=== PATIENT | male | born 1990 | race American Indian/Alaskan Native ===

== ENCOUNTER 2021-02-15 12:20 | Inpatient (IN) | payer SELFPAY ==
[2021-02-15] MEDS ORDERED: NORepinephrine/NS 4 MG-250 ML 4 MG/250 ML BAG IV ONE (12:32)
[2021-02-15] MEDS ORDERED: NORepinephrine/NS 4 MG-250 ML 4 MG/250 ML BAG IV SCH (13:00)
[2021-02-15] MEDS ORDERED: ATROPINE 0.1% (1 MG/10 ML) CARDIAC SYRINGE IV ONE (13:10)
[2021-02-15] MEDS ORDERED: CALCIUM CHLORIDE 1,000 MG in SODIUM CHLORIDE 0.9% 100 ML IV ONE ×2 (13:10→14:00)
[2021-02-15] MEDS ORDERED: MAGNESIUM SULFATE 2 GM/50 ML BAG IV ONE (13:10)
[2021-02-15] MEDS ORDERED: fentaNYL 100 MCG/2 ML INJ IV PRN (13:10)
[2021-02-15] MEDS ORDERED: MINERAL OIL/PETROLATUM, WHITE OPHTH OINT 3.5 GM OU PRN (13:10)
[2021-02-15] MEDS ORDERED: LIP THERAPY VASELINE TP PRN (13:10)
[2021-02-15] MEDS ORDERED: DEXTROSE 50% IN WATER (25GM) 50 ML VIAL IV PRN (13:18)
[2021-02-15] MEDS ORDERED: DEXTROSE 50% IN WATER (25GM) 50 ML VIAL IV ONE (13:18)
[2021-02-15] MEDS ORDERED: CEFEPIME/NS 2 GM/100 ML 2 GM/100 ML BAG IV ONE (13:19)
[2021-02-15] MEDS ORDERED: HYDROCORTISONE SOD SUCC 100 MG/2 ML VIAL IV ONE (13:19)
[2021-02-15] MEDS ORDERED: LACTATED RINGERS 1,000 ML IV ONE (13:21)
--- NOTE | 2021-02-15 13:21 | Emergency Department Report ---
ED General Adult HPI - General Chief complaint: Cardiac Arrest/CPR Stated complaint: CARDIAC ARREST Time Seen by Provider: 02/15/21 13:04 Source: EMS (Verbal report received from emergency medical services. EMS documentation not available at time of chart dictation ), RN notes reviewed Mode of arrival: Stretcher Limitations: Altered Mental Status, Physical Limitation - History of Present Illness Initial comments: The patient is a 30-year-old gentleman. He is not known to myself previously. He is brought to the hospital by emergency medical services as an [id number] nontraumatic cardiac arrest. Patient arrives with a Kushal airway in place, receiving CPR by EMS. He presents with a GCS of 3, at this point time, family and friends not available for additional information or collateral information. All history obtained from EMS. EMS reports that they received a call for an unresponsive patient. They believe the patient's total downtime prior to their arrival is approximately 10 minutes. EMS states the family did not start CPR in the field. EMS reports that upon their arrival, the patient is pulseless, with dilated pupils, they do not believe a check an Accu-Chek, and they intubated the patient with a Kushal airway. They report the patient's initial rhythm was pulseless electrical activity. EMS continue standard ACLS interventions for approximately 20 minutes, until they arrived to this emergency department. When the patient arrived to the emergency room, pupils are midpoint and do not react to light, has copious oral secretions coming from oropharynx, and he is found to be in pulseless electrical activity. Standard ACLS interventions are administered. He is found to have sinan lower extremity edema, as well as impressive JVD. During his resuscitation, a bedside [id number] transthoracic echocardiogram was performed, which demonstrated a pericardial effusion, what appeared to be clot formation in the right atrium and the right ventricle, LV hypokinesis, and right ventricular dyskinesis. While in the emergency room, QRS morphology widened out, became suspicious for monomorphic ventricular tachycardia. Given concern for hyperkalemia, secondary to JVD, and sinan lower extremity edema, patient treated aggressively for presumed hyperkalemic cardiac arrest, including standard ACLS interventions, with the exception of amiodarone, as we are concerned that amiodarone may precipitate cardiovascular collapse and cause complete cardiac arrest. Patient received multiple rounds of epinephrine, calcium, sodium bicarbonate. Bedside Accu-Chek found to be less than 20, therefore insulin is held. The patient was defibrillated multiple times. While in the emergency room, the patient lost pulses multiple times. Secondary to loss of pulses multiple times, vasopressor requirement, medication requirement, the patient had an emergent nonsterile right-sided femoral central line placed using real-time ultrasound guidance. Please reference the procedure note. After a prolonged resuscitation (please reference nursing notes), we were able to obtain return of spontaneous circulation, with QRS complexes narrowing. The patient is on vasopressors, with a GCS of 3. This hospital does not have a postarrest hypothermia protocol, the patient is also found to be hypothermic with a core temperature of 87 degrees. Laboratory studies demonstrated anemia, hyperkalemia, azotemia, uremia and metabolic acidosis. He is also found to have evidence of hypoglycemia. Packed red blood cells ordered. Protonix ordered. Norepinephrine ordered. Hyperkalemia cocktail ordered. D5 half-normal ordered. Contacted nephrology on-call, Dr. Yuen. Discussed the patient's history, physical, laboratory studies and clinical impression. He will evaluate the patient emergently. This patient requires emergent hemodialysis, Dr. Yuen and I will provide emergent and administrative consent for hemodialysis Elevated troponin is likely secondary to type II troponin leak. Contacted critical care physician on-call, Dr. Manriquez Have requested emergent critical care consultation for dialysis catheter placement. Currently awaiting callback from family. Please note that this hospital in critical care unit do not have a postarrest hypothermia protocol. -: This morning - Related Data Allergies Allergy/AdvReac Type Severity Reaction Status Date / Time Unable to Assess Allergy Verified 02/15/21 12:34 ED Review of Systems ROS: Stated complaint: CARDIAC ARREST Other details as noted in HPI Comment: Unobtainable due to pts medical conditions ED Physical Exam - General Limitations: Altered Mental Status, Other General appearance: obtunded - Head Head exam: Present: atraumatic, normocephalic - Eye Eye exam: Present: other (Pupils are midpoint and dilated) - ENT ENT exam: Present: normal orophraynx, normal external ear exam, other (Copious secretions noted in the oropharynx. Patient arrives with a Kushal airway in place. Multiple maxillary teeth are noted to be loose and mobile. These are present upon arrival) - Neck Neck exam: Present: normal inspection, other (JVD is noted) - Respiratory Respiratory exam: Present: respiratory distress, rales, rhonchi - Cardiovascular Cardiovascular Exam: Present: bradycardia, JVD - GI/Abdominal GI/Abdominal exam: Present: soft. Absent: distended, tenderness, guarding, rigid, pulsatile mass - Rectal Rectal exam: Present: normal inspection - exam: Present: normal inspection External exam: Present: normal external exam - Extremities Exam Extremities exam: Present: normal inspection, pedal edema (3-4+ edema in the bilateral lower extremities), other (2+ femoral pulses noted) - Back Exam Back exam: Present: normal inspection. Absent: tenderness, CVA tenderness (R), CVA tenderness (L), paraspinal tenderness, vertebral tenderness - Neurological Exam Neurological exam: Present: altered, other (Patient has a GCS of 3.) - Skin Skin exam: Present: warm, dry, intact, normal color. Absent: rash ED Course Vital Signs 02/15/21 02/15/21 02/15/21 12:28 12:38 12:45 Temperature Pulse Rate 66 Pulse Rate [ Anterior Bilateral Throughout] Respiratory 14 Rate Respiratory Rate [Anterior Bilateral Throughout] Blood Pressure Blood Pressure 85/45 73/48 [Left] O2 Sat by Pulse 100 Oximetry O2 Sat by Pulse Oximetry [ Anterior Bilateral Throughout] 02/15/21 02/15/21 02/15/21 12:58 13:00 13:10 Temperature 87.1 F L 87.1 F L Pulse Rate 71 76 71 Pulse Rate [ Anterior Bilateral Throughout] Respiratory 17 17 Rate Respiratory Rate [Anterior Bilateral Throughout] Blood Pressure 123/79 99/56 Blood Pressure 99/56 [Left] O2 Sat by Pulse 81 L 100 100 Oximetry O2 Sat by Pulse Oximetry [ Anterior Bilateral Throughout] 02/15/21 02/15/21 02/15/21 13:17 13:20 13:22 Temperature Pulse Rate 82 81 75 Pulse Rate [ Anterior Bilateral Throughout] Respiratory 18 12 11 L Rate Respiratory Rate [Anterior Bilateral Throughout] Blood Pressure Blood Pressure 126/93 164/93 152/101 [Left] O2 Sat by Pulse 92 92 91 Oximetry O2 Sat by Pulse Oximetry [ Anterior Bilateral Throughout] 02/15/21 02/15/21 02/15/21 13:45 14:52 15:02 Temperature 89.1 F L Pulse Rate Pulse Rate [ 78 Anterior Bilateral Throughout] Respiratory Rate Respiratory 16 Rate [Anterior Bilateral Throughout] Blood Pressure Blood Pressure [Left] O2 Sat by Pulse 100 Oximetry O2 Sat by Pulse Oximetry [ Anterior Bilateral Throughout] 02/15/21 02/15/21 02/15/21 16:00 16:15 16:30 Temperature Pulse Rate 75 75 83 Pulse Rate [ Anterior Bilateral Throughout] Respiratory 22 Rate Respiratory Rate [Anterior Bilateral Throughout] Blood Pressure 130/86 130/86 112/75 Blood Pressure [Left] O2 Sat by Pulse Oximetry O2 Sat by Pulse 95 Oximetry [ Anterior Bilateral Throughout] 02/15/21 02/15/21 02/15/21 16:39 16:45 17:00 Temperature Pulse Rate 88 85 85 Pulse Rate [ Anterior Bilateral Throughout] Respiratory Rate Respiratory Rate [Anterior Bilateral Throughout] Blood Pressure 112/75 67/32 75/40 Blood Pressure [Left] O2 Sat by Pulse 100 Oximetry O2 Sat by Pulse Oximetry [ Anterior Bilateral Throughout] 02/15/21 02/15/21 02/15/21 17:15 17:30 17:34 Temperature Pulse Rate 89 98 H 98 H Pulse Rate [ Anterior Bilateral Throughout] Respiratory Rate Respiratory Rate [Anterior Bilateral Throughout] Blood Pressure 86/43 107/63 107/63 Blood Pressure [Left] O2 Sat by Pulse Oximetry O2 Sat by Pulse Oximetry [ Anterior Bilateral Throughout] 02/15/21 02/15/21 02/15/21 17:45 18:00 18:15 Temperature Pulse Rate 99 H 100 H 102 H Pulse Rate [ Anterior Bilateral Throughout] Respiratory Rate Respiratory Rate [Anterior Bilateral Throughout] Blood Pressure 101/60 100/60 115/72 Blood Pressure [Left] O2 Sat by Pulse Oximetry O2 Sat by Pulse Oximetry [ Anterior Bilateral Throughout] 02/15/21 18:34 Temperature 92.2 F L Pulse Rate 101 H Pulse Rate [ Anterior Bilateral Throughout] Respiratory 19 Rate Respiratory Rate [Anterior Bilateral Throughout] Blood Pressure 113/73 Blood Pressure [Left] O2 Sat by Pulse Oximetry O2 Sat by Pulse 95 Oximetry [ Anterior Bilateral Throughout] - Reevaluation(s) Reevaluation #1: 02/15/21 14:19 Differential diagnosis, including but not limited to: Azotemia, uremia, hyperkalemia, cardiac arrest, pericardial effusion, myocarditis, pericarditis, pneumonia, pneumonitis, anoxic brain injury, respiratory failure, anemia of renal insufficiency/chronic disease Assessment and plan: 30-year-old gentleman, status post out of hospital cardiac arrest, family did not provide CPR, pulseless for approximately 1/2-hour, has lost pulses multiple times while here in the emergency room, but ultimately we are able to obtain return of spontaneous circulation. Maintain patient on hand sewer shoes. Continue supportive care. Have requested emergent critical care, nephrology, and cardiology consultation. This hospital does not have a postarrest hypothermia protocol. Patient to be medicated aggressively for hyperkalemia. Nephrology to see patient urgently/emergently, and place hemodialysis orders. Critical care contacted, will evaluate the patient, place hemodialysis catheter, and arrange for placement to the intensive care unit. Elevated troponin reviewed and appreciated. Suspect that this is a type II troponin leak. Start antibiotics, steroids, packed red blood cells, and Protonix. Stress dose steroids empirically. Broad-spectrum antibiotics. When feasible, obtain CT scan of the brain, cervical spine and chest. Patient is critically ill, and requires emergent hemodialysis. He may require further inpatient medical stabilization, secondary to acquisition of CT scan chest, cervical spine, and brain. We will also discuss with cardiology on-call, given cardiac arrest, EKG morphology, and concern for pericardial effusion. Unfortunately, neurologic prognosis is poor/guarded. Hospital physician is paged to arrange admission. 02/15/21 14:47 Dr Mckenna Moran to admit to ICU Hospital team agrees to follow-up on CT scans after the patient has been medically stabilized. Have repeated transthoracic bedside echocardiogram. Effusion still present, however, ejection fraction looks much improved. LV function looks much improved. Estimate ejection fraction to be 45 to 50% at this time. Do not appreciate significant clot formation and right cardiac circulation. Contacted cardiology on-call, Dr. Salinas. I discussed the patient's history, physical, laboratory studies and clinical impression. He has also evaluated the patient's bedside [id number] transthoracic echocardiogram. Advises that this is unlikely to represent tamponade. Cardiology will follow on for inpatient consultation. 02/15/21 14:49 02/15/21 19:58 Repeat laboratory studies reviewed and appreciated. Anemia improving. H yperkalemia improving. Azotemia and uremia improving. Troponin likely type II troponin leak. Defer to inpatient team to further manage. Defer to inpatient team to follow-up on CT scan brain, C-spine, chest. Reevaluation #2: 02/15/21 16:41 Hemodynamically appears improved. Still comatose with a GCS of 3. QRS complexes appear much more narrow on monitor. Critical care has evaluated the patient, and placed a dialysis catheter. Appreciate their input and recommendations. X-rays reviewed and appreciated. Free T4 reviewed and appreciated. TSH reviewed and appreciated. Patient currently on hemodialysis at this time. We discussed with nephrology. Advises that since patient is currently on hemodialysis, additional medications ordered for hyperkalemia cocktail may not be necessary. We will order repeat laboratory studies to be completed hemodialysis session. Prognosis is still very guarded. - Central Line Placement Right Femoral Consent Obtained: emergent situation Time Out Performed: No (Emergency situation) Patient Placed on Monitor/Pulse Ox: Yes MD Prep: mask, gown, gloves Central Line Prep: Povidone-Iodine 1% Ultrasound Used for Placement: No Central Line Lumen Inserted: triple Reason for Insertion: Emergency Venous Access (High alert medication, volume resuscitation) Bloods Obtained for Lab: Yes Central Line Position: good blood return, all ports aspirated, flus, sutured in place with 2-0 Patient Tolerated Procedure: well Complications: none Additional Comments: Patient arrested multiple times here in the emergency room. Secondary to hemodynamic instability, need for central venous access, requirement for vasopressors, patient required nonsterile emergent crash central line. The central line was placed in the right femoral vein. There were no obvious complications. Recommend that this line be removed and replaced with a sterile line within 24 hours. - EJ/Peripheral Line Arm R Time Out Performed: No (Emergency situation) Indications: multiple IV sites needed Skin Cleansed in Sterile Fashion: Yes Size: 18 Dressing Placed: Tegaderm Patient Tolerated Procedure: well - Intubation Time Out Performed: No (Emergency situation) Laryngoscope: fiberoptic video scope Assist Device Used: Bougie ET Tube Size: 7.5 Tube Secured Depth (cm): 24 Tube Secured Location: teeth Tube Placement Confirmation: visualized tube passing t, equal breath sounds bilat, no breath sounds over epi Patient Tolerated Procedure: well Intubation Complications: none Additional Comments: After return of spontaneous circulation patient has a GCS of 3. Patient placed on nasal cannula at 15 L/min. After return of spontaneous circulation, Kushal airway commercial helicopter pilot balloon is deflated. It is removed. Video laryngoscopy is performed. Patient noted to have mild bile and loose teeth on the maxilla. This is present prior to performing video laryngoscopy. The airways aggressively suction. Gum elastic bougie catheter is placed in the oropharynx, and is directly visualized to pass into the trachea. Palpable clicks are appreciated. 7.5 endotracheal tube is then placed over the gum elastic bougie. It is placed in the trachea, and the commercial helicopter pilot balloon is inflated. There is appropriate end-tidal capnography color change. There is symmetric chest rise bilaterally. ED Medical Decision Making - Lab Data Result diagrams: 02/15/21 19:02 02/15/21 19:02 Lab Results 02/15/21 02/15/21 02/15/21 Range/Units 13:04 13:04 13:04 WBC 2.3 L (4.5-11.0) K/mm3 RBC 1.54 L (3.65-5.03) M/mm3 Hgb 3.5 L* (11.8-15.2) gm/dl Hct 11.8 L* (35.5-45.6) % MCV 77 L (84-94) fl MCH 23 L (28-32) pg MCHC 30 L (32-34) % RDW 22.3 H (13.2-15.2) % Plt Count 169 (140-440) K/mm3 PT 19.9 H (12.2-14.9) Sec. INR 1.53 H (0.87-1.13) D-Dimer 3584.01 H (0-234) ng/mlDDU Sodium (137-145) mmol/L Potassium (3.6-5.0) mmol/L Chloride (98-107) mmol/L Carbon Dioxide (22-30) mmol/L Anion Gap mmol/L BUN (9-20) mg/dL Creatinine (0.8-1.3) mg/dL Estimated GFR ml/min BUN/Creatinine Ratio % Glucose (75-100) mg/dL POC Glucose (70-105) mg/dL Calcium (8.4-10.2) mg/dL Ferritin (30.0-300.0) ng/mL Total Bilirubin (0.1-1.2) mg/dL AST (5-40) units/L ALT (7-56) units/L Alkaline Phosphatase (35-129) units/L Lactate Dehydrogenase (91-180) units/L Total Creatine Kinase (55-170) units/L CK-MB (CK-2) (0.0-4.0) ng/mL CK-MB (CK-2) Rel Index (0-4) Troponin T (0.00-0.029) ng/mL C-Reactive Protein (0.00-1.30) mg/dL Total Protein (6.3-8.2) g/dL Albumin (3.9-5) g/dL Albumin/Globulin Ratio % TSH (0.270-4.200) mlU/mL Salicylates (2.8-20.0) mg/dL Acetaminophen (10.0-30.0) ug/mL Plasma/Serum Alcohol (0-0.07) % Blood Type O POSITIVE Crossmatch See Detail 02/15/21 02/15/21 02/15/21 Range/Units 13:04 13:04 13:04 WBC (4.5-11.0) K/mm3 RBC (3.65-5.03) M/mm3 Hgb (11.8-15.2) gm/dl Hct (35.5-45.6) % MCV (84-94) fl MCH (28-32) pg MCHC (32-34) % RDW (13.2-15.2) % Plt Count (140-440) K/mm3 PT (12.2-14.9) Sec. INR (0.87-1.13) D-Dimer (0-234) ng/mlDDU Sodium 142 (137-145) mmol/L Potassium 9.7 H* (3.6-5.0) mmol/L Chloride 111.2 H (98-107) mmol/L Carbon Dioxide 13 L (22-30) mmol/L Anion Gap 28 mmol/L BUN 73 H (9-20) mg/dL Creatinine 6.5 H (0.8-1.3) mg/dL Estimated GFR 12 ml/min BUN/Creatinine Ratio 11 % Glucose 20 L* (75-100) mg/dL POC Glucose (70-105) mg/dL Calcium 12.0 H (8.4-10.2) mg/dL Ferritin 211.3 (30.0-300.0) ng/mL Total Bilirubin 0.20 (0.1-1.2) mg/dL AST 605 H (5-40) units/L ALT 406 H (7-56) units/L Alkaline Phosphatase 85 (35-129) units/L Lactate Dehydrogenase 1369 H (91-180) units/L Total Creatine Kinase (55-170) units/L CK-MB (CK-2) (0.0-4.0) ng/mL CK-MB (CK-2) Rel Index (0-4) Troponin T (0.00-0.029) ng/mL C-Reactive Protein 5.30 H (0.00-1.30) mg/dL Total Protein 5.9 L (6.3-8.2) g/dL Albumin 1.5 L (3.9-5) g/dL Albumin/Globulin Ratio 0.3 % TSH (0.270-4.200) mlU/mL Salicylates (2.8-20.0) mg/dL Acetaminophen (10.0-30.0) ug/mL Plasma/Serum Alcohol (0-0.07) % Blood Type Crossmatch 02/15/21 02/15/21 02/15/21 Range/Units 13:04 13:04 13:04 WBC (4.5-11.0) K/mm3 RBC (3.65-5.03) M/mm3 Hgb (11.8-15.2) gm/dl Hct (35.5-45.6) % MCV (84-94) fl MCH (28-32) pg MCHC (32-34) % RDW (13.2-15.2) % Plt Count (140-440) K/mm3 PT (12.2-14.9) Sec. INR (0.87-1.13) D-Dimer (0-234) ng/mlDDU Sodium (137-145) mmol/L Potassium (3.6-5.0) mmol/L Chloride (98-107) mmol/L Carbon Dioxide (22-30) mmol/L Anion Gap mmol/L BUN (9-20) mg/dL Creatinine (0.8-1.3) mg/dL Estimated GFR ml/min BUN/Creatinine Ratio % Glucose (75-100) mg/dL POC Glucose (70-105) mg/dL Calcium (8.4-10.2) mg/dL Ferritin (30.0-300.0) ng/mL Total Bilirubin (0.1-1.2) mg/dL AST (5-40) units/L ALT (7-56) units/L Alkaline Phosphatase (35-129) units/L Lactate Dehydrogenase (91-180) units/L Total Creatine Kinase (55-170) units/L CK-MB (CK-2) (0.0-4.0) ng/mL CK-MB (CK-2) Rel Index (0-4) Troponin T (0.00-0.029) ng/mL C-Reactive Protein (0.00-1.30) mg/dL Total Protein (6.3-8.2) g/dL Albumin (3.9-5) g/dL Albumin/Globulin Ratio % TSH 7.000 H (0.270-4.200) mlU/mL Salicylates < 0.3 L (2.8-20.0) mg/dL Acetaminophen 5.0 L (10.0-30.0) ug/mL Plasma/Serum Alcohol (0-0.07) % Blood Type Crossmatch 02/15/21 02/15/21 02/15/21 Range/Units 13:04 13:07 13:08 WBC (4.5-11.0) K/mm3 RBC (3.65-5.03) M/mm3 Hgb (11.8-15.2) gm/dl Hct (35.5-45.6) % MCV (84-94) fl MCH (28-32) pg MCHC (32-34) % RDW (13.2-15.2) % Plt Count (140-440) K/mm3 PT (12.2-14.9) Sec. INR (0.87-1.13) D-Dimer (0-234) ng/mlDDU Sodium (137-145) mmol/L Potassium (3.6-5.0) mmol/L Chloride (98-107) mmol/L Carbon Dioxide (22-30) mmol/L Anion Gap mmol/L BUN (9-20) mg/dL Creatinine (0.8-1.3) mg/dL Estimated GFR ml/min BUN/Creatinine Ratio % Glucose (75-100) mg/dL POC Glucose 11 L 13 L (70-105) mg/dL Calcium (8.4-10.2) mg/dL Ferritin (30.0-300.0) ng/mL Total Bilirubin (0.1-1.2) mg/dL AST (5-40) units/L ALT (7-56) units/L Alkaline Phosphatase (35-129) units/L Lactate Dehydrogenase (91-180) units/L Total Creatine Kinase (55-170) units/L CK-MB (CK-2) (0.0-4.0) ng/mL CK-MB (CK-2) Rel Index (0-4) Troponin T (0.00-0.029) ng/mL C-Reactive Protein (0.00-1.30) mg/dL Total Protein (6.3-8.2) g/dL Albumin (3.9-5) g/dL Albumin/Globulin Ratio % TSH (0.270-4.200) mlU/mL Salicylates (2.8-20.0) mg/dL Acetaminophen (10.0-30.0) ug/mL Plasma/Serum Alcohol < 0.01 (0-0.07) % Blood Type Crossmatch 02/15/21 Range/Units 13:10 WBC (4.5-11.0) K/mm3 RBC (3.65-5.03) M/mm3 Hgb (11.8-15.2) gm/dl Hct (35.5-45.6) % MCV (84-94) fl MCH (28-32) pg MCHC (32-34) % RDW (13.2-15.2) % Plt Count (140-440) K/mm3 PT (12.2-14.9) Sec. INR (0.87-1.13) D-Dimer (0-234) ng/mlDDU Sodium Cancelled (137-145) mmol/L Potassium Cancelled (3.6-5.0) mmol/L Chloride Cancelled (98-107) mmol/L Carbon Dioxide Cancelled (22-30) mmol/L Anion Gap Cancelled mmol/L BUN Cancelled (9-20) mg/dL Creatinine Cancelled (0.8-1.3) mg/dL Estimated GFR Cancelled ml/min BUN/Creatinine Ratio Cancelled % Glucose Cancelled (75-100) mg/dL POC Glucose (70-105) mg/dL Calcium Cancelled (8.4-10.2) mg/dL Ferritin (30.0-300.0) ng/mL Total Bilirubin (0.1-1.2) mg/dL AST (5-40) units/L ALT (7-56) units/L Alkaline Phosphatase (35-129) units/L Lactate Dehydrogenase Cancelled (91-180) units/L Total Creatine Kinase 462 H (55-170) units/L CK-MB (CK-2) 20.8 H (0.0-4.0) ng/mL CK-MB (CK-2) Rel Index 4.5 H (0-4) Troponin T 0.554 H* (0.00-0.029) ng/mL C-Reactive Protein Cancelled (0.00-1.30) mg/dL Total Protein (6.3-8.2) g/dL Albumin (3.9-5) g/dL Albumin/Globulin Ratio % TSH (0.270-4.200) mlU/mL Salicylates (2.8-20.0) mg/dL Acetaminophen (10.0-30.0) ug/mL Plasma/Serum Alcohol (0-0.07) % Blood Type Crossmatch - EKG Data -: EKG Interpreted by Me - EKG Data 02/15/21 14:08 EKG #1 is interpreted at 13: 17 Accelerated junctional rhythm, rate 85 bpm. There is a rightward axis. The QTC is prolonged. There is motion artifact. This is an abnormal EKG. This is not a STEMI. - Radiology Data Radiology results: pending, report reviewed, image reviewed interpreted by me: 1 view x-ray of the chest shows cardiomegaly pulmonary vascular congestion. [facility] [address] [place] [address] XRay Report Signed Patient: ADRIANE WHITE JR MR#: [id number] : 1990 Acct:[id number] Age/Sex: 30 / M ADM Date: 02/15/21 Loc: ED Attending Dr: Ordering Physician: ANKITA CALVO MD Date of Service: 02/15/21 Procedure(s): XR chest 1V ap Accession Number(s): [id number] cc: ANKITA CALVO MD Fluoro Time In Minutes: CHEST 1 VIEW 02/15/2021 3:53 PM INDICATION / CLINICAL INFORMATION: CVL placement confirmation. COMPARISON: Earlier today at 1:14 PM. FINDINGS: SUPPORT DEVICES: There is a new right jugular CVL with the tip overlying the mid SVC. The tip of the endotracheal tube is now 5.8 cm above the lidia. HEART / MEDIASTINUM: Enlargement of the cardiopericardial silhouette appears mildly improved. LUNGS / PLEURA: Extensive bilateral parenchymal opacities have not changed significantly. No pneumothorax. ADDITIONAL FINDINGS: Mild gaseous distention of the stomach has increased. IMPRESSION: 1. Right jugular CVL placement without complication. 2. Mild gaseous distention of the stomach has increased. Signer Name: Herbie Zapata MD Signed: 02/15/2021 4:20 PM Workstation Name: [id number] Transcribed By: RT Dictated By: Herbie Zapata MD Electronically Authenticated By: Herbie Zapata MD Signed Date/Time: 02/15/21 1620 DD/ [address] [address] XRay Report Signed Patient: ADRIANE WHITE JR MR#: [id number] : 1990 Acct:[id number] Age/Sex: 30 / M ADM Date: 02/15/21 Loc: ED Attending Dr: Ordering Physician: ANNI BREAUX MD Date of Service: 02/15/21 Procedure(s): XR chest 1V ap Accession Number(s): [id number] cc: ANNI BREAUX MD Fluoro Time In Minutes: CHEST 1 VIEW 02/15/2021 1:13 PM INDICATION / CLINICAL INFORMATION: ETT placement. COMPARISON: None available. FINDINGS: SUPPORT DEVICES: There is an endotracheal tube with the tip 2 cm above the lidia. HEART / MEDIASTINUM: There is marked generalized enlargement of the cardiopericardial silhouette. LUNGS / PLEURA: There is severe patchy parenchymal disease bilaterally which is predominantly groundglass in appearance. There are more focal areas of consolidation in both upper lobes, greater on the right and in the left retrocardiac region. No large pleural effusion. No pneumothorax. ADDITIONAL FINDINGS: There is mild gaseous distention of the stomach. IMPRESSION: 1. En dotracheal tube tip is 2 cm above the lidia. 2. Marked enlargement of the cardiopericardial silhouette may be related to cardiomyopathy and/or pericardial effusion. 3. Severe bilateral parenchymal disease may be related to pneumonia, aspiration, asymmetric edema or diffuse alveolar damage. Signer Name: Herbie Zapata MD Signed: 02/15/2021 2:29 PM Workstation Name: [id number] Transcribed By: RT Dictated By: Herbie Zapata MD Electronically Authenticated By: Herbie Zapata MD Signed Date/Time: 02/15/211428 DD/ 24 Critical Care Time: Yes Critical care time in (mins) excluding proc time.: 180 Critical care attestation.: If time is entered above; I have spent that time in minutes in the direct care o f this critically ill patient, excluding procedure time. ED Disposition Clinical Impression: Cardiac arrest, Hyperkalemia, Anemia, Hypoglycemia, Azotemia, Uremia, Hypothermia Disposition: 09 ADMITTED INPATIENT Is pt being admited?: Yes Does the pt Need Aspirin: No Condition: Critical
[2021-02-15 13:40] LABS: Mean Corpuscular HGB Conc 30 % (32-34); Mean Corpuscular Volume 77 fl (84-94); Platelet Count 169 K/mm3 (140-440); Red Blood Count 1.54 M/mm3 (3.65-5.03)
[2021-02-15 13:41] LABS: INR 1.53 (0.87-1.13)
[2021-02-15 13:43] LABS: Hematocrit 11.8 % (35.5-45.6); Hemoglobin 3.5 gm/dl (11.8-15.2)
[2021-02-15 13:44] LABS: Albumin 1.5 g/dL (3.9-5); Red Cell Distribution Width 22.3 % (13.2-15.2)
[2021-02-15] MEDS ORDERED: PANTOPRAZOLE 40 MG INJ IV ONE (13:45)
[2021-02-15] MEDS ORDERED: SODIUM CHLORIDE 0.9% 500 ML 500 ML IV ONE (13:45)
[2021-02-15 13:48] LABS: C-Reactive Protein 5.3 mg/dL (0.00-1.30)
[2021-02-15 13:51] LABS: Creatine Kinase MB 20.8 ng/mL (0.0-4.0)
[2021-02-15] MEDS ORDERED: ALBUTEROL 2.5 MG/3 ML NEBU IH ONE (13:55)
[2021-02-15] MEDS ORDERED: SODIUM BICARB 8.4% 50 MEQ/50 ML SYRINGE IV ONE ×2 (13:55→16:00)
[2021-02-15] MEDS ORDERED: DEXTROSE 50% IN WATER (25GM) 50 ML SYRINGE IV PRN (14:00)
[2021-02-15] MEDS ORDERED: fentaNYL DRIP Premix 2,000 MCG/100 ML BAG IV SCH (14:00)
[2021-02-15] MEDS ORDERED: D5W/0.45% NACL 1,000 ML IV SCH (14:00)
[2021-02-15] MEDS ORDERED: PANTOPRAZOLE 80 MG in SODIUM CHLORIDE 0.9% 100 ML IV SCH (14:00)
[2021-02-15] MEDS ORDERED: SODIUM CHLORIDE 0.9% IV ONE (14:00)
[2021-02-15] MEDS ORDERED: DESMOPRESSIN ACETATE IV ONE (14:00)
[2021-02-15 14:09] LABS: Partial Thromboplastin Time 89.3 Sec. (24.2-36.6)
[2021-02-15 14:24] LABS: Chol/HDL Ratio 3.03 %
--- NOTE | 2021-02-15 14:33 | XRay Report ---
CHEST 1 VIEW 02/15/2021 1:13 PM INDICATION / CLINICAL INFORMATION: ETT placement. COMPARISON: None available. FINDINGS: SUPPORT DEVICES: There is an endotracheal tube with the tip 2 cm above the lidia. HEART / MEDIASTINUM: There is marked generalized enlargement of the cardiopericardial silhouette. LUNGS / PLEURA: There is severe patchy parenchymal disease bilaterally which is predominantly groundg lass in appearance. There are more focal areas of consolidation in both upper lobes, greater on the r ight and in the left retrocardiac region. No large pleural effusion. No pneumothorax. ADDITIONAL FINDINGS: There is mild gaseous distention of the stomach. IMPRESSION: 1. Endotracheal tube tip is 2 cm above the lidia. 2. Marked enlargement of the cardiopericardial silhouette may be related to cardiomyopathy and/or per icardial effusion. 3. Severe bilateral parenchymal disease may be related to pneumonia, aspiration, asymmetric edema or diffuse alveolar damage. Signer Name: Herbie Zapata MD Signed: 02/15/2021 2:29 PM Workstation Name: [id number]
[2021-02-15] MEDS ORDERED: SODIUM CHLORIDE 0.9% 100 ML IV PRN (14:38)
--- NOTE | 2021-02-15 14:43 | Emergency Department Report ---
Blank Doc - Documentation Documentation: Patient presents with cardiac arrest, K >9. Needs STAT HD, orders placed and discussed with on-call dialysis nurse. Emergent dual physician consent obtained with ED physician as unable to reach family urgently. Note anemia- will need blood transfusion as well. Official consult to follow
[2021-02-15 14:45] LABS: ABG Base Excess -18.6 mmol/L (-2.0-3.0); ABG HCO3 12.4 mmol/L (20.0-26.0); ABG Methemoglobin 0.5 % (0.0-1.5); ABG Oxygen Saturation 99.3 % (95.0-99.0); ABG PCO2 73.7 mm Hg
[2021-02-15 14:50] LABS: ABG PO2 296.7 mm Hg (80.0-90.0)
[2021-02-15 14:52] LABS: ABG PH 6.845 pH Units (7.350-7.450)
[2021-02-15] MEDS ORDERED: propofoL 200 MG/20 ML VIAL IV ONE (15:16)
[2021-02-15 15:53] LABS: Band Neutrophils # (Manual) 0.1 K/mm3; Total Cells Counted 100
[2021-02-15 15:56] LABS: Hypochromasia 2+; Platelet Estimate Consistent w Auto; Tear Drop Cells Few
[2021-02-15] MEDS ORDERED: LIDOCAINE PF 100 MG/5 ML (CARDIAC SYRINGE) IV ONE (16:00)
[2021-02-15] MEDS ORDERED: ATROPINE 0.1% (1 MG/10 ML) CARDIAC SYRINGE ONE (16:00)
[2021-02-15] MEDS ORDERED: CALCIUM CHLORIDE 1,000 MG/10 ML SYRINGE IV ONE (16:00)
[2021-02-15] MEDS ORDERED: DEXTROSE 50% IN WATER (25GM) 50 ML SYRINGE IV ONE (16:00)
[2021-02-15] MEDS ORDERED: EPINEPHrine 1 MG/10 ML SYRINGE ONE (16:00)
--- NOTE | 2021-02-15 16:04 | Consultation ---
History of Present Illness Consult date: 02/15/21 Requesting physician: ANNI BREAUX Reason for consult: other (Cardiac Arrest with [facility]) History of present illness: PCCM CONSULT NOTE (Full dictation # [id number]) Please see dictated notes for full details Medications and Allergies Allergies Allergy/AdvReac Type Severity Reaction Status Date / Time Unable to Assess Allergy Verified 02/15/21 12:34 Active Meds: Active Medications Dextrose (Dextrose 50% In Water (25gm) 50 Ml Syringe) 50 ml IV Q30MIN PRN; Protocol PRN Reason: Hypoglycemia Famotidine (Famotidine 20 Mg/2 Ml Inj) 20 mg IV BID BOY Fentanyl (Fentanyl 100 Mcg/2 Ml Inj) 50 mcg IV Q10MIN PRN PRN Reason: ANALGESIA Hydrophilic Ointment (Lip Therapy Vaseline) 1 applic TP Q2HR PRN PRN Reason: Dry Lips Norepinephrine (Levophed Drip 4 Mg/Ns 250 Ml) 4 mg in 250 mls @ 7.5 mls/hr IV TITR BOY; Protocol Last Titration: 02/15/21 15:44 Dose: 3.6 mcg/min, 13.5 mls/hr Documented by: Fentanyl Citrate (Fentanyl Drip Premix) 2,000 mcg in 100 mls @ 3.856 mls/hr IV TITR BOY; Protocol Dextrose/Sodium Chloride (D5/0.45ns) 1,000 mls @ 150 mls/hr IV DIRECT BOY Pantoprazole Sodium 80 mg/ (Sodium Chloride) 100 mls @ 10 mls/hr IV DIRECT BOY Sodium Chloride (Nacl 0.9%) 100 mls @ 999 mls/hr IV RAFIQ PRN PRN Reason: Hypotension Propofol (Diprivan 10 Mg/Ml) 1,000 mg in 100 mls @ 2.313 mls/hr IV TITR BOY; Protocol Multi-Ingred Cream/Lotion/Oil/Oint (Mineral Oil/Petrolatum, White Ophth Oint 3.5 Gm) 1 applic OU Q4HR PRN PRN Reason: Dry Eye(s) Senna/Docusate Sodium (Sennosides/Docusate Sodium 8.6/50 Mg Tab) 1 tab FEEDTUBE BID BOY Physical Examination Vital signs: Vital Signs Pulse Resp BP 66 14 85/45 02/15/21 12:38 02/15/21 12:38 02/15/21 12:38 Results - Laboratory Findings CBC and BMP: 02/15/21 19:02 02/15/21 19:02 ABG ABG pH 6.845 pH Units (7.350-7.450) L* 02/15/21 14:23 ABG pCO2 73.7 mm Hg 02/15/21 14:23 ABG pO2 296.7 mm Hg (80.0-90.0) H 02/15/21 14:23 ABG O2 Saturation 99.3 % (95.0-99.0) H 02/15/21 14:23 PT/INR, D-dimer PT 19.9 Sec. (12.2-14.9) H 02/15/21 13:04 INR 1.53 (0.87-1.13) H 02/15/21 13:04 D-Dimer 3584.01 ng/mlDDU (0-234) H 02/15/21 13:04 Abnormal lab findings: Abnormal Labs 02/15/21 02/15/21 02/15/21 13:02 13:04 13:04 WBC 2.3 L RBC 1.54 L Hgb 3.5 L* Hct 11.8 L* MCV 77 L MCH 23 L MCHC 30 L RDW 22.3 H Seg Neuts % (Manual) 77.0 H Lymphocytes % (Manual) 12.0 L Nucleated RBC % 2.0 H Lymphocytes # (Manual) 0.3 L PT 19.9 H INR 1.53 H APTT 89.3 H* D-Dimer 3584.01 H ABG pH ABG pO2 ABG HCO3 ABG O2 Saturation ABG Base Excess Potassium Chloride Carbon Dioxide BUN Creatinine Glucose POC Glucose Lactic Acid 12.40 H* Calcium AST ALT Lactate Dehydrogenase Total Creatine Kinase CK-MB (CK-2) CK-MB (CK-2) Rel Index Troponin T C-Reactive Protein NT-Pro-B Natriuret Pep Total Protein Albumin HDL Cholesterol TSH Salicylates Acetaminophen Crossmatch 02/15/21 02/15/21 02/15/21 13:04 13:04 13:04 WBC RBC Hgb Hct MCV MCH MCHC RDW Seg Neuts % (Manual) Lymphocytes % (Manual) Nucleated RBC % Lymphocytes # (Manual) PT INR APTT D-Dimer ABG pH ABG pO2 ABG HCO3 ABG O2 Saturation ABG Base Excess Potassium 9.7 H* Chloride 111.2 H Carbon Dioxide 13 L BUN 73 H Creatinine 6.5 H Glucose 20 L* POC Glucose Lactic Acid Calcium 12.0 H AST 605 H ALT 406 H Lactate Dehydrogenase 1369 H Total Creatine Kinase CK-MB (CK-2) CK-MB (CK-2) Rel Index Troponin T C-Reactive Protein 5.30 H NT-Pro-B Natriuret Pep 003021 H Total Protein 5.9 L Albumin 1.5 L HDL Cholesterol TSH Salicylates Acetaminophen Crossmatch See Detail 02/15/21 02/15/21 02/15/21 13:04 13:04 13:04 WBC RBC Hgb Hct MCV MCH MCHC RDW Seg Neuts % (Manual) Lymphocytes % (Manual) Nucleated RBC % Lymphocytes # (Manual) PT INR APTT D-Dimer ABG pH ABG pO2 ABG HCO3 ABG O2 Saturation ABG Base Excess Potassium Chloride Carbon Dioxide BUN Creatinine Glucose POC Glucose Lactic Acid Calcium AST ALT Lactate Dehydrogenase Total Creatine Kinase CK-MB (CK-2) CK-MB (CK-2) Rel Index Troponin T C-Reactive Protein NT-Pro-B Natriuret Pep Total Protein Albumin HDL Cholesterol TSH 7.000 H Salicylates < 0.3 L Acetaminophen 5.0 L Crossmatch 02/15/21 02/15/21 02/15/21 13:07 13:08 13:10 WBC RBC Hgb Hct MCV MCH MCHC RDW Seg Neuts % (Manual) Lymphocytes % (Manual) Nucleated RBC % Lymphocytes # (Manual) PT INR APTT D-Dimer ABG pH ABG pO2 ABG HCO3 ABG O2 Saturation ABG Base Excess Potassium Chloride Carbon Dioxide BUN Creatinine Glucose POC Glucose 11 L 13 L Lactic Acid Calcium AST ALT Lactate Dehydrogenase Total Creatine Kinase 462 H CK-MB (CK-2) 20.8 H CK-MB (CK-2) Rel Index 4.5 H Troponin T 0.554 H* C-Reactive Protein NT-Pro-B Natriuret Pep Total Protein Albumin HDL Cholesterol 27 L TSH Salicylates Acetaminophen Crossmatch 02/15/21 14:23 WBC RBC Hgb Hct MCV MCH MCHC RDW Seg Neuts % (Manual) Lymphocytes % (Manual) Nucleated RBC % Lymphocytes # (Manual) PT INR APTT D-Dimer ABG pH 6.845 L* ABG pO2 296.7 H ABG HCO3 12.4 L ABG O2 Saturation 99.3 H ABG Base Excess -18.6 L Potassium Chloride Carbon Dioxide BUN Creatinine Glucose POC Glucose Lactic Acid Calcium AST ALT Lactate Dehydrogenase Total Creatine Kinase CK-MB (CK-2) CK-MB (CK-2) Rel Index Troponin T C-Reactive Protein NT-Pro-B Natriuret Pep Total Protein Albumin HDL Cholesterol TSH Salicylates Acetaminophen Crossmatch
--- NOTE | 2021-02-15 16:24 | XRay Report ---
CHEST 1 VIEW 02/15/2021 3:53 PM INDICATION / CLINICAL INFORMATION: CVL placement confirmation. COMPARISON: Earlier today at 1:14 PM. FINDINGS: SUPPORT DEVICES: There is a new right jugular CVL with the tip overlying the mid SVC. The tip of the endotracheal tube is now 5.8 cm above the lidia. HEART / MEDIASTINUM: Enlargement of the cardiopericardial silhouette appears mildly improved. LUNGS / PLEURA: Extensive bilateral parenchymal opacities have not changed significantly. No pneumoth orax. ADDITIONAL FINDINGS: Mild gaseous distention of the stomach has increased. IMPRESSION: 1. Right jugular CVL placement without complication. 2. Mild gaseous distention of the stomach has increased. Signer Name: Herbie Zapata MD Signed: 02/15/2021 4:20 PM Workstation Name: [id number]
[2021-02-15 17:02] LABS: Hepatitis C Virus Antibody Non-Reactive (NonReactive)
[2021-02-15 17:13] LABS: Hepatitis B Surface Antigen Nonreactive (Negative)
[2021-02-15] MEDS ORDERED: HYDROmorphone 1 MG/1 ML INJ IV PRN (18:48)
[2021-02-15] MEDS ORDERED: ACETAMINOPHEN 325 MG TAB PO PRN (18:48)
[2021-02-15] MEDS ORDERED: ONDANSETRON 4 MG/2 ML INJ IV PRN (18:48)
[2021-02-15] MEDS ORDERED: MORPHINE 2 MG/1 ML INJ IV PRN (18:48)
[2021-02-15] MEDS ORDERED: SODIUM CHLORIDE 0.9% 1000 ML 1,000 ML IV SCH (19:00)
[2021-02-15 19:18] LABS: Mean Corpuscular HGB Conc 32 % (32-34); Mean Corpuscular Volume 79 fl (84-94); Platelet Count 156 K/mm3 (140-440); Red Blood Count 2.29 M/mm3 (3.65-5.03)
[2021-02-15 19:21] LABS: Hematocrit 18.1 % (35.5-45.6); Hemoglobin 5.7 gm/dl (11.8-15.2)
[2021-02-15 19:42] LABS: Calcium 8.3 mg/dL (8.4-10.2)
[2021-02-15 19:44] LABS: Creatine Kinase MB 54.3 ng/mL (0.0-4.0)
[2021-02-15] MEDS ORDERED: CEFEPIME/NS 1 GM/100 ML 1 GM/100 ML BAG IV SCH ×2 (20:00)
[2021-02-15 20:13] LABS: Band Neutrophils # (Manual) 0.8 K/mm3; Myelocytes # (Manual) 0.1 K/mm3; Total Cells Counted 100
[2021-02-15 20:14] LABS: Anisocytosis 1+; Hypochromasia 2+; Large Platelets Few
[2021-02-15 20:15] LABS: Poikilocytosis 1+; Spherocytes Few
[2021-02-15 20:16] LABS: Ovalocytes 1+; Platelet Estimate Consistent w Auto
--- NOTE | 2021-02-15 20:19 | Procedure Note ---
<QUAN ACOSTA - Last Filed: 02/15/21 20:13> Date of procedure: 02/15/21 Pre-op diagnosis: S/p Cardiac Arrest, Severe Hyperkalemia Post-op diagnosis: same Procedure: RIJ VasCath placement Patient was evaluated and required temporary VasCath placement for Hemodialysis due to severe Hyperkalemia This was an emergency procedure. Two physicians signature obtained A time-out was completed verifying correct patient, procedure, site, and positioning. Hand hygiene were performed immediately prior to the procedure and sterile technique was used throughout the procedure. The patients right neck was prepped with iodine and chlorhexidine scrub then draped in a sterile fa shion. 1% Lidocaine was used to anesthetize the surrounding skin area. Ultrasound was utilized to localize the right internal jugular vein without difficulty. Utilizing the Seldinger technique a seeker needle was then advanced ultrasound guidance into the right internal jugular vein. A guidewire was then advanced via the seeker needle into the right internal jugular vein and the seeker needle removed over the guidewire. A scalpel was used to incise the skin at the insertion site. A dilator was then passed over the guidewire into the right internal jugular vein without difficulty and subsequently removed over the guidewire. A preflushed triple-lumen catheter was then advanced to the right internal jugular vein. The catheter threaded smoothly over the guidewire and advanced easily into the vein and brisk blood return was observed from each lumen. Each lumen were flushed and clamped, then the catheter was sutured in place, a Biopatch was placed at the insertion site and covered with a sterile dressing. The patient tolerated the procedure well and no complications noted. Total Time Spent with Patient (Minutes): 40 minutes Anesthesia: local Surgeon: QUAN ACOSTA (Supervised by Dr. Calvo) Estimated blood loss: minimal Condition: stable Disposition: other (ED) <ANKITA CALVO - Last Filed: 02/16/21 14:42> Procedure: Patient placed in trendelenburg position during procedure
[2021-02-15] MEDS ORDERED: cefTRIAXone/NS 1 GM/50 ML 1 GM/50 ML BAG IV SCH (21:00)
[2021-02-15] MEDS ORDERED: DEXTROSE 5% IN WATER 1,000 ML with SODIUM BICARBONATE 150 MEQ IV SCH (21:00)
[2021-02-15] MEDS: NORepinephrine/NS 8 MG-250 ML 8 MG/250 ML INFUS..BTL IV SCH (21:10)
--- NOTE | 2021-02-15 21:51 | Consultation ---
History of Present Illness - Reason for Consult Consult date: 02/15/21 acute renal failure, hyperkalemia - History of Present Illness This is a 30-year-old man with no known medical history who presents with cardiac arrest (out of hospital), found to have PEA, EKG with tachycardia, QRS changes, and K 9.7. Did undergo aggressive ACLS measures in ED, lost pulses several times however Unable to obtain history due to illness, family not able to be reached Past History Past Medical History: other (unknwon) Past Surgical History: Other (unknown) Medications and Allergies Allergies Allergy/AdvReac Type Severity Reaction Status Date / Time Unable to Assess Allergy Verified 02/15/21 12:34 Active Meds: Active Medications Acetaminophen (Acetaminophen 325 Mg Tab) 650 mg PO Q4H PRN PRN Reason: Pain MILD(1-3)/Fever >100.5/AC Ascorbic Acid (Ascorbic Acid 500 Mg Tab) 500 mg PO BID BOY Dextrose (Dextrose 50% In Water (25gm) 50 Ml Syringe) 50 ml IV Q30MIN PRN; Protocol PRN Reason: Hypoglycemia Famotidine (Famotidine 20 Mg/2 Ml Inj) 20 mg IV BID BOY Fentanyl (Fentanyl 100 Mcg/2 Ml Inj) 50 mcg IV Q10MIN PRN PRN Reason: ANALGESIA Heparin Sodium (Porcine) (Heparin 5,000 Unit/1 Ml Vial) 5,000 unit SUB-Q Q12HR BOY Hydromorphone HCl (Hydromorphone 1 Mg/1 Ml Inj) 0.5 mg IV Q3H PRN PRN Reason: Pain , Severe (7-10) Hydrophilic Ointment (Lip Therapy Vaseline) 1 applic TP Q2HR PRN PRN Reason: Dry Lips Fentanyl Citrate (Fentanyl Drip Premix) 2,000 mcg in 100 mls @ 3.856 mls/hr IV TITR BOY; Protocol Pantoprazole Sodium 80 mg/ (Sodium Chloride) 100 mls @ 10 mls/hr IV DIRECT BOY Sodium Chloride (Nacl 0.9%) 100 mls @ 999 mls/hr IV RAFIQ PRN PRN Reason: Hypotension Propofol (Diprivan 10 Mg/Ml) 1,000 mg in 100 mls @ 2.313 mls/hr IV TITR OBY; Protocol Propofol (Diprivan 10 Mg/Ml) 1,000 mg in 100 mls @ 2.313 mls/hr IV TITR BOY; Protocol Sodium Chloride (Nacl 0.9% 1000 Ml) 1,000 mls @ 75 mls/hr IV DIRECT BOY NORepinephrine/NS 8 MG-250 ML (Norepinephrine/Ns 8 Mg-250 Ml (Double Conc)) 8 mg in 250 mls @ 3.75 mls/hr IV TITRATE BOY; Protocol Last Admin: 02/15/21 21:10 Dose: 30 mcg/min, 56.25 mls/hr Documented by: Azithromycin (Zithromax/Ns) 500 mg in 250 mls @ 250 mls/hr IV Q24H OBY Stop: 02/20/21 20:59 Ceftriaxone Sodium (Rocephin/Ns 1 Gm/50 Ml) 1 gm in 50 mls @ 100 mls/hr IV Q24H BOY; Protocol Stop: 02/19/21 21:29 Last Admin: 02/15/21 21:11 Dose: 100 mls/hr Documented by: Sodium Bicarbonate 150 meq/ (Dextrose) 1,150 mls @ 100 mls/hr IV DIRECT BOY Stop: 02/18/21 08:29 Methylprednisolone Sodium Succinate (Methylprednisolone Sod Succinate 40 Mg/1 Ml Inj) 40 mg IV Q8H BOY Morphine Sulfate (Morphine 2 Mg/1 Ml Inj) 2 mg IV Q4H PRN PRN Reason: Pain, Moderate (4-6) Multi-Ingred Cream/Lotion/Oil/Oint (Mineral Oil/Petrolatum, White Ophth Oint 3.5 Gm) 1 applic OU Q4HR PRN PRN Reason: Dry Eye(s) Ondansetron HCl (Ondansetron 4 Mg/2 Ml Inj) 4 mg IV Q8H PRN PRN Reason: Nausea And Vomiting Senna/Docusate Sodium (Sennosides/Docusate Sodium 8.6/50 Mg Tab) 1 tab FEEDTUBE BID BOY Sodium Chloride (Sodium Chloride 0.9% 10 Ml Flush Syringe) 10 ml IV BID BOY Sodium Chloride (Sodium Chloride 0.9% 10 Ml Flush Syringe) 10 ml IV PRN PRN PRN Reason: LINE FLUSH Zinc Sulfate (Zinc Sulfate 220 Mg Cap) 220 mg PO BID BOY Review of Systems ROS unobtainable: due to endotracheal tube, due to mental status Exam - Vital Signs Vital signs: Vital Signs Pulse Ox 100 02/15/21 12:28 - General Appearance General appearance: severe distress, sedated on ventilator, intubated EENT: ATNC Neck: Present: neck supple Respiratory: Decreased Breath Sounds Heart: tachycardia Gastrointestinal: Present: normoactive bowel sounds Integumentary: no rash Neurologic: other (sedated) Results - Lab Results 02/15/21 19:02 02/15/21 19:02 Most recent lab results ABG pH 7.044 (7.320-7.450) L 02/15/21 20:26 ABG pCO2 73.7 mm Hg 02/15/21 14:23 ABG pO2 296.7 mm Hg (80.0-90.0) H 02/15/21 14:23 ABG HCO3 12.4 mmol/L (20.0-26.0) L 02/15/21 14:23 ABG O2 Saturation 91.7 (0-100) 02/15/21 20:26 Calcium 8.3 mg/dL (8.4-10.2) L D 02/15/21 19:02 Assessment and Plan Impression: # Acute Kidney Injury: no prior baseline # Hyperkalemia: severe to 9.7 on admission # Metabolic Acidosis, Lactic Acidosis # Transaminitis/Shock Liver? # Severe Anemia # Hypoalbuminemia # Cardiac Arrest # Hypotension Plan: - STAT HD today for severe hyperkalemia with cardiac arrest, discussed with on- call HD nurse. Appreciate stat vascath placement per ICU team - next HD prn pending labs, clinical course, likely will need again tomorrow - once more stable, check urinalysis, renal ultrasound, serologies to help determine cause of ZAC. Tox screen negative so far - maintain MAP>70 - avoid nephrotoxins - renally dose meds - transfuse PRBCs prn for goal >7
[2021-02-15] MEDS ORDERED: FAMOTIDINE 20 MG/2 ML INJ IV SCH (22:00)
[2021-02-15 22:01] LABS: Amphetamine Screen,Urine Negative; Bacteria,Urine 4+ /HPF (Negative); Benzodiazepines Screen,Urine Negative; Bilirubin,Urine NEG (Negative); Blood,Urine LG (Negative); Cocaine Screen,Urine Negative; Color,Urine Red (Yellow); Hyaline Casts,Urine 133 /LPF; Methadone Screen,Urine Negative; Mucus,Urine 1+ /HPF; Opiate Screen,Urine Negative; Sperm,Urine 2+ /HPF (NP); Urobilinogen,Urine < 2.0 mg/dL (<2.0)
[2021-02-15 22:02] LABS: Protein,Urine >500 mg/dL (Negative); RBC,Urine > 182.0 /HPF (0.0-6.0)
[2021-02-15 22:13] LABS: Cannabinoid Screen,Urine Positive
[2021-02-15] MEDS: methylPREDNISolone Sod Succinate 40 MG/1 ML INJ IV SCH (22:18)
[2021-02-15] MEDS: HEPARIN 5,000 UNIT/1 ML VIAL SUB-Q SCH (22:18)
[2021-02-15] MEDS: AZITHROMYCIN/NS 500 MG/250 ML 500 MG/250 ML BAG IV SCH (22:19)
[2021-02-15] MEDS: SENNOSIDES/DOCUSATE SODIUM 8.6/50 MG TAB FEEDTUBE SCH (22:20)
[2021-02-15] MEDS: ZINC SULFATE 220 MG CAP PO SCH (22:39)
[2021-02-15] MEDS: ASCORBIC ACID 500 MG TAB PO SCH (22:39)
[2021-02-15 23:52] LABS: Calcium 7.6 mg/dL (8.4-10.2)
[2021-02-15 23:55] LABS: Mean Corpuscular HGB Conc 31 % (32-34); Mean Corpuscular Volume 80 fl (84-94); Platelet Count 147 K/mm3 (140-440); Red Blood Count 2.31 M/mm3 (3.65-5.03)
[2021-02-16 00:10] LABS: Hematocrit 18.5 % (35.5-45.6); Hemoglobin 5.8 gm/dl (11.8-15.2); Red Cell Distribution Width 21.1 % (13.2-15.2)
[2021-02-16] MEDS ORDERED: SODIUM CHLORIDE 0.9% 500 ML 500 ML IV ONE (00:56)
[2021-02-16 00:57] LABS: Band Neutrophils # (Manual) 0.4 K/mm3; Myelocytes # (Manual) 0.4 K/mm3; Total Cells Counted 100
[2021-02-16 00:58] LABS: Anisocytosis 1+; Giant Platelets Rare; Hypochromasia 2+; Large Platelets Few; Ovalocytes 1+; Platelet Estimate Consistent w Auto; Poikilocytosis 1+; Spherocytes Few
--- NOTE | 2021-02-16 01:16 | XRay Report ---
ABDOMEN 1 VIEW(S) INDICATION / CLINICAL INFORMATION: OGT placement verification. COMPARISON: None available. FINDINGS: TUBES / LINES: Esophagogastric tube tip and side-port are in the proximal stomach. BOWEL GAS PATTERN: There is diffuse small bowel dilatation. FREE AIR / EXTRALUMINAL GAS: None seen. ADDITIONAL FINDINGS: No significant additional findings. IMPRESSION: 1. Esophagogastric tube in satisfactory position. 2. Diffuse small bowel dilatation with paucity of colonic gas concerning for small bowel obstruction. Signer Name: Jewel Pereira MD Signed: 02/16/2021 1:12 AM Workstation Name: [email or web address]
[2021-02-16] MEDS: NORepinephrine/NS 8 MG-250 ML 8 MG/250 ML INFUS..BTL IV SCH (01:39)
--- NOTE | 2021-02-16 01:54 | Consultation ---
DATE OF CONSULTATION: 02/15/2021 PULMONARY CRITICAL CARE CONSULTATION NOTE CONSULTING PHYSICIAN: Dr. Berlin Schneider. REASON FOR CONSULTATION: Acute hypoxemic respiratory failure, on mechanical ventilatory support, assistance with Vascath placement. CHIEF COMPLAINT AND HISTORY OF PRESENTING ILLNESS: As follows: The patient is a now 30-year-old male, past medical history unknown, brought in [facility] after suffering nontraumatic [id number] cardiac arrest. He was brought in with a Kushal Airway in place. He had received CPR en route. His GCS was 3 at the time of presentation. Nobody was there to give any other history. Reportedly, EMS received a call for an unresponsive patient revealed the patient at that time was down about 10 minutes prior to the arrival. The family did not start CPR in the field. He was found pulseless, dilated pupils. It is unclear if he was hypoglycemic. In the Emergency Room, his pupils were midpoint, did not react to light. He had copious oral secretions, was found to be in PEA. Multiple rounds of CPR and resuscitative efforts were done. A quick look at the cardia with a faster echocardiogram showed possible clot formation in the right atrium and right ventricle. He had left ventricular hypokinesis and right ventricular dyskinesis. Ultimately, after multiple rounds of CPR, they were able to get him down. He was found to have a serum potassium severely elevated and he required emergent dialysis. Hence, my call. When I stopped by to see him, he was resting in bed, on the mechanical ventilator. At the time I saw him, he was on the assist control, tidal volume was set at 450, rate was 12, PEEP was 8 on 100% FiO2. I do not have a history of emesis or overt aspiration, although I cannot rule that out. No reported seizure activity. The patient's tobacco use/abuse history is unknown. The above is as much of the history of presentation as I have. PAST MEDICAL HISTORY: Unknown. PAST SURGICAL HISTORY: Unknown. MEDICATIONS: He was on at the time I stopped by to see him according to the medication administration record included the following: He was on Pepcid 20 mg IV b.i.d., fentanyl. I just ordered a propofol and a fentanyl drip and it was not yet running. Levophed drip was going I believe at 4 mcg per minute. Protonix drip, I believe was going at 8 mg per hour. Senna/docusate 1 tablet p.o. b.i.d. ALLERGIES: Unknown. DIET: Well-built gentleman, acute weight loss or gain history is unknown. FAMILY AND SOCIAL HISTORY: He was brought in from the community; however, alcohol, tobacco, or illicit drug use or abuse history unknown. Family history is unknown. REVIEW OF SYSTEMS: Unobtainable secondary to the patient's medical and mental condition. Since he has been here, no gross hematochezia or melena, no gross hematuria, no hematemesis, no hemoptysis, no bloody tracheal secretions. Review of systems otherwise unobtainable or as in the body of history above. PHYSICAL EXAMINATION: VITAL SIGNS: On presentation, he was hypothermic, temperature 97.1 degrees Fahrenheit rectally, pulse was 66, respiratory rate 14, blood pressure 85/45 at arrival, O2 sats were 100% I believe on the mechanical ventilator on the above-mentioned settings. When I stopped by to see him, he was resting in bed. GENERAL: Young male. Normocephalic, atraumatic, on the mechanical ventilator without significant patient ventilator dyssynchrony. HEAD, EYES, EARS, NOSE, AND THROAT: Anicteric. No conjunctival erythema. Oropharynx was moist. Endotracheal tube was taped at the lips around 24 cm. NECK: No gross jugular venous distention. No thyromegaly. Grossly, there were no palpable lymph nodes in the supraclavicular or submandibular lymph node chains. LUNGS: Auscultation of both lung dickens significant for bilateral rhonchi. No active wheezing. HEART: Sounds 1 and 2 are heard at the time of my evaluation. Regular rate and rhythm without overt rubs or murmurs. ABDOMEN: Soft, flat. Bowel sounds are positive. Nontender. No palpable hepatosplenomegaly. EXTREMITIES: Without overt digital clubbing or cyanosis. He had 2+ bipedal pitting edema. Pedal pulses were 2+ bilaterally. NEUROLOGIC: Pupils were equal, round, about 5 mm, reactive to light sluggishly. Extraocular muscle movements could not be assessed. He did not have any spontaneous movements to his extremities. SKIN: Normal turgor without overt cellulitis or rash in the areas I evaluated. Please see the wound care nurses' notes for full description of his skin. PSYCHIATRIC: Mood and affect could not be assessed. He was obtunded essentially. LABORATORY DATA: From my review are as follows: Admission white cell count was 2300 with a hemoglobin of 3.5, hematocrit of 11.8, and a platelet count of 169. No band forms on the manual differential. D-dimer was 3584. INR 1.53. Arterial blood gas showed a pH of 6.85, pCO2 of 74, pO2 of 297, that was on 100% FiO2. Serum sodium was 140, potassium 5.5, chloride 106, bicarbonate 16, BUN 46, creatinine 4.5, glucose was 117. Lactic acid level was 12.4. Ferritin within normal limits. AST was up at 605, ALT 406. Troponin 0.554. BNP 138,338. Albumin was low at 1.5. LDL cholesterol within normal limits. TSH was significantly elevated at 7.0. Aspirin, Tylenol, alcohol levels were not detected. Hepatitis screen is negative. His troponin has gone up to 1.15. His lactic acid is down to 5.90. Two sets of blood cultures are no growth to date. Chest x-ray at presentation shows the ET tube in good position, massive globular heart, bilateral pulmonary infiltrates, trace to no pleural effusions. Repeat chest x-ray post right Vascath placement essentially shows some progression of those with developing consolidation in the right upper lobe, definitely suspicious for possible aspiration in the supine position. ASSESSMENT: 1. Acute hypoxemic respiratory failure, on mechanical ventilatory support. 2. Cardiac arrest with return of spontaneous circulation. 3. Bilateral pneumonia. 4. Person under investigation for COVID-19 infection. 5. Acute kidney injury. 6. Severe hyperkalemia reported to me as 9.0. 7. Severe anemia that is microcytic. 8. Possible hypothyroidism. 9. Severe metabolic acidosis. 10. Oropharyngeal dysphagia. 11. Elevated serum transaminases, possible shock liver. 12. Elevated serum troponin post-cardiac resuscitation. PLAN: He will remain on the mechanical ventilator. His rate has been bumped up to hyperventilate in the short time. We will be repeating arterial blood gas tonight and make changes from that point. Oxygen will be weaned to keep sats greater than or equal to about 90%. Aspiration precautions will be maintained. Coronavirus test will be ordered. He will be placed empirically on airborne and contact precautions. I will empirically treat him with systemic steroids, vitamin C, zinc. In terms of anticoagulation, we will get bilateral lower extremity Dopplers. With the non-STEMI, he might have benefited from IV heparin; however, with his thrombocytopenia and anemia, we will hold on that but again, he will ultimately need an endocrine workup wondering if this is thyrotoxicosis-related cardiomyopathy. Otherwise, he will be empirically placed on community-acquired pneumonia therapy with Rocephin and Zithromax. I think he is on Pepcid for GI prophylaxis. Enteral nutrition will be the feeding modality of choice. Nephrology has been consulted and is going to begin dialysis. Adjustments have been made to increase the PEEP as well. He will be placed on a warming blanket. Flu and pneumonia vaccination will be addressed per protocol. Inputs and outputs will be monitored closely. Thank you very much for the consult. We will follow along and make further recommendations as picture progresses/becomes clearer. He is critically ill at very high risk of from cardiopulmonary system decompensation as well as renal system. At this time, I spent about 35-40 minutes of critical care time without overlap and excluding any procedural time that may be necessary. Neurology evaluation will also be of benefit. I will order a CT scan of his brain acutely. TID: [id number] RECEIPT: [id number] OSMAR/NAVEED
--- NOTE | 2021-02-16 06:18 | XRay Report ---
CHEST 1 VIEW INDICATION: follow up respiratory failure. COMPARISON: One day prior. FINDINGS: Support devices: Satisfactory position. Heart: Stable. Lungs/Pleura: Bilateral pulmonary opacities are stable. No pneumothorax. IMPRESSION: 1. No significant change. Signer Name: Jewel Pereira MD Signed: 02/16/2021 6:13 AM Workstation Name: [id number]
[2021-02-16] MEDS: methylPREDNISolone Sod Succinate 40 MG/1 ML INJ IV SCH ×3 (06:31→22:55)
--- NOTE | 2021-02-16 07:11 | History and Physical Report ---
History of Present Illness Date of examination: 02/15/21 Date of admission: 02/15/21 14:24 Chief complaint: Unresponsive at home for 10 minutes History of present illness: 30-year-old -[place] male with unknown medical history was found unresponsive at home. EMS was called and the downtime was approximately 10 minutes. On EMS arrival the patient was pulseless with dilated pupils. ACLS protocol was initiated and patient was intubated with Kushal's airway. Patient's initial rhythm was pulseless electrical activity. ACLS was continued during the arrival in the emergency room. In the emergency room patient was intubated emergently by the ER physician-Dr. Mathew. Not much history is available. In the emergency room emergent transthoracic echocardiogram was performed which demonstrated pericardial effusion and a possible clot in the right atrium and right ventricle. Also LV hypokinesis and right ventricular dyskinesis. As per the ER physician patient had a high potassium level. Neurology consistent with severe renal failure and severe anemia with hemoglobin of 3.5 etiology is very unclear. No bleeding episodes. No fever or chills. The present fingers patient has a longstanding chronic kidney disease resulting in anemia and not seeking medical attention. Emergency room course patient received multiple rounds of epinephrine calcium and sodium bicarbonate. Low blood glucose of 20. Vasopressors were started a central line was initiated after prolonged resuscitation spontaneous circulation was obtained. Patient has a GCS of 3. Patient is also hypothermic Past History Past Medical History: other (unknwon) Past Surgical History: Other (unknown) Social history: lives with family, full code Family history: hypertension Medications and Allergies Allergies Allergy/AdvReac Type Severity Reaction Status Date / Time Unable to Assess Allergy Verified 02/15/21 12:34 Active Meds: Active Medications Acetaminophen (Acetaminophen 325 Mg Tab) 650 mg PO Q4H PRN PRN Reason: Pain MILD(1-3)/Fever >100.5/AC Ascorbic Acid (Ascorbic Acid 500 Mg Tab) 500 mg PO BID [facility] Last Admin: 02/15/21 22:39 Dose: 500 mg Documented by: Dextrose (Dextrose 50% In Water (25gm) 50 Ml Syringe) 50 ml IV Q30MIN PRN; Protocol PRN Reason: Hypoglycemia Famotidine (Famotidine 20 Mg/2 Ml Inj) 20 mg IV BID [facility] Last Admin: 02/15/21 22:18 Dose: 20 mg Documented by: Fentanyl (Fentanyl 100 Mcg/2 Ml Inj) 50 mcg IV Q10MIN PRN PRN Reason: ANALGESIA Heparin Sodium (Porcine) (Heparin 5,000 Unit/1 Ml Vial) 5,000 unit SUB-Q Q12HR BOY Last Admin: 02/15/21 22:18 Dose: 5,000 unit Documented by: Hydromorphone HCl (Hydromorphone 1 Mg/1 Ml Inj) 0.5 mg IV Q3H PRN PRN Reason: Pain , Severe (7-10) Hydrophilic Ointment (Lip Therapy Vaseline) 1 applic TP Q2HR PRN PRN Reason: Dry Lips Fentanyl Citrate (Fentanyl Drip Premix) 2,000 mcg in 100 mls @ 3.856 mls/hr IV TITR BOY; Protocol Pantoprazole Sodium 80 mg/ (Sodium Chloride) 100 mls @ 10 mls/hr IV DIRECT BOY Sodium Chloride (Nacl 0.9%) 100 mls @ 999 mls/hr IV RAFIQ PRN PRN Reason: Hypotension Propofol (Diprivan 10 Mg/Ml) 1,000 mg in 100 mls @ 2.313 mls/hr IV TITR BOY; Protocol Propofol (Diprivan 10 Mg/Ml) 1,000 mg in 100 mls @ 2.313 mls/hr IV TITR BOY; Protocol Sodium Chloride (Nacl 0.9% 1000 Ml) 1,000 mls @ 75 mls/hr IV DIRECT BOY NORepinephrine/NS 8 MG-250 ML (Norepinephrine/Ns 8 Mg-250 Ml (Double Conc)) 8 mg in 250 mls @ 3.75 mls/hr IV TITRATE BOY; Protocol Last Titration: 02/16/21 06:53 Dose: 6 mcg/min, 11.25 mls/hr Documented by: Azithromycin (Zithromax/Ns) 500 mg in 250 mls @ 250 mls/hr IV Q24H BOY Stop: 02/20/21 20:59 Last Admin: 02/15/21 22:19 Dose: 250 mls/hr Documented by: Ceftriaxone Sodium (Rocephin/Ns 1 Gm/50 Ml) 1 gm in 50 mls @ 100 mls/hr IV Q24H BOY; Protocol Stop: 02/19/21 21:29 Last Admin: 02/15/21 21:11 Dose: 100 mls/hr Documented by: Sodium Bicarbonate 150 meq/ (Dextrose) 1,150 mls @ 100 mls/hr IV DIRECT [facility] Stop: 02/18/21 08:29 Last Admin: 02/15/21 23:03 Dose: 100 mls/hr Documented by: Methylprednisolone Sodium Succinate (Methylprednisolone Sod Succinate 40 Mg/1 Ml Inj) 40 mg IV Q8H [facility] Last Admin: 02/16/21 06:31 Dose: 40 mg Documented by: Morphine Sulfate (Morphine 2 Mg/1 Ml Inj) 2 mg IV Q4H PRN PRN Reason: Pain, Moderate (4-6) Multi-Ingred Cream/Lotion/Oil/Oint (Mineral Oil/Petrolatum, White Ophth Oint 3.5 Gm) 1 applic OU Q4HR PRN PRN Reason: Dry Eye(s) Ondansetron HCl (Ondansetron 4 Mg/2 Ml Inj) 4 mg IV Q8H PRN PRN Reason: Nausea And Vomiting Senna/Docusate Sodium (Sennosides/Docusate Sodium 8.6/50 Mg Tab) 1 tab FEEDTUBE BID [facility] Last Admin: 02/15/21 22:20 Dose: Not Given Documented by: Sodium Chloride (Sodium Chloride 0.9% 10 Ml Flush Syringe) 10 ml IV BID [facility] Last Admin: 02/15/21 22:20 Dose: 10 ml Documented by: Sodium Chloride (Sodium Chloride 0.9% 10 Ml Flush Syringe) 10 ml IV PRN PRN PRN Reason: LINE FLUSH Zinc Sulfate (Zinc Sulfate 220 Mg Cap) 220 mg PO BID [facility] Last Admin: 02/15/21 22:39 Dose: 220 mg Documented by: Review of Systems ROS unobtainable: due to endotracheal tube, due to mental status All systems: negative Exam - Physical Exam Narrative exam: Patient is unresponsive and intubated. - Constitutional Vitals: Temp Pulse Resp BP Pulse Ox 97.7 F 94 H 19 137/92 100 02/16/21 03:08 02/16/21 04:00 02/15/21 18:34 02/16/21 04:00 02/16/21 04:00 General appearance: Present: severe distress, cachectic, disheveled - EENT Eyes: Present: miosis ENT: hearing intact - Neck Neck: Present: supple, normal ROM - Respiratory Respiratory effort: normal Respiratory: bilateral: CTA - Cardiovascular Heart rate: 99 Rhythm: regular Heart Sounds: Present: S1 & S2. Absent: rub, click - Extremities Extremities: no ischemia, pulses intact, pulses symmetrical, No edema Peripheral Pulses: within normal limits - Abdominal General gastrointestinal: Present: soft, non-tender, non-distended, normal bowel sounds Male genitourinary: Present: normal - Rectal Rectal Exam: deferred - Integumentary Integumentary: Present: clear, warm, dry - Musculoskeletal Musculoskeletal: generalized weakness - Psychiatric Psychiatric: other (Unresponsive) - Neurologic Neurologic: other (Unresponsive) - Allied Health Allied health notes reviewed: nursing, case management HEART Score - HEART Score History: Moderately suspicious Age: < 45 Risk factors: No known risk factors Troponin: Troponin T 1.150 ng/mL (0.00-0.029) H* 02/15/21 19:02 - Critical Actions Critical Actions: >7 pts:50-65% risk of adverse cardiac event. Early invasive measures Results - Labs CBC & Chem 7: 02/15/21 23:23 02/15/21 23:23 Labs: Laboratory Last Values WBC 5.4 K/mm3 (4.5-11.0) 02/15/21 23:23 RBC 2.31 M/mm3 (3.65-5.03) L 02/15/21 23:23 Hgb 5.8 gm/dl (11.8-15.2) L* 02/15/21 23:23 Hct 18.5 % (35.5-45.6) L* 02/15/21 23:23 MCV 80 fl (84-94) L 02/15/21 23:23 MCH 25 pg (28-32) L 02/15/21 23:23 MCHC 31 % (32-34) L 02/15/21 23:23 RDW 21.1 % (13.2-15.2) H 02/15/21 23:23 Plt Count 147 K/mm3 (140-440) 02/15/21 23:23 Add Manual Diff Complete 02/15/21 23:23 Total Counted 100 02/15/21 23:23 Seg Neutrophils % Painter Interior Finish 02/15/21 23:23 Seg Neuts % (Manual) 82.0 % (40.0-70.0) H 02/15/21 23:23 Band Neutrophils % 7.0 % 02/15/21 23:23 Lymphocytes % (Manual) 1.0 % (13.4-35.0) L 02/15/21 23:23 Reactive Lymphs % (Man) 1.0 % 02/15/21 13:04 Monocytes % (Manual) 1.0 % (0.0-7.3) 02/15/21 23:23 Metamyelocytes % 1.0 % 02/15/21 23:23 Myelocytes % 8.0 % 02/15/21 23:23 Nucleated RBC % 8.0 % (0.0-0.9) H 02/15/21 23:23 Seg Neutrophils # Man 4.4 K/mm3 (1.8-7.7) 02/15/21 23:23 Band Neutrophils # 0.4 K/mm3 02/15/21 23:23 Lymphocytes # (Manual) 0.1 K/mm3 (1.2-5.4) L 02/15/21 23:23 Abs React Lymphs (Man) 0.0 K/mm3 02/15/21 23:23 Monocytes # (Manual) 0.1 K/mm3 (0.0-0.8) 02/15/21 23:23 Eosinophils # (Manual) 0.0 K/mm3 (0.0-0.4) 02/15/21 23:23 Basophils # (Manual) 0.0 K/mm3 (0.0-0.1) 02/15/21 23:23 Metamyelocytes # 0.1 K/mm3 02/15/21 23:23 Myelocytes # 0.4 K/mm3 02/15/21 23:23 Promyelocytes # 0.0 K/mm3 02/15/21 23:23 Blast Cells # 0.0 K/mm3 02/15/21 23:23 WBC Morphology Not Reportable 02/15/21 23:23 Hypersegmented Neuts Not Reportable 02/15/21 23:23 Hyposegmented Neuts Not Reportable 02/15/21 23:23 Hypogranular Neuts Not Reportable 02/15/21 23:23 Smudge Cells Not Reportable 02/15/21 23:23 Toxic Granulation Not Reportable 02/15/21 23:23 Toxic Vacuolation Not Reportable 02/15/21 23:23 Dohle Bodies Not Reportable 02/15/21 23:23 Pelger-Huet Anomaly Not Reportable 02/15/21 23:23 Jennifer Rods Not Reportable 02/15/21 23:23 Platelet Estimate Consistent w auto 02/15/21 23:23 Clumped Platelets Not Reportable 02/15/21 23:23 Plt Clumps, EDTA Not Reportable 02/15/21 23:23 Large Platelets Few 02/15/21 23:23 Giant Platelets Rare 02/15/21 23:23 Platelet Satelliting Not Reportable 02/15/21 23:23 Plt Morphology Comment Not Reportable 02/15/21 23:23 RBC Morphology Not Reportable 02/15/21 23:23 Dimorphic RBCs Not Reportable 02/15/21 23:23 Polychromasia Not Reportable 02/15/21 23:23 Hypochromasia 2+ 02/15/21 23:23 Poikilocytosis 1+ 02/15/21 23:23 Anisocytosis 1+ 02/15/21 23:23 Microcytosis 1+ 02/15/21 23:23 Macrocytosis Not Reportable 02/15/21 23:23 Spherocytes Few 02/15/21 23:23 Pappenheimer Bodies Not Reportable 02/15/21 23:23 Sickle Cells Not Reportable 02/15/21 23:23 Target Cells Not Reportable 02/15/21 23:23 Tear Drop Cells Not Reportable 02/15/21 23:23 Ovalocytes 1+ 02/15/21 23:23 Helmet Cells Not Reportable 02/15/21 23:23 [place] Bodies Not Reportable 02/15/21 23:23 [place] Rings Not Reportable 02/15/21 23:23 Sree Cells Not Reportable 02/15/21 23:23 Bite Cells Not Reportable 02/15/21 23:23 Crenated Cell Not Reportable 02/15/21 23:23 Elliptocytes 1+ 02/15/21 23:23 Acanthocytes (Spur) Not Reportable 02/15/21 23:23 Rouleaux Not Reportable 02/15/21 23:23 Hemoglobin C Crystals Not Reportable 02/15/21 23:23 Schistocytes Not Reportable 02/15/21 23:23 Malaria parasites Not Reportable 02/15/21 23:23 Den Bodies Not Reportable 02/15/21 23:23 Hem Pathologist Commnt No 02/15/21 23:23 PT 19.9 Sec. (12.2-14.9) H 02/15/21 13:04 INR 1.53 (0.87-1.13) H 02/15/21 13:04 APTT 89.3 Sec. (24.2-36.6) H* 02/15/21 13:04 D-Dimer 3584.01 ng/mlDDU (0-234) H 02/15/21 13:04 ABG pH 7.044 (7.320-7.450) L 02/15/21 20:26 POC ABG pCO2 65.8 mmHg (32.0-48.0) H 02/15/21 20: ABG pCO2 73.7 mm Hg 02/15/21 14:23 POC ABG pO2 88.5 mmHg (83-108) 02/15/21 20: ABG pO2 296.7 mm Hg (80.0-90.0) H 02/15/21 14:23 POC ABG HCO3 17.6 02/15/21 20: ABG HCO3 12.4 mmol/L (20.0-26.0) L 02/15/21 14:23 ABG O2 Saturation 91.7 (0-100) 02/15/21 20: ABG O2 Content 5.9 (0.0-44) 02/15/21 14:23 POC ABG Base Excess -11.9 02/15/21 20: ABG Base Excess -18.6 mmol/L (-2.0-3.0) L 02/15/21 14:23 ABG Hemoglobin 6.0 (12.0-17.5) L 02/15/21 20:26 ABG Oxyhemoglobin 91.1 (94-98) L 02/15/21 20: ABG Carboxyhemoglobin 1.8 % (0.0-5.0) 02/15/21 14:23 ABG Methemoglobin 0.3 (0.0-1.5) 02/15/21 20:26 ABG Sodium 135.9 mmol/L (136.0-145.0) L 02/15/21 20: ABG Potassium 5.0 mmol/L (3.40-4.50) H 02/15/21 20:26 ABG Chloride 108.0 mmol/L (98-107) H 02/15/21 20:26 ABG Glucose 106 mg/dL (65-95) H 02/15/21 20:26 Oxyhemoglobin 97.0 % (95.0-99.0) 02/15/21 14:23 Carboxyhemoglobin 0.4 (0.5-1.5) L 02/15/21 20:26 FiO2 100 % 02/15/21 14:23 FiO2 % 70.0 02/15/21 20:26 Sodium 140 mmol/L (137-145) 02/15/21 23:23 Potassium 5.4 mmol/L (3.6-5.0) H 02/15/21 23:23 Chloride 107.7 mmol/L (98-107) H 02/15/21 23:23 Carbon Dioxide 15 mmol/L (22-30) L 02/15/21 23:23 Anion Gap 23 mmol/L 02/15/21 23:23 BUN 52 mg/dL (9-20) H 02/15/21 23:23 Creatinine 4.8 mg/dL (0.8-1.3) H 02/15/21 23:23 Estimated GFR 18 ml/min 02/15/21 23:23 BUN/Creatinine Ratio 11 % 02/15/21 23:23 Glucose 87 mg/dL (75-100) 02/15/21 23:23 POC Glucose 71 mg/dL (70-105) 02/15/21 15:08 Lactic Acid 5.60 mmol/L (0.7-2.0) H* 02/15/21 23:23 Calcium 7.6 mg/dL (8.4-10.2) L 02/15/21 23:23 Phosphorus 9.60 mg/dL (2.5-4.5) H 02/15/21 23:23 Magnesium 1.80 mg/dL (1.7-2.3) 02/15/21 23:23 Ferritin 388.1 ng/mL (30.0-300.0) H 02/15/21 23:23 Total Bilirubin 0.20 mg/dL (0.1-1.2) 02/15/21 13:04 AST 605 units/L (5-40) H 02/15/21 13:04 ALT 406 units/L (7-56) H 02/15/21 13:04 Alkaline Phosphatase 85 units/L (35-129) 02/15/21 13:04 Lactate Dehydrogenase Cancelled 02/15/21 13:10 Total Creatine Kinase 2992 units/L (55-170) H 02/15/21 19:02 CK-MB (CK-2) 54.3 ng/mL (0.0-4.0) H 02/15/21 19:02 CK-MB (CK-2) Rel Index 1.8 (0-4) 02/15/21 19:02 Troponin T 1.150 ng/mL (0.00-0.029) H* 02/15/21 19:02 C-Reactive Protein 6.80 mg/dL (0.00-1.30) H 02/15/21 23:23 NT-Pro-B Natriuret Pep 739477 pg/mL (0-450) H 02/15/21 13:04 Total Protein 5.9 g/dL (6.3-8.2) L 02/15/21 13:04 Albumin 1.5 g/dL (3.9-5) L 02/15/21 13:04 Albumin/Globulin Ratio 0.3 % 02/15/21 13:04 Triglycerides 62 mg/dL (2-149) 02/15/21 13:10 Cholesterol 82 mg/dL (50-199) 02/15/21 13:10 LDL Cholesterol Direct 50 mg/dL (50-130) 02/15/21 13:10 HDL Cholesterol 27 mg/dL (40-59) L 02/15/21 13:10 Cholesterol/HDL Ratio 3.03 % 02/15/21 13:10 Procalcitonin 3.21 ng/mL (<0.15) 02/15/21 13:04 TSH 7.000 mlU/mL (0.270-4.200) H 02/15/21 13:04 Free T4 0.80 ng/dL (0.76-1.46) 02/15/21 13:04 Arterial Blood Glucose 106 mg/dL (65-95) H 02/15/21 20:26 Urine Color Red (Yellow) 02/15/21 17:30 Urine Turbidity Turbid (Clear) 02/15/21 17:30 Urine pH 5.0 (5.0-7.0) 02/15/21 17:30 Ur Specific [place] 1.013 (1.003-1.030) 02/15/21 17:30 Urine Protein >500 mg/dL (Negative) 02/15/21 17:30 Urine Glucose (UA) Neg mg/dL (Negative) 02/15/21 17:30 Urine Ketones Neg mg/dL (Negative) 02/15/21 17:30 Urine Blood Lg (Negative) 02/15/21 17:30 Urine Nitrite Neg (Negative) 02/15/21 17:30 Urine Bilirubin Neg (Negative) 02/15/21 17:30 Urine Urobilinogen < 2.0 mg/dL (<2.0) 02/15/21 17:30 Ur Leukocyte Esterase Neg (Negative) 02/15/21 17:30 Urine WBC (Auto) 55.0 /HPF (0.0-6.0) H 02/15/21 17:30 Urine RBC (Auto) > 182.0 /HPF (0.0-6.0) 02/15/21 17:30 U Epithel Cells (Auto) 4.0 /HPF (0-13.0) 02/15/21 17:30 Urine Bacteria (Auto) 4+ /HPF (Negative) 02/15/21 17:30 Hyaline Casts 133 /LPF 02/15/21 17:30 Urine Mucus 1+ /HPF 02/15/21 17:30 Urine Yeast (Budding) 2+ /HPF 02/15/21 17:30 Urine Sperm 2+ /HPF (SAMPLE PULLER) 02/15/21 17:30 Salicylates < 0.3 mg/dL (2.8-20.0) L 02/15/21 13:04 Urine Opiates Screen Negative 02/15/21 17:30 Urine Methadone Screen Negative 02/15/21 17:30 Acetaminophen 5.0 ug/mL (10.0-30.0) L 02/15/21 13:04 Ur Barbiturates Screen Negative 02/15/21 17:30 Ur Phencyclidine Scrn Negative 02/15/21 17:30 Ur Amphetamines Screen Negative 02/15/21 17:30 U Benzodiazepines Scrn Negative 02/15/21 17:30 Urine Cocaine Screen Negative 02/15/21 17:30 U Marijuana (THC) Screen Positive 02/15/21 17:30 Drugs of Abuse Note Disclamer 02/15/21 17:30 Plasma/Serum Alcohol < 0.01 % (0-0.07) 02/15/21 13:04 Hepatitis A IgM Ab Non-reactive (NonReactive) 02/15/21 16:10 Hep Bs Antigen Nonreactive (Negative) 02/15/21 16:10 Hep B Core IgM Ab Non-reactive (NonReactive) 02/15/21 16:10 Hepatitis C Antibody Non-reactive (NonReactive) 02/15/21 16:10 Blood Type O POSITIVE 02/15/21 13:04 Antibody Screen Negative 02/15/21 13:04 Crossmatch See Detail 02/15/21 13:04 Short CBC 02/15/21 02/15/21 02/15/21 Range/Units 13:04 19:02 23:23 WBC 2.3 L 5.1 5.4 (4.5-11.0) K/mm3 Hgb 3.5 L* 5.7 L* 5.8 L* (11.8-15.2) gm/dl Hct 11.8 L* 18.1 L* D 18.5 L* (35.5-45.6) % Plt Count 169 156 147 (140-440) K/mm3 BMP 02/15/21 02/15/21 02/15/21 13:04 13:10 19:02 Sodium 142 Cancelled 140 Potassium 9.7 H* Cancelled 5.5 H D Chloride 111.2 H Cancelled 106.3 Carbon Dioxide 13 L Cancelled 16 L BUN 73 H Cancelled 46 H Creatinine 6.5 H Cancelled 4.5 H Glucose 20 L* Cancelled 117 H Calcium 12.0 H Cancelled 8.3 L D 02/15/21 23:23 Sodium 140 Potassium 5.4 H Chloride 107.7 H Carbon Dioxide 15 L BUN 52 H Creatinine 4.8 H Glucose 87 Calcium 7.6 L Cardiac Enzymes 02/15/21 02/15/21 02/15/21 Range/Units 13:10 16:10 19:02 Total Creatine Kinase 462 H 2102 H 2992 H (55-170) units/L CK-MB (CK-2) 20.8 H 50.0 H 54.3 H (0.0-4.0) ng/mL Troponin T 0.554 H* 1.290 H* D 1.150 H* (0.00-0.029) ng/mL Liver Function 02/15/21 Range/Units 13:04 Total Bilirubin 0.20 (0.1-1.2) mg/dL AST 605 H (5-40) units/L ALT 406 H (7-56) units/L Alkaline Phosphatase 85 (35-129) units/L Albumin 1.5 L (3.9-5) g/dL Urine 02/15/21 Range/Units 17:30 Urine Color Red (Yellow) Urine pH 5.0 (5.0-7.0) Ur Specific [place] 1.013 (1.003-1.030) Urine Protein >500 (Negative) mg/dL Urine Glucose (UA) Neg (Negative) mg/dL Microbiology: Microbiology 02/15/21 13:09 Peripheral/Venous Blood Culture - Preliminary Culture in Progress 02/15/21 13:09 Peripheral/Venous Blood Culture - Preliminary Culture in Progress - Imaging and Cardiology EKG: report reviewed Chest x-ray: report reviewed Imaging and Cardiology: Chest x-ray Endotracheal tube 2 cm above the lidia Bob enlargement of the cardia pericardial silhouette may be related to cardiomyopathy and pericardial effusion Severe bilateral parenchymal disease may be related to pneumonia aspiration asymmetric edema or diffuse alveolar damage. There are more focal areas of consolidation in both upper lobes greater on the right than the left no large pleural effusion no pneumothorax. Assessment and Plan Assessment and plan: Critical care statement The high probability OF a clinically significant sudden or life-threatening deterioration of the cardiorespiratory system and endocrine system required my full and direct attention, intervention and postoperative management. The aggregate critical care time was 40 minutes. The time is in addition to time spent performing reported procedures but includes the followin: Data review and interpretation 2: Patient assessment and monitoring of vital signs 3: Documentation 4:: Medication orders and management Advance Directives: Yes (Full code) VTE prophylaxis?: Chemical Plan of care discussed with patient/family: Yes - Patient Problems (1) Cardiac arrest Current Visit: Yes Status: Acute Plan to address problem: S/p cardiac arrest etiology unclear Possible hyperkalemia and severe renal failure may have been the precipitating factors Patient is also severely anemic with a hemoglobin of 3.5 (2) Septic shock Current Visit: Yes Status: Acute Plan to address problem: Patient on pressors-Levophed (3) Hyperkalemia Current Visit: Yes Status: Acute Plan to address problem: Treated aggressively and patient being taken for emergent hemodialysis (4) Severe anemia Current Visit: Yes Status: Acute Plan to address problem: Etiology unclear Probably secondary to chronic kidney disease Transfused 3 to 4 units of packed red blood cells (5) Chronic kidney disease Current Visit: Yes Status: Acute Qualifiers: Chronic kidney disease stage: stage 5, not on chronic dialysis Qualified Code(s): N18.5 - Chronic kidney disease, stage 5 Plan to address problem: Needs emergent hemodialysis nephrology consulted (6) Bilateral pneumonia Current Visit: Yes Status: Acute Qualifiers: Pneumonia type: due to unspecified organism Plan to address problem: Patient started on IV IV antibiotics (7) NSTEMI (non-ST elevated myocardial infarction) Current Visit: Yes Status: Acute Plan to address problem: Defer to cardiology (8) Elevated brain natriuretic peptide (BNP) level Current Visit: Yes Status: Acute Plan to address problem: Echocardiogram for ejection fraction function (9) DVT prophylaxis Current Visit: Yes Status: Acute Plan to address problem: On anticoagulation GI prophylaxis
[2021-02-16] MEDS ORDERED: SODIUM CHLORIDE 0.9% 500 ML 500 ML IV SCH (07:25)
--- NOTE | 2021-02-16 08:29 | Consultation ---
History of Present Illness Consult date: 02/16/21 Reason for Consult: Post cardiac arrest History of present illness: Unresponsive at home for 10 minutes History of present illness: 30-year-old -[place] male with unknown medical history was found unresponsive at home. EMS was called and the downtime was approximately 10 minutes. On EMS arrival the patient was pulseless with dilated pupils. ACLS protocol was initiated and patient was intubated with Kushal's airway. Patient's initial rhythm was pulseless electrical activity. ACLS was continued during the arrival in the emergency room. In the emergency room patient was intubated emergently by the ER physician-Dr. Mathew. Not much history is available. In the emergency room emergent transthoracic echocardiogram was performed which demonstrated pericardial effusion and a possible clot in the right atrium and right ventricle. Also LV hypokinesis and right ventricular dyskinesis. As per the ER physician patient had a high potassium level#7.9. with severe renal failure and severe anemia with hemoglobin of 3.5 etiology is unclear. No bleeding episodes. No fever or chills. patient has a longstanding chronic kidney disease resulting in anemia and not seeking medical attention. Emergency room course patient received multiple rounds of epinephrine calcium and sodium bicarbonate. Low blood glucose of 20. Vasopressors were started a central line was initiated after prolonged resuscitation spontaneous circulation was obtained. Patient has a GCS of 3. Patient is also hypothermic initially# 87.1 ,currently #97.7 he is off all sedation and pressor agent with vital stables Past History Past Medical History: other (unknwon) Past Surgical History: Other (unknown) Social history: lives with family, full code Family history: hypertension Medications and Allergies Allergies Allergy/AdvReac Type Severity Reaction Status Date / Time Unable to Assess Allergy Verified 02/15/21 12:34 Active Meds: Active Medications Acetaminophen (Acetaminophen 325 Mg Tab) 650 mg PO Q4H PRN PRN Reason: Pain MILD(1-3)/Fever >100.5/AC Ascorbic Acid (Ascorbic Acid 500 Mg Tab) 500 mg PO BID [facility] Last Admin: 02/15/21 22:39 Dose: 500 mg Documented by: Dextrose (Dextrose 50% In Water (25gm) 50 Ml Syringe) 50 ml IV Q30MIN PRN; Protocol PRN Reason: Hypoglycemia Famotidine (Famotidine 20 Mg/2 Ml Inj) 20 mg IV BID [facility] Last Admin: 02/15/21 22:18 Dose: 20 mg Documented by: Fentanyl (Fentanyl 100 Mcg/2 Ml Inj) 50 mcg IV Q10MIN PRN PRN Reason: ANALGESIA Heparin Sodium (Porcine) (Heparin 5,000 Unit/1 Ml Vial) 5,000 unit SUB-Q Q12HR BOY Last Admin: 02/15/21 22:18 Dose: 5,000 unit Documented by: Hydromorphone HCl (Hydromorphone 1 Mg/1 Ml Inj) 0.5 mg IV Q3H PRN PRN Reason: Pain , Severe (7-10) Hydrophilic Ointment (Lip Therapy Vaseline) 1 applic TP Q2HR PRN PRN Reason: Dry Lips Fentanyl Citrate (Fentanyl Drip Premix) 2,000 mcg in 100 mls @ 3.856 mls/hr IV TITR BOY; Protocol Pantoprazole Sodium 80 mg/ (Sodium Chloride) 100 mls @ 10 mls/hr IV DIRECT BOY Sodium Chloride (Nacl 0.9%) 100 mls @ 999 mls/hr IV RAFIQ PRN PRN Reason: Hypotension Propofol (Diprivan 10 Mg/Ml) 1,000 mg in 100 mls @ 2.313 mls/hr IV TITR BOY; Protocol Propofol (Diprivan 10 Mg/Ml) 1,000 mg in 100 mls @ 2.313 mls/hr IV TITR BOY; Protocol Sodium Chloride (Nacl 0.9% 1000 Ml) 1,000 mls @ 75 mls/hr IV DIRECT BOY NORepinephrine/NS 8 MG-250 ML (Norepinephrine/Ns 8 Mg-250 Ml (Double Conc)) 8 mg in 250 mls @ 3.75 mls/hr IV TITRATE BOY; Protocol Last Titration: 02/16/21 06:53 Dose: 6 mcg/min, 11.25 mls/hr Documented by: Azithromycin (Zithromax/Ns) 500 mg in 250 mls @ 250 mls/hr IV Q24H BOY Stop: 02/20/21 20:59 Last Admin: 02/15/21 22:19 Dose: 250 mls/hr Documented by: Ceftriaxone Sodium (Rocephin/Ns 1 Gm/50 Ml) 1 gm in 50 mls @ 100 mls/hr IV Q24H BOY; Protocol Stop: 02/19/21 21:29 Last Admin: 02/15/21 21:11 Dose: 100 mls/hr Documented by: Sodium Bicarbonate 150 meq/ (Dextrose) 1,150 mls @ 100 mls/hr IV DIRECT [facility] Stop: 02/18/21 08:29 Last Admin: 02/15/21 23:03 Dose: 100 mls/hr Documented by: Methylprednisolone Sodium Succinate (Methylprednisolone Sod Succinate 40 Mg/1 Ml Inj) 40 mg IV Q8H [facility] Last Admin: 02/16/21 06:31 Dose: 40 mg Documented by: Morphine Sulfate (Morphine 2 Mg/1 Ml Inj) 2 mg IV Q4H PRN PRN Reason: Pain, Moderate (4-6) Multi-Ingred Cream/Lotion/Oil/Oint (Mineral Oil/Petrolatum, White Ophth Oint 3.5 Gm) 1 applic OU Q4HR PRN PRN Reason: Dry Eye(s) Ondansetron HCl (Ondansetron 4 Mg/2 Ml Inj) 4 mg IV Q8H PRN PRN Reason: Nausea And Vomiting Senna/Docusate Sodium (Sennosides/Docusate Sodium 8.6/50 Mg Tab) 1 tab FEEDTUBE BID [facility] Last Admin: 02/15/21 22:20 Dose: Not Given Documented by: Sodium Chloride (Sodium Chloride 0.9% 10 Ml Flush Syringe) 10 ml IV BID [facility] Last Admin: 02/15/21 22:20 Dose: 10 ml Documented by: Sodium Chloride (Sodium Chloride 0.9% 10 Ml Flush Syringe) 10 ml IV PRN PRN PRN Reason: LINE FLUSH Zinc Sulfate (Zinc Sulfate 220 Mg Cap) 220 mg PO BID [facility] Last Admin: 02/15/21 22:39 Dose: 220 mg Documented by: Review of Systems ROS unobtainable: due to endotracheal tube, due to mental status All systems: negative Past History Past Medical History: other (unknwon) Past Surgical History: Other (unknown) Social history: lives with family, full code Family history: hypertension Medications and Allergies Allergies Allergy/AdvReac Type Severity Reaction Status Date / Time Unable to Assess Allergy Verified 02/15/21 12:34 Active Meds: Active Medications Acetaminophen (Acetaminophen 325 Mg Tab) 650 mg PO Q4H PRN PRN Reason: Pain MILD(1-3)/Fever >100.5/AC Ascorbic Acid (Ascorbic Acid 500 Mg Tab) 500 mg PO BID [facility] Last Admin: 02/15/21 22:39 Dose: 500 mg Documented by: Dextrose (Dextrose 50% In Water (25gm) 50 Ml Syringe) 50 ml IV Q30MIN PRN; Protocol PRN Reason: Hypoglycemia Fentanyl (Fentanyl 100 Mcg/2 Ml Inj) 50 mcg IV Q10MIN PRN PRN Reason: ANALGESIA Heparin Sodium (Porcine) (Heparin 5,000 Unit/1 Ml Vial) 5,000 unit SUB-Q Q12HR BOY Last Admin: 02/15/21 22:18 Dose: 5,000 unit Documented by: Hydromorphone HCl (Hydromorphone 1 Mg/1 Ml Inj) 0.5 mg IV Q3H PRN PRN Reason: Pain , Severe (7-10) Hydrophilic Ointment (Lip Therapy Vaseline) 1 applic TP Q2HR PRN PRN Reason: Dry Lips Fentanyl Citrate (Fentanyl Drip Premix) 2,000 mcg in 100 mls @ 3.856 mls/hr IV TITR BOY; Protocol Pantoprazole Sodium 80 mg/ (Sodium Chloride) 100 mls @ 10 mls/hr IV DIRECT BOY Sodium Chloride (Nacl 0.9%) 100 mls @ 999 mls/hr IV RAFIQ PRN PRN Reason: Hypotension Propofol (Diprivan 10 Mg/Ml) 1,000 mg in 100 mls @ 2.313 mls/hr IV TITR BOY; Protocol Sodium Chloride (Nacl 0.9% 1000 Ml) 1,000 mls @ 75 mls/hr IV DIRECT BOY NORepinephrine/NS 8 MG-250 ML (Norepinephrine/Ns 8 Mg-250 Ml (Double Conc)) 8 mg in 250 mls @ 3.75 mls/hr IV TITRATE BOY; Protocol Last Titration: 02/16/21 06:53 Dose: 6 mcg/min, 11.25 mls/hr Documented by: Azithromycin (Zithromax/Ns) 500 mg in 250 mls @ 250 mls/hr IV Q24H BOY Stop: 02/20/21 20:59 Last Admin: 02/15/21 22:19 Dose: 250 mls/hr Documented by: Sodium Bicarbonate 150 meq/ (Dextrose) 1,150 mls @ 100 mls/hr IV DIRECT BOY Stop: 02/18/21 08:29 Last Admin: 02/15/21 23:03 Dose: 100 mls/hr Documented by: Sodium Chloride (Nacl 0.9% 500 Ml) 500 mls @ 0 mls/hr IV ONCE [facility] Stop: 02/16/21 23:59 Ceftriaxone Sodium (Rocephin/Ns 2 Gm/100 Ml) 2 gm in 100 mls @ 200 mls/hr IV Q24H [facility]; Protocol Stop: 02/19/21 22:29 Methylprednisolone Sodium Succinate (Methylprednisolone Sod Succinate 40 Mg/1 Ml Inj) 40 mg IV Q8H [facility] Last Admin: 02/16/21 06:31 Dose: 40 mg Documented by: Morphine Sulfate (Morphine 2 Mg/1 Ml Inj) 2 mg IV Q4H PRN PRN Reason: Pain, Moderate (4-6) Multi-Ingred Cream/Lotion/Oil/Oint (Mineral Oil/Petrolatum, White Ophth Oint 3.5 Gm) 1 applic OU Q4HR PRN PRN Reason: Dry Eye(s) Ondansetron HCl (Ondansetron 4 Mg/2 Ml Inj) 4 mg IV Q8H PRN PRN Reason: Nausea And Vomiting Senna/Docusate Sodium (Sennosides/Docusate Sodium 8.6/50 Mg Tab) 1 tab FEEDTUBE BID [facility] Last Admin: 02/15/21 22:20 Dose: Not Given Documented by: Sodium Chloride (Sodium Chloride 0.9% 10 Ml Flush Syringe) 10 ml IV BID [facility] Last Admin: 02/15/21 22:20 Dose: 10 ml Documented by: Sodium Chloride (Sodium Chloride 0.9% 10 Ml Flush Syringe) 10 ml IV PRN PRN PRN Reason: LINE FLUSH Zinc Sulfate (Zinc Sulfate 220 Mg Cap) 220 mg PO BID [facility] Last Admin: 02/15/21 22:39 Dose: 220 mg Documented by: Physical Examination - Vital Signs Vital Signs: Vital Signs Pulse Ox 100 02/15/21 12:28 - Constitutional General appearance: comfortable - EENT EENT: Present: mucous membranes moist - Respiratory Respiratory: Present: chest non-tender, lungs clear, rhonchi - Cardiovascular Cardiovascular: Present: regular rate, normal S1, normal S2 Extremities: Present: no peripheral edema bilatateraly, no clubbing, cyanosis - Gastrointestinal Gastrointestinal: Present: normoactive bowel sounds - Integumentary Integumentary: Present: normal - Neurologic Cranial nerve examination: other (pupils 4 mm none reactive, no corneal , no gag ,no spontaneous respiration is noted, NO EOM is noted) Detailed motor examination: other (no movment to stimuli is noted) Results - Laboratory Findings CBC and BMP: 02/15/21 23:23 02/15/21 23:23 Abnormal Lab Findings: Abnormal Labs 02/15/21 02/15/21 02/15/21 13:02 13:04 13:04 WBC 2.3 L RBC 1.54 L Hgb 3.5 L* Hct 11.8 L* MCV 77 L MCH 23 L MCHC 30 L RDW 22.3 H Seg Neuts % (Manual) 77.0 H Lymphocytes % (Manual) 12.0 L Nucleated RBC % 2.0 H Lymphocytes # (Manual) 0.3 L PT 19.9 H INR 1.53 H APTT 89.3 H* D-Dimer 3584.01 H ABG pH POC ABG pCO2 ABG pO2 ABG HCO3 ABG O2 Saturation ABG Base Excess ABG Hemoglobin ABG Oxyhemoglobin ABG Sodium ABG Potassium ABG Chloride ABG Glucose Carboxyhemoglobin Potassium Chloride Carbon Dioxide BUN Creatinine Glucose POC Glucose Lactic Acid 12.40 H* Calcium Phosphorus Ferritin AST ALT Lactate Dehydrogenase Total Creatine Kinase CK-MB (CK-2) CK-MB (CK-2) Rel Index Troponin T C-Reactive Protein NT-Pro-B Natriuret Pep Total Protein Albumin HDL Cholesterol TSH Arterial Blood Glucose Urine WBC (Auto) Salicylates Acetaminophen Crossmatch 02/15/21 02/15/21 02/15/21 13:04 13:04 13:04 WBC RBC Hgb Hct MCV MCH MCHC RDW Seg Neuts % (Manual) Lymphocytes % (Manual) Nucleated RBC % Lymphocytes # (Manual) PT INR APTT D-Dimer ABG pH POC ABG pCO2 ABG pO2 ABG HCO3 ABG O2 Saturation ABG Base Excess ABG Hemoglobin ABG Oxyhemoglobin ABG Sodium ABG Potassium ABG Chloride ABG Glucose Carboxyhemoglobin Potassium 9.7 H* Chloride 111.2 H Carbon Dioxide 13 L BUN 73 H Creatinine 6.5 H Glucose 20 L* POC Glucose Lactic Acid Calcium 12.0 H Phosphorus Ferritin AST 605 H ALT 406 H Lactate Dehydrogenase 1369 H Total Creatine Kinase CK-MB (CK-2) CK-MB (CK-2) Rel Index Troponin T C-Reactive Protein 5.30 H NT-Pro-B Natriuret Pep 985926 H Total Protein 5.9 L Albumin 1.5 L HDL Cholesterol TSH Arterial Blood Glucose Urine WBC (Auto) Salicylates Acetaminophen Crossmatch See Detail 02/15/21 02/15/21 02/15/21 13:04 13:04 13:04 WBC RBC Hgb Hct MCV MCH MCHC RDW Seg Neuts % (Manual) Lymphocytes % (Manual) Nucleated RBC % Lymphocytes # (Manual) PT INR APTT D-Dimer ABG pH POC ABG pCO2 ABG pO2 ABG HCO3 ABG O2 Saturation ABG Base Excess ABG Hemoglobin ABG Oxyhemoglobin ABG Sodium ABG Potassium ABG Chloride ABG Glucose Carboxyhemoglobin Potassium Chloride Carbon Dioxide BUN Creatinine Glucose POC Glucose Lactic Acid Calcium Phosphorus Ferritin AST ALT Lactate Dehydrogenase Total Creatine Kinase CK-MB (CK-2) CK-MB (CK-2) Rel Index Troponin T C-Reactive Protein NT-Pro-B Natriuret Pep Total Protein Albumin HDL Cholesterol TSH 7.000 H Arterial Blood Glucose Urine WBC (Auto) Salicylates < 0.3 L Acetaminophen 5.0 L Crossmatch 02/15/21 02/15/21 02/15/21 13:07 13:08 13:10 WBC RBC Hgb Hct MCV MCH MCHC RDW Seg Neuts % (Manual) Lymphocytes % (Manual) Nucleated RBC % Lymphocytes # (Manual) PT INR APTT D-Dimer ABG pH POC ABG pCO2 ABG pO2 ABG HCO3 ABG O2 Saturation ABG Base Excess ABG Hemoglobin ABG Oxyhemoglobin ABG Sodium ABG Potassium ABG Chloride ABG Glucose Carboxyhemoglobin Potassium Chloride Carbon Dioxide BUN Creatinine Glucose POC Glucose 11 L 13 L Lactic Acid Calcium Phosphorus Ferritin AST ALT Lactate Dehydrogenase Total Creatine Kinase 462 H CK-MB (CK-2) 20.8 H CK-MB (CK-2) Rel Index 4.5 H Troponin T 0.554 H* C-Reactive Protein NT-Pro-B Natriuret Pep Total Protein Albumin HDL Cholesterol 27 L TSH Arterial Blood Glucose Urine WBC (Auto) Salicylates Acetaminophen Crossmatch 02/15/21 02/15/21 02/15/21 14:23 16:10 17:30 WBC RBC Hgb Hct MCV MCH MCHC RDW Seg Neuts % (Manual) Lymphocytes % (Manual) Nucleated RBC % Lymphocytes # (Manual) PT INR APTT D-Dimer ABG pH 6.845 L* POC ABG pCO2 ABG pO2 296.7 H ABG HCO3 12.4 L ABG O2 Saturation 99.3 H ABG Base Excess -18.6 L ABG Hemoglobin ABG Oxyhemoglobin ABG Sodium ABG Potassium ABG Chloride ABG Glucose Carboxyhemoglobin Potassium Chloride Carbon Dioxide BUN Creatinine Glucose POC Glucose Lactic Acid Calcium Phosphorus Ferritin AST ALT Lactate Dehydrogenase Total Creatine Kinase 2102 H CK-MB (CK-2) 50.0 H CK-MB (CK-2) Rel Index Troponin T 1.290 H* D C-Reactive Protein NT-Pro-B Natriuret Pep Total Protein Albumin HDL Cholesterol TSH Arterial Blood Glucose Urine WBC (Auto) 55.0 H Salicylates Acetaminophen Crossmatch 02/15/21 02/15/21 02/15/21 19:02 19:02 19:02 WBC RBC 2.29 L Hgb 5.7 L* Hct 18.1 L* D MCV 79 L MCH 25 L MCHC RDW 22.0 H Seg Neuts % (Manual) 79.0 H Lymphocytes % (Manual) 1.0 L Nucleated RBC % Lymphocytes # (Manual) 0.1 L PT INR APTT D-Dimer ABG pH POC ABG pCO2 ABG pO2 ABG HCO3 ABG O2 Saturation ABG Base Excess ABG Hemoglobin ABG Oxyhemoglobin ABG Sodium ABG Potassium ABG Chloride ABG Glucose Carboxyhemoglobin Potassium Chloride Carbon Dioxide BUN Creatinine Glucose POC Glucose Lactic Acid 5.90 H* Calcium Phosphorus Ferritin AST ALT Lactate Dehydrogenase Total Creatine Kinase 2992 H CK-MB (CK-2) 54.3 H CK-MB (CK-2) Rel Index Troponin T 1.150 H* C-Reactive Protein NT-Pro-B Natriuret Pep Total Protein Albumin HDL Cholesterol TSH Arterial Blood Glucose Urine WBC (Auto) Salicylates Acetaminophen Crossmatch 02/15/21 02/15/21 02/15/21 19:02 20:26 23:23 WBC RBC 2.31 L Hgb 5.8 L* Hct 18.5 L* MCV 80 L MCH 25 L MCHC 31 L RDW 21.1 H Seg Neuts % (Manual) 82.0 H Lymphocytes % (Manual) 1.0 L Nucleated RBC % 8.0 H Lymphocytes # (Manual) 0.1 L PT INR APTT D-Dimer ABG pH 7.044 L POC ABG pCO2 65.8 H ABG pO2 ABG HCO3 ABG O2 Saturation ABG Base Excess ABG Hemoglobin 6.0 L ABG Oxyhemoglobin 91.1 L ABG Sodium 135.9 L ABG Potassium 5.0 H ABG Chloride 108.0 H ABG Glucose 106 H Carboxyhemoglobin 0.4 L Potassium 5.5 H D Chloride Carbon Dioxide 16 L BUN 46 H Creatinine 4.5 H Glucose 117 H POC Glucose Lactic Acid Calcium 8.3 L D Phosphorus Ferritin AST ALT Lactate Dehydrogenase Total Creatine Kinase CK-MB (CK-2) CK-MB (CK-2) Rel Index Troponin T C-Reactive Protein NT-Pro-B Natriuret Pep Total Protein Albumin HDL Cholesterol TSH Arterial Blood Glucose 106 H Urine WBC (Auto) Salicylates Acetaminophen Crossmatch 02/15/21 02/15/21 02/15/21 23:23 23:23 23:23 WBC RBC Hgb Hct MCV MCH MCHC RDW Seg Neuts % (Manual) Lymphocytes % (Manual) Nucleated RBC % Lymphocytes # (Manual) PT INR APTT D-Dimer ABG pH POC ABG pCO2 ABG pO2 ABG HCO3 ABG O2 Saturation ABG Base Excess ABG Hemoglobin ABG Oxyhemoglobin ABG Sodium ABG Potassium ABG Chloride ABG Glucose Carboxyhemoglobin Potassium 5.4 H Chloride 107.7 H Carbon Dioxide 15 L BUN 52 H Creatinine 4.8 H Glucose POC Glucose Lactic Acid 5.60 H* Calcium 7.6 L Phosphorus Ferritin 388.1 H AST ALT Lactate Dehydrogenase Total Creatine Kinase CK-MB (CK-2) CK-MB (CK-2) Rel Index Troponin T C-Reactive Protein NT-Pro-B Natriuret Pep Total Protein Albumin HDL Cholesterol TSH Arterial Blood Glucose Urine WBC (Auto) Salicylates Acetaminophen Crossmatch 02/15/21 02/15/21 23:23 23:23 WBC RBC Hgb Hct MCV MCH MCHC RDW Seg Neuts % (Manual) Lymphocytes % (Manual) Nucleated RBC % Lymphocytes # (Manual) PT INR APTT D-Dimer ABG pH POC ABG pCO2 ABG pO2 ABG HCO3 ABG O2 Saturation ABG Base Excess ABG Hemoglobin ABG Oxyhemoglobin ABG Sodium ABG Potassium ABG Chloride ABG Glucose Carboxyhemoglobin Potassium Chloride Carbon Dioxide BUN Creatinine Glucose POC Glucose Lactic Acid Calcium Phosphorus 9.60 H Ferritin AST ALT Lactate Dehydrogenase Total Creatine Kinase CK-MB (CK-2) CK-MB (CK-2) Rel Index Troponin T C-Reactive Protein 6.80 H NT-Pro-B Natriuret Pep Total Protein Albumin HDL Cholesterol TSH Arterial Blood Glucose Urine WBC (Auto) Salicylates Acetaminophen Crossmatch Assessment and Plan Assessment and Plan Assessment and plan: Advance Directives: Yes (Full code) VTE prophylaxis?: Chemical Plan of care discussed with patient/family: Yes - Patient Problems # Post Cardiac arrest S/p cardiac arrest etiology unclear Possible hyperkalemia and severe renal failure may have been the precipitating factors Patient is also severely anemic with a hemoglobin of 3.5 # Initial Hypothermia -87.1 currently # 97.7 # Septic shock Patient on pressors-Levophed # Hyperkalemia -Treated aggressively # Severe anemia -Etiology unclear -Probably secondary to chronic kidney disease -Transfused 3 to 4 units of packed red blood cells # Chronic kidney disease -Needs emergent hemodialysis nephrology consulted # Bilateral pneumonia -Patient started on IV IV antibiotics # NSTEMI (non-ST elevated myocardial infarction) -Defer to cardiology # Elevated brain natriuretic peptide (BNP) level -Echocardiogram for ejection fraction function # DVT prophylaxis -On anticoagulation GI prophylaxis over all prognosis is poor Suggest MRI brain and EEG OFF all sedation correct electrolytes abnormalities and hypothermia
--- NOTE | 2021-02-16 09:32 | Progress Note ---
Subjective Interval history: Patient was seen today for follow-up of multiple renal related issues Admitted with cardiac arrest Found to have PEA, widening of QRS potassium was 9.7 upon admission Interdisciplinary notes that also reviewed Status post dialysis yesterday Events of 24 hours vitals labs intake output medications were reviewed Past medical history: Reviewed Family history: Reviewed Social history: Reviewed Allergies: Reviewed Physical examination: Vitals: Reviewed HEENT: intubated unresponsive Neck: Supple no JVD no thyromegaly Chest: Bilateral crackles, diminished at lung bases Heart: Regular rate and rhythm S1-S2 heard no S3-S4 Abdomen: Soft nontender no voluntary guarding rigidity rebound Extremity: Dry skin less than 1+ peripheral edema Psychiatric: No evidence of agitation and aggression noted Dermatology: No petechial rashes Labs and x-rays: Reviewed from today Assessment and plan #Acute kidney injury resulting from cardiac arrest most likely rule out any possibility of underlying chronic kidney disease admission potassium was 9.7, patient did receive renal placement therapy Will monitor for any meaningful recovery of renal function and ongoing need for renal placement therapy on a daily basis, continue with supportive care Given the history of cardiac arrest,possibility of anoxic brain injury is high Will require further studies to assess the extent of neurological injury #Hyperkalemia metabolic acidosis continue to dialyze as tolerated #Pericardial effusion, noted on echocardiogram with a clot in the right atrium and right ventricle with LV hypokinesis and right ventricular dyskinesis Etiology of pericardial effusion appears to be unclear at this time, cardiology to evaluate #Lactic acidosis appears to be improving with oxygenation hydration etc. #Severe anemia, may require packed red blood cell transfusion that can be given with hemodialysis, #Shock liver likely, rule out underlying liver disease rule out other causes #Mild to moderate rhabdomyolysis, rising creatinine kinase, abnormal troponin cardiology to follow time spent in critical care 35 minutes high mortality risk We'll continue to follow and make recommendation for renal standpoint Objective - Vital Signs Vital signs: Vital Signs - 12hr 02/15/21 02/16/21 02/16/21 23:53 00:00 02:23 Temperature 97.7 F Pulse Rate 75 103 H Respiratory Rate Blood Pressure 133/90 139/92 O2 Sat by Pulse 100 100 Oximetry 02/16/21 02/16/21 02/16/21 02:38 03:08 03:53 Temperature 97.6 F 97.7 F Pulse Rate 100 H Respiratory 22 Rate Blood Pressure 134/87 O2 Sat by Pulse 100 Oximetry 02/16/21 02/16/21 02/16/21 04:00 04:20 04:40 Temperature Pulse Rate 99 H 99 H 98 H Respiratory 21 13 20 Rate Blood Pressure 134/87 139/93 139/99 O2 Sat by Pulse 100 100 100 Oximetry 02/16/21 02/16/21 02/16/21 05:00 05:20 05:40 Temperature Pulse Rate 97 H 93 H 95 H Respiratory 21 17 24 Rate Blood Pressure 145/100 137/92 111/71 O2 Sat by Pulse 100 100 100 Oximetry 02/16/21 02/16/21 02/16/21 05:53 06:00 06:20 Temperature Pulse Rate 94 H 93 H Respiratory 23 16 Rate Blood Pressure 130/88 132/91 O2 Sat by Pulse 100 100 100 Oximetry 02/16/21 02/16/21 02/16/21 06:40 07:00 07:15 Temperature Pulse Rate 93 H 92 H 92 H Respiratory 16 16 40 H Rate Blood Pressure 129/89 134/94 130/90 O2 Sat by Pulse 100 100 100 Oximetry 02/16/21 02/16/21 02/16/21 07:30 07:53 08:01 Temperature Pulse Rate 91 H 90 90 Respiratory 28 H 15 28 H Rate Blood Pressure 130/90 134/94 134/94 O2 Sat by Pulse 100 100 100 Oximetry 02/16/21 02/16/21 02/16/21 08:15 08:31 08:45 Temperature Pulse Rate 90 89 89 Respiratory 17 26 H 19 Rate Blood Pressure 135/96 144/104 145/104 O2 Sat by Pulse 100 100 100 Oximetry 02/16/21 09:01 Temperature Pulse Rate 89 Respiratory 11 L Rate Blood Pressure 141/104 O2 Sat by Pulse 100 Oximetry - Lab 02/16/21 20:08 02/17/21 10:44 Most recent lab results ABG pH 7.044 (7.320-7.450) L 02/15/21 20:26 ABG pCO2 73.7 mm Hg 02/15/21 14:23 ABG pO2 296.7 mm Hg (80.0-90.0) H 02/15/21 14:23 ABG HCO3 12.4 mmol/L (20.0-26.0) L 02/15/21 14:23 ABG O2 Saturation 91.7 (0-100) 02/15/21 20:26 Calcium 7.6 mg/dL (8.4-10.2) L 02/15/21 23:23 Phosphorus 9.60 mg/dL (2.5-4.5) H 02/15/21 23:23 Magnesium 1.80 mg/dL (1.7-2.3) 02/15/21 23:23 Medications & Allergies - Medications Allergies/Adverse Reactions: Allergies Unable to Assess Allergy (Verified 02/15/21 12:34) cardiac arrest Active Medications: Generic Name Dose Route Start Last Admin Trade Name Freq PRN Reason Stop Dose Admin Acetaminophen 650 mg 02/15/21 18:48 Acetaminophen 325 Mg Tab PO Q4H PRN Pain MILD(1-3)/Fever >100.5/AC Ascorbic Acid 500 mg 02/15/21 22:00 02/15/21 22:39 Ascorbic Acid 500 Mg Tab PO 500 mg BID BOY Administration Dextrose 50 ml 02/15/21 14:00 Dextrose 50% In Water (25gm) 50 Ml Syringe IV Q30MIN PRN Hypoglycemia Protocol Fentanyl 50 mcg 02/15/21 13:10 Fentanyl 100 Mcg/2 Ml Inj IV Q10MIN PRN ANALGESIA Heparin Sodium (Porcine) 5,000 unit 02/15/21 22:00 02/15/21 22:18 Heparin 5,000 Unit/1 Ml Vial SUB-Q 5,000 unit Q12HR BOY Administration Hydromorphone HCl 0.5 mg 02/15/21 18:48 Hydromorphone 1 Mg/1 Ml Inj IV Q3H PRN Pain , Severe (7-10) Hydrophilic Ointment 1 applic 02/15/21 13:10 Lip Therapy Vaseline TP Q2HR PRN Dry Lips Fentanyl Citrate 2,000 mcg in 100 mls @ 3.856 mls/hr 02/15/21 14:00 Fentanyl Drip Premix IV TITR BOY Protocol 1 MCG/KG/HR Pantoprazole Sodium 80 mg/ 100 mls @ 10 mls/hr 02/15/21 14:00 Sodium Chloride IV DIRECT BOY 8 MG/HR Sodium Chloride 100 mls @ 999 mls/hr 02/15/21 14:38 Nacl 0.9% IV RAFIQ PRN Hypotension Propofol 1,000 mg in 100 mls @ 2.313 mls/hr 02/15/21 17:00 Diprivan 10 Mg/Ml IV TITR BOY Protocol 5 MCG/KG/MIN Sodium Chloride 1,000 mls @ 75 mls/hr 02/15/21 19:00 Nacl 0.9% 1000 Ml IV DIRECT BOY NORepinephrine/NS 8 MG-250 ML 8 mg in 250 mls @ 3.75 mls/hr 02/15/21 21:00 02/16/21 09:13 Norepinephrine/Ns 8 Mg-250 Ml (Double Conc) IV 4 mcg/min TITRATE BOY 7.5 mls/hr Titration Protocol 2 MCG/MIN Azithromycin 500 mg in 250 mls @ 250 mls/hr 02/15/21 21:00 02/15/21 22:19 Zithromax/Ns IV 02/20/21 20:59 250 mls/hr Q24H BOY Administration Sodium Bicarbonate 150 meq/ 1,150 mls @ 100 mls/hr 02/15/21 21:00 02/15/21 23:03 Dextrose IV 02/18/21 08:29 100 mls/hr DIRECT BOY Administration Sodium Chloride 500 mls @ 0 mls/hr 02/16/21 07:25 Nacl 0.9% 500 Ml IV 02/16/21 23:59 ONCE BOY As Directed Ceftriaxone Sodium 2 gm in 100 mls @ 200 mls/hr 02/16/21 22:00 Rocephin/Ns 2 Gm/100 Ml IV 02/19/21 22:29 Q24H BOY Protocol Methylprednisolone Sodium Succinate 40 mg 02/15/21 22:00 02/16/21 06:31 Methylprednisolone Sod Succinate 40 Mg/1 Ml Inj IV 40 mg Q8H BOY Administration Morphine Sulfate 2 mg 02/15/21 18:48 Morphine 2 Mg/1 Ml Inj IV Q4H PRN Pain, Moderate (4-6) Multi-Ingred Cream/Lotion/Oil/Oint 1 applic 02/15/21 13:10 Mineral Oil/Petrolatum, White Ophth Oint 3.5 Gm OU Q4HR PRN Dry Eye(s) Ondansetron HCl 4 mg 02/15/21 18:48 Ondansetron 4 Mg/2 Ml Inj IV Q8H PRN Nausea And Vomiting Senna/Docusate Sodium 1 tab 02/15/21 22:00 02/15/21 22:20 Sennosides/Docusate Sodium 8.6/50 Mg Tab FEEDTUBE Not Given BID BOY Sodium Chloride 10 ml 02/15/21 22:00 02/15/21 22:20 Sodium Chloride 0.9% 10 Ml Flush Syringe IV 10 ml BID BOY Administration Sodium Chloride 10 ml 02/15/21 18:48 Sodium Chloride 0.9% 10 Ml Flush Syringe IV PRN PRN LINE FLUSH Zinc Sulfate 220 mg 02/15/21 22:00 02/15/21 22:39 Zinc Sulfate 220 Mg Cap PO 220 mg BID BOY Administration
[2021-02-16] MEDS ORDERED: FAMOTIDINE 20 MG/2 ML INJ IV SCH (10:00)
[2021-02-16 10:05] LABS: ABG HCO3 16.6 mmol/L (20.0-26.0); ABG Methemoglobin 0.5 % (0.0-1.5); ABG Oxygen Saturation 99.4 % (95.0-99.0); ABG PCO2 39.7 mm Hg; ABG PH 7.24 pH Units (7.350-7.450)
[2021-02-16 10:07] LABS: ABG PO2 283.7 mm Hg (80.0-90.0)
--- NOTE | 2021-02-16 10:29 | Progress Note ---
Assessment and Plan Assessment and plan: S/p cardiopulmonary arrest Anoxic encephalopathy Septic shock Severe hyperkalemia Pericardial effusion Intracardiac thrombus. a possible clot in the right atrium and right ventricle seen on echocardiogram. Severe anemia Chronic kidney disease Bilateral pneumonia NSTEMI 02/16/2021. The patient was admitted with cardiac arrest yesterday and noted to have PEA with widening of QRS with potassium of 9.7 on admission. Patient underwent urgent HD yesterday. Acute kidney injury resulting from cardiac arrest most likely rule out any possibility of underlying chronic kidney disease. Nephrology to monitor for any meaningful recovery of renal function and ongoing need for renal placement therapy on a daily basis. Given the history of cardiopulmonary arrest, neurology consultation is pending for neurological damage/anoxic brain injury. Await CT head of brain. Patient will likely need brain flow study, MRI and EEG. Cardiology also following for cardiopulmonary arrest. Pulmonary consultation also pending. Transfuse PRBCs for hemoglobin less than 7. Patient found to have profound severe anemia with hemoglobin of 3.5 on admission. Prognosis is extremely poor. The high probability of a clinically significant, sudden or life threatening deterioration of the [cardiac, pulmonary, and neurologic] system(s) required my full and direct attention, intervention and personal management. The aggregate critical care time was [33] minutes. This time is in addition to time spent performing reported procedures but includes the following: [x] Data Review and interpretation [x] Patient assessment and monitoring of vital signs [x] Documentation [x] Medication orders and management History Interval history: No new issues overnight Hospitalist Physical - Constitutional Vitals: Temp Pulse Resp BP Pulse Ox 97.7 F 88 11 L 141/101 100 02/16/21 03:08 02/16/21 09:28 02/16/21 09:01 02/16/21 09:28 02/16/21 09:28 General appearance: Present: no acute distress, cachectic, disheveled - EENT Eyes: Present: PERRL, EOM intact ENT: hearing intact, clear oral mucosa, dentition normal - Neck Neck: Present: supple, normal ROM - Respiratory Respiratory effort: normal Respiratory: bilateral: CTA - Cardiovascular Rhythm: regular Heart Sounds: Present: S1 & S2. Absent: gallop, rub - Extremities Extremities: no ischemia, No edema, Full ROM - Abdominal General gastrointestinal: soft, non-tender, non-distended, normal bowel sounds - Integumentary Integumentary: Present: clear, warm, dry - Neurologic Neurologic: CNII-XII intact, moves all extremities HEART Score - HEART Score Age: < 45 Risk factors: No known risk factors Troponin: Troponin T 1.150 ng/mL (0.00-0.029) H* 02/15/21 19:02 - Critical Actions Critical Actions: >7 pts:50-65% risk of adverse cardiac event. Early invasive measures Results - Labs CBC & Chem 7: 02/15/21 23:23 02/15/21 23:23 Labs: Laboratory Last Values WBC 5.4 K/mm3 (4.5-11.0) 02/15/21 23:23 RBC 2.31 M/mm3 (3.65-5.03) L 02/15/21 23:23 Hgb 5.8 gm/dl (11.8-15.2) L* 02/15/21 23:23 Hct 18.5 % (35.5-45.6) L* 02/15/21 23:23 MCV 80 fl (84-94) L 02/15/21 23:23 MCH 25 pg (28-32) L 02/15/21 23:23 MCHC 31 % (32-34) L 02/15/21 23:23 RDW 21.1 % (13.2-15.2) H 02/15/21 23:23 Plt Count 147 K/mm3 (140-440) 02/15/21 23:23 Add Manual Diff Complete 02/15/21 23:23 Total Counted 100 02/15/21 23:23 Seg Neutrophils % Retail Sales Specialist 02/15/21 23:23 Seg Neuts % (Manual) 82.0 % (40.0-70.0) H 02/15/21 23:23 Band Neutrophils % 7.0 % 02/15/21 23:23 Lymphocytes % (Manual) 1.0 % (13.4-35.0) L 02/15/21 23:23 Reactive Lymphs % (Man) 1.0 % 02/15/21 13:04 Monocytes % (Manual) 1.0 % (0.0-7.3) 02/15/21 23:23 Metamyelocytes % 1.0 % 02/15/21 23:23 Myelocytes % 8.0 % 02/15/21 23:23 Nucleated RBC % 8.0 % (0.0-0.9) H 02/15/21 23:23 Seg Neutrophils # Man 4.4 K/mm3 (1.8-7.7) 02/15/21 23:23 Band Neutrophils # 0.4 K/mm3 02/15/21 23:23 Lymphocytes # (Manual) 0.1 K/mm3 (1.2-5.4) L 02/15/21 23:23 Abs React Lymphs (Man) 0.0 K/mm3 02/15/21 23:23 Monocytes # (Manual) 0.1 K/mm3 (0.0-0.8) 02/15/21 23:23 Eosinophils # (Manual) 0.0 K/mm3 (0.0-0.4) 02/15/21 23:23 Basophils # (Manual) 0.0 K/mm3 (0.0-0.1) 02/15/21 23:23 Metamyelocytes # 0.1 K/mm3 02/15/21 23:23 Myelocytes # 0.4 K/mm3 02/15/21 23:23 Promyelocytes # 0.0 K/mm3 02/15/21 23:23 Blast Cells # 0.0 K/mm3 02/15/21 23:23 WBC Morphology Not Reportable 02/15/21 23:23 Hypersegmented Neuts Not Reportable 02/15/21 23:23 Hyposegmented Neuts Not Reportable 02/15/21 23:23 Hypogranular Neuts Not Reportable 02/15/21 23:23 Smudge Cells Not Reportable 02/15/21 23:23 Toxic Granulation Not Reportable 02/15/21 23:23 Toxic Vacuolation Not Reportable 02/15/21 23:23 Dohle Bodies Not Reportable 02/15/21 23:23 Pelger-Huet Anomaly Not Reportable 02/15/21 23:23 Jennifer Rods Not Reportable 02/15/21 23:23 Platelet Estimate Consistent w auto 02/15/21 23:23 Clumped Platelets Not Reportable 02/15/21 23:23 Plt Clumps, EDTA Not Reportable 02/15/21 23:23 Large Platelets Few 02/15/21 23:23 Giant Platelets Rare 02/15/21 23:23 Platelet Satelliting Not Reportable 02/15/21 23:23 Plt Morphology Comment Not Reportable 02/15/21 23:23 RBC Morphology Not Reportable 02/15/21 23:23 Dimorphic RBCs Not Reportable 02/15/21 23:23 Polychromasia Not Reportable 02/15/21 23:23 Hypochromasia 2+ 02/15/21 23:23 Poikilocytosis 1+ 02/15/21 23:23 Anisocytosis 1+ 02/15/21 23:23 Microcytosis 1+ 02/15/21 23:23 Macrocytosis Not Reportable 02/15/21 23:23 Spherocytes Few 02/15/21 23:23 Pappenheimer Bodies Not Reportable 02/15/21 23:23 Sickle Cells Not Reportable 02/15/21 23:23 Target Cells Not Reportable 02/15/21 23:23 Tear Drop Cells Not Reportable 02/15/21 23:23 Ovalocytes 1+ 02/15/21 23:23 Helmet Cells Not Reportable 02/15/21 23:23 [place] Bodies Not Reportable 02/15/21 23:23 Boyce Rings Not Reportable 02/15/21 23:23 Sree Cells Not Reportable 02/15/21 23:23 Bite Cells Not Reportable 02/15/21 23:23 Crenated Cell Not Reportable 02/15/21 23:23 Elliptocytes 1+ 02/15/21 23:23 Acanthocytes (Spur) Not Reportable 02/15/21 23:23 Rouleaux Not Reportable 02/15/21 23:23 Hemoglobin C Crystals Not Reportable 02/15/21 23:23 Schistocytes Not Reportable 02/15/21 23:23 Malaria parasites Not Reportable 02/15/21 23:23 Den Bodies Not Reportable 02/15/21 23:23 Hem Pathologist Commnt No 02/15/21 23:23 PT 19.9 Sec. (12.2-14.9) H 02/15/21 13:04 INR 1.53 (0.87-1.13) H 02/15/21 13:04 APTT 89.3 Sec. (24.2-36.6) H* 02/15/21 13:04 D-Dimer 3584.01 ng/mlDDU (0-234) H 02/15/21 13:04 ABG pH 7.240 pH Units (7.350-7.450) L 02/16/21 09:30 POC ABG pCO2 65.8 mmHg (32.0-48.0) H 02/15/21 20: ABG pCO2 39.7 mm Hg 02/16/21 09:30 POC ABG pO2 88.5 mmHg (83-108) 02/15/21 20: ABG pO2 283.7 mm Hg (80.0-90.0) H 02/16/21 09:30 POC ABG HCO3 17.6 02/15/21: ABG HCO3 16.6 mmol/L (20.0-26.0) L 02/16/21 09: ABG O2 Saturation 99.4 % (95.0-99.0) H 02/16/21 09: ABG O2 Content 11.3 (0.0-44) 02/16/21 09: POC ABG Base Excess -11.9 02/15/21 20: ABG Base Excess -10.0 mmol/L (-2.0-3.0) L 02/16/21 09:30 ABG Hemoglobin 7.6 gm/dl (14.0-18.0) L 02/16/21 09:30 ABG Oxyhemoglobin 91.1 (94-98) L 02/15/21 20: ABG Carboxyhemoglobin 1.2 % (0.0-5.0) 02/16/21 09: ABG Methemoglobin 0.5 % (0.0-1.5) 02/16/21 09: ABG Sodium 135.9 mmol/L (136.0-145.0) L 02/15/21: ABG Potassium 5.0 mmol/L (3.40-4.50) H 02/15/21: ABG Chloride 108.0 mmol/L (98-107) H 02/15/21: ABG Glucose 106 mg/dL (65-95) H 02/15/21: Oxyhemoglobin 97.8 % (95.0-99.0) 02/16/21 09: Carboxyhemoglobin 0.4 (0.5-1.5) L 02/15/21 20:26 FiO2 70 % 02/16/21 09:30 FiO2 % 70.0 02/15/21 20:26 Sodium 140 mmol/L (137-145) 02/15/21 23:23 Potassium 5.4 mmol/L (3.6-5.0) H 02/15/21 23:23 Chloride 107.7 mmol/L (98-107) H 02/15/21 23:23 Carbon Dioxide 15 mmol/L (22-30) L 02/15/21 23:23 Anion Gap 23 mmol/L 02/15/21 23:23 BUN 52 mg/dL (9-20) H 02/15/21 23:23 Creatinine 4.8 mg/dL (0.8-1.3) H 02/15/21 23:23 Estimated GFR 18 ml/min 02/15/21 23:23 BUN/Creatinine Ratio 11 % 02/15/21 23:23 Glucose 87 mg/dL (75-100) 02/15/21 23:23 POC Glucose 94 mg/dL (70-105) 02/16/21 07:45 Lactic Acid 5.60 mmol/L (0.7-2.0) H* 02/15/21 23:23 Calcium 7.6 mg/dL (8.4-10.2) L 02/15/21 23:23 Phosphorus 9.60 mg/dL (2.5-4.5) H 02/15/21 23:23 Magnesium 1.80 mg/dL (1.7-2.3) 02/15/21 23:23 Ferritin 388.1 ng/mL (30.0-300.0) H 02/15/21 23:23 Total Bilirubin 0.20 mg/dL (0.1-1.2) 02/15/21 13:04 AST 605 units/L (5-40) H 02/15/21 13:04 ALT 406 units/L (7-56) H 02/15/21 13:04 Alkaline Phosphatase 85 units/L (35-129) 02/15/21 13:04 Lactate Dehydrogenase Cancelled 02/15/21 13:10 Total Creatine Kinase 2992 units/L (55-170) H 02/15/21 19:02 CK-MB (CK-2) 54.3 ng/mL (0.0-4.0) H 02/15/21 19:02 CK-MB (CK-2) Rel Index 1.8 (0-4) 02/15/21 19:02 Troponin T 1.150 ng/mL (0.00-0.029) H* 02/15/21 19:02 C-Reactive Protein 6.80 mg/dL (0.00-1.30) H 02/15/21 23:23 NT-Pro-B Natriuret Pep 265910 pg/mL (0-450) H 02/15/21 13:04 Total Protein 5.9 g/dL (6.3-8.2) L 02/15/21 13:04 Albumin 1.5 g/dL (3.9-5) L 02/15/21 13:04 Albumin/Globulin Ratio 0.3 % 02/15/21 13:04 Triglycerides 62 mg/dL (2-149) 02/15/21 13:10 Cholesterol 82 mg/dL (50-199) 02/15/21 13:10 LDL Cholesterol Direct 50 mg/dL (50-130) 02/15/21 13:10 HDL Cholesterol 27 mg/dL (40-59) L 02/15/21 13:10 Cholesterol/HDL Ratio 3.03 % 02/15/21 13:10 Procalcitonin 3.21 ng/mL (<0.15) 02/15/21 13:04 TSH 7.000 mlU/mL (0.270-4.200) H 02/15/21 13:04 Free T4 0.80 ng/dL (0.76-1.46) 02/15/21 13:04 Arterial Blood Glucose 106 mg/dL (65-95) H 02/15/21 20:26 Urine Color Red (Yellow) 02/15/21 17:30 Urine Turbidity Turbid (Clear) 02/15/21 17:30 Urine pH 5.0 (5.0-7.0) 02/15/21 17:30 Ur Specific [place] 1.013 (1.003-1.030) 02/15/21 17:30 Urine Protein >500 mg/dL (Negative) 02/15/21 17:30 Urine Glucose (UA) Neg mg/dL (Negative) 02/15/21 17:30 Urine Ketones Neg mg/dL (Negative) 02/15/21 17:30 Urine Blood Lg (Negative) 02/15/21 17:30 Urine Nitrite Neg (Negative) 02/15/21 17:30 Urine Bilirubin Neg (Negative) 02/15/21 17:30 Urine Urobilinogen < 2.0 mg/dL (<2.0) 02/15/21 17:30 Ur Leukocyte Esterase Neg (Negative) 02/15/21 17:30 Urine WBC (Auto) 55.0 /HPF (0.0-6.0) H 02/15/21 17:30 Urine RBC (Auto) > 182.0 /HPF (0.0-6.0) 02/15/21 17:30 U Epithel Cells (Auto) 4.0 /HPF (0-13.0) 02/15/21 17:30 Urine Bacteria (Auto) 4+ /HPF (Negative) 02/15/21 17:30 Hyaline Casts 133 /LPF 02/15/21 17:30 Urine Mucus 1+ /HPF 02/15/21 17:30 Urine Yeast (Budding) 2+ /HPF 02/15/21 17:30 Urine Sperm 2+ /HPF (OPERATIONS MANAGER STATION) 02/15/21 17:30 Salicylates < 0.3 mg/dL (2.8-20.0) L 02/15/21 13:04 Urine Opiates Screen Negative 02/15/21 17:30 Urine Methadone Screen Negative 02/15/21 17:30 Acetaminophen 5.0 ug/mL (10.0-30.0) L 02/15/21 13:04 Ur Barbiturates Screen Negative 02/15/21 17:30 Ur Phencyclidine Scrn Negative 02/15/21 17:30 Ur Amphetamines Screen Negative 02/15/21 17:30 U Benzodiazepines Scrn Negative 02/15/21 17:30 Urine Cocaine Screen Negative 02/15/21 17:30 U Marijuana (THC) Screen Positive 02/15/21 17:30 Drugs of Abuse Note Disclamer 02/15/21 17:30 Plasma/Serum Alcohol < 0.01 % (0-0.07) 02/15/21 13:04 Hepatitis A IgM Ab Non-reactive (NonReactive) 02/15/21 16:10 Hep Bs Antigen Nonreactive (Negative) 02/15/21 16:10 Hep B Core IgM Ab Non-reactive (NonReactive) 02/15/21 16:10 Hepatitis C Antibody Non-reactive (NonReactive) 02/15/21 16:10 Blood Type O POSITIVE 02/15/21 13:04 Antibody Screen Negative 02/15/21 13:04 Crossmatch See Detail 02/15/21 13:04 Microbiology: Microbiology 02/15/21 13:09 Peripheral/Venous Blood Culture - Preliminary 02/15/21 13:09 Peripheral/Venous Blood Culture - Preliminary [place]/IV: Voiding Method Indwelling Catheter Active Medications - Current Medications Current Medications: Generic Name Dose Route Start Last Admin Trade Name Freq PRN Reason Stop Dose Admin Acetaminophen 650 mg 02/15/21 18:48 Acetaminophen 325 Mg Tab PO Q4H PRN Pain MILD(1-3)/Fever >100.5/AC Ascorbic Acid 500 mg 02/15/21 22:00 02/15/21 22:39 Ascorbic Acid 500 Mg Tab PO 500 mg BID BOY Administration Dextrose 50 ml 02/15/21 14:00 Dextrose 50% In Water (25gm) 50 Ml Syringe IV Q30MIN PRN Hypoglycemia Protocol Fentanyl 50 mcg 02/15/21 13:10 Fentanyl 100 Mcg/2 Ml Inj IV Q10MIN PRN ANALGESIA Heparin Sodium (Porcine) 5,000 unit 02/15/21 22:00 02/15/21 22:18 Heparin 5,000 Unit/1 Ml Vial SUB-Q 5,000 unit Q12HR BOY Administration Hydromorphone HCl 0.5 mg 02/15/21 18:48 Hydromorphone 1 Mg/1 Ml Inj IV Q3H PRN Pain , Severe (7-10) Hydrophilic Ointment 1 applic 02/15/21 13:10 Lip Therapy Vaseline TP Q2HR PRN Dry Lips Fentanyl Citrate 2,000 mcg in 100 mls @ 3.856 mls/hr 02/15/21 14:00 Fentanyl Drip Premix IV TITR BOY Protocol 1 MCG/KG/HR Pantoprazole Sodium 80 mg/ 100 mls @ 10 mls/hr 02/15/21 14:00 Sodium Chloride IV DIRECT BOY 8 MG/HR Sodium Chloride 100 mls @ 999 mls/hr 02/15/21 14:38 Nacl 0.9% IV RAFIQ PRN Hypotension Propofol 1,000 mg in 100 mls @ 2.313 mls/hr 02/15/21 17:00 Diprivan 10 Mg/Ml IV TITR BOY Protocol 5 MCG/KG/MIN Sodium Chloride 1,000 mls @ 75 mls/hr 02/15/21 19:00 Nacl 0.9% 1000 Ml IV DIRECT BOY NORepinephrine/NS 8 MG-250 ML 8 mg in 250 mls @ 3.75 mls/hr 02/15/21 21:00 02/16/21 09:13 Norepinephrine/Ns 8 Mg-250 Ml (Double Conc) IV 4 mcg/min TITRATE BOY 7.5 mls/hr Titration Protocol 2 MCG/MIN Azithromycin 500 mg in 250 mls @ 250 mls/hr 02/15/21 21:00 02/15/21 22:19 Zithromax/Ns IV 02/20/21 20:59 250 mls/hr Q24H BOY Administration Sodium Bicarbonate 150 meq/ 1,150 mls @ 100 mls/hr 02/15/21 21:00 02/15/21 23:03 Dextrose IV 02/18/21 08:29 100 mls/hr DIRECT BOY Administration Sodium Chloride 500 mls @ 0 mls/hr 02/16/21 07:25 Nacl 0.9% 500 Ml IV 02/16/21 23:59 ONCE BOY As Directed Ceftriaxone Sodium 2 gm in 100 mls @ 200 mls/hr 02/16/21 22:00 Rocephin/Ns 2 Gm/100 Ml IV 02/19/21 22:29 Q24H BOY Protocol Methylprednisolone Sodium Succinate 40 mg 02/15/21 22:00 02/16/21 06:31 Methylprednisolone Sod Succinate 40 Mg/1 Ml Inj IV 40 mg Q8H BOY Administration Morphine Sulfate 2 mg 02/15/21 18:48 Morphine 2 Mg/1 Ml Inj IV Q4H PRN Pain, Moderate (4-6) Multi-Ingred Cream/Lotion/Oil/Oint 1 applic 02/15/21 13:10 Mineral Oil/Petrolatum, White Ophth Oint 3.5 Gm OU Q4HR PRN Dry Eye(s) Ondansetron HCl 4 mg 02/15/21 18:48 Ondansetron 4 Mg/2 Ml Inj IV Q8H PRN Nausea And Vomiting Senna/Docusate Sodium 1 tab 02/15/21 22:00 02/15/21 22:20 Sennosides/Docusate Sodium 8.6/50 Mg Tab FEEDTUBE Not Given BID BOY Sodium Chloride 10 ml 02/15/21 22:00 02/15/21 22:20 Sodium Chloride 0.9% 10 Ml Flush Syringe IV 10 ml BID BOY Administration Sodium Chloride 10 ml 02/15/21 18:48 Sodium Chloride 0.9% 10 Ml Flush Syringe IV PRN PRN LINE FLUSH Zinc Sulfate 220 mg 02/15/21 22:00 02/15/21 22:39 Zinc Sulfate 220 Mg Cap PO 220 mg BID BOY Administration
[2021-02-16] MEDS ORDERED: SODIUM CHLORIDE 0.9% 100 ML IV PRN ×2 (11:00→11:09)
[2021-02-16] MEDS: HEPARIN 5,000 UNIT/1 ML VIAL SUB-Q SCH ×2 (11:00→21:48)
[2021-02-16] MEDS ORDERED: SODIUM BICARBONATE 150 MEQ in DEXTROSE 5% IN WATER 1,000 ML IV SCH (12:00)
[2021-02-16] MEDS: SENNOSIDES/DOCUSATE SODIUM 8.6/50 MG TAB FEEDTUBE SCH ×2 (12:07→21:47)
[2021-02-16] MEDS: ASCORBIC ACID 500 MG TAB PO SCH ×2 (12:08→21:49)
[2021-02-16] MEDS: ZINC SULFATE 220 MG CAP PO SCH ×2 (12:09→21:49)
--- NOTE | 2021-02-16 12:26 | Consultation ---
History of Present Illness Consult date: 02/16/21 Requesting physician: ANNI BREAUX Consult reason: cardiac arrest History of present illness: Patient is a 30-year-old male with unknown past medical history who was found to be unresponsive at home yesterday. History is taken from the chart due to patient being intubated at time of interview. Per documentation and conversation with the ED staff patient last week patient reported eating a sandwich and developed swelling throughout body. The next day he developed a cough and thought he was developing an allergic reaction. Yesterday the patient was found by sister unresponsive for an unknown amount of time EMS arrived and found patient pulseless with dilated pupils. ACLS protocol was initiated and patient was intubated. Patient transported to [facility] in the ED emergent transthoracic echocardiogram was performed which demonstrated pericardial effusion and a possible clot in the right atrium and right ventricle. Also LV hypokinesis and right ventricular dyskinesis. Furthermore in the ED patient received numerous rounds of epi ROSC was obtained however ultimately patient's downtime is unknown patient was also found to be severely anemic and severely hyperkalemic with a potassium of 9.7. Neurology, nephrology, and cardiology are all consulted patient is previously unknown to our practice. Cardiology consulted for cardiac arrest. Past History Past Medical History: other (unknwon) Past Surgical History: Other (unknown) Social history: lives with family, full code Family history: hypertension Medications and Allergies Allergies Allergy/AdvReac Type Severity Reaction Status Date / Time Unable to Assess Allergy Verified 02/15/21 12:34 Active Meds: Active Medications Acetaminophen (Acetaminophen 325 Mg Tab) 650 mg PO Q4H PRN PRN Reason: Pain MILD(1-3)/Fever >100.5/AC Ascorbic Acid (Ascorbic Acid 500 Mg Tab) 500 mg PO BID [facility] Last Admin: 02/16/21 12:08 Dose: Not Given Documented by: Dextrose (Dextrose 50% In Water (25gm) 50 Ml Syringe) 50 ml IV Q30MIN PRN; Protocol PRN Reason: Hypoglycemia Fentanyl (Fentanyl 100 Mcg/2 Ml Inj) 50 mcg IV Q10MIN PRN PRN Reason: ANALGESIA Heparin Sodium (Porcine) (Heparin 5,000 Unit/1 Ml Vial) 5,000 unit SUB-Q Q12HR [facility] Last Admin: 02/15/21 22:18 Dose: 5,000 unit Documented by: Hydromorphone HCl (Hydromorphone 1 Mg/1 Ml Inj) 0.5 mg IV Q3H PRN PRN Reason: Pain , Severe (7-10) Hydrophilic Ointment (Lip Therapy Vaseline) 1 applic TP Q2HR PRN PRN Reason: Dry Lips Fentanyl Citrate (Fentanyl Drip Premix) 2,000 mcg in 100 mls @ 3.856 mls/hr IV TITR BOY; Protocol Pantoprazole Sodium 80 mg/ (Sodium Chloride) 100 mls @ 10 mls/hr IV DIRECT BOY Propofol (Diprivan 10 Mg/Ml) 1,000 mg in 100 mls @ 2.313 mls/hr IV TITR BOY; Protocol Sodium Chloride (Nacl 0.9% 1000 Ml) 1,000 mls @ 75 mls/hr IV DIRECT BOY NORepinephrine/NS 8 MG-250 ML (Norepinephrine/Ns 8 Mg-250 Ml (Double Conc)) 8 m g in 250 mls @ 3.75 mls/hr IV TITRATE BOY; Protocol Last Titration: 02/16/21 12:00 Dose: 0 mcg/min, 0 mls/hr Documented by: Azithromycin (Zithromax/Ns) 500 mg in 250 mls @ 250 mls/hr IV Q24H BOY Stop: 02/20/21 20:59 Last Admin: 02/15/21 22:19 Dose: 250 mls/hr Documented by: Sodium Chloride (Nacl 0.9% 500 Ml) 500 mls @ 0 mls/hr IV ONCE BOY Stop: 02/16/21 23:59 Ceftriaxone Sodium (Rocephin/Ns 2 Gm/100 Ml) 2 gm in 100 mls @ 200 mls/hr IV Q24H BOY; Protocol Stop: 02/19/21 22:29 Sodium Bicarbonate 150 meq/ (Dextrose) 1,150 mls @ 100 mls/hr IV DIRECT BOY Stop: 02/17/21 23:29 Sodium Chloride (Nacl 0.9%) 100 mls @ 999 mls/hr IV RAFIQ PRN PRN Reason: Hypotension Methylprednisolone Sodium Succinate (Methylprednisolone Sod Succinate 40 Mg/1 Ml Inj) 40 mg IV Q8H BOY Last Admin: 02/16/21 06:31 Dose: 40 mg Documented by: Morphine Sulfate (Morphine 2 Mg/1 Ml Inj) 2 mg IV Q4H PRN PRN Reason: Pain, Moderate (4-6) Multi-Ingred Cream/Lotion/Oil/Oint (Mineral Oil/Petrolatum, White Ophth Oint 3.5 Gm) 1 applic OU Q4HR PRN PRN Reason: Dry Eye(s) Ondansetron HCl (Ondansetron 4 Mg/2 Ml Inj) 4 mg IV Q8H PRN PRN Reason: Nausea And Vomiting Senna/Docusate Sodium (Sennosides/Docusate Sodium 8.6/50 Mg Tab) 1 tab FEEDTUBE BID [facility] Last Admin: 02/16/21 12:07 Dose: Not Given Documented by: Sodium Chloride (Sodium Chloride 0.9% 10 Ml Flush Syringe) 10 ml IV BID [facility] Last Admin: 02/16/21 12:07 Dose: Not Given Documented by: Sodium Chloride (Sodium Chloride 0.9% 10 Ml Flush Syringe) 10 ml IV PRN PRN PRN Reason: LINE FLUSH Zinc Sulfate (Zinc Sulfate 220 Mg Cap) 220 mg PO BID [facility] Last Admin: 02/16/21 12:09 Dose: Not Given Documented by: Review of Systems ROS unobtainable: due to endotracheal tube, due to mental status Physical Examination Vital Signs Pulse Ox 100 02/15/21 12:28 General appearance: other (intubated) HEENT: Positive: Mucus Membranes Dry, Other Neck: Positive: trachea midline Cardiac: Positive: Reg Rate and Rhythm Lungs: Positive: Ventilated Respirations Neuro: Positive: Other (unable to assess) Abdomen: Positive: Active Bowel Sounds Skin: Negative: Rash, Suspicious Lesions, Ulceration Extremities: Present: upper extr. pulses, edema (anasarcia), Cool Results 02/15/21 23:23 02/15/21 23:23 Cardiac Enzymes 02/15/21 02/15/21 02/15/21 Range/Units 13:04 13:04 13:10 AST 605 H (5-40) units/L Lactate Dehydrogenase 1369 H Cancelled (91-180) units/L CK-MB (CK-2) 20.8 H (0.0-4.0) ng/mL 02/15/21 02/15/21 Range/Units 16:10 19:02 AST (5-40) units/L Lactate Dehydrogenase (91-180) units/L CK-MB (CK-2) 50.0 H 54.3 H (0.0-4.0) ng/mL Coagulation 02/15/21 Range/Units 13:04 PT 19.9 H (12.2-14.9) Sec. INR 1.53 H (0.87-1.13) APTT 89.3 H* (24.2-36.6) Sec. Lipids 02/15/21 Range/Units 13:10 Triglycerides 62 (2-149) mg/dL Cholesterol 82 (50-199) mg/dL HDL Cholesterol 27 L (40-59) mg/dL Cholesterol/HDL Ratio 3.03 % CBC 02/15/21 02/15/21 02/15/21 Range/Units 13:04 19:02 23:23 WBC 2.3 L 5.1 5.4 (4.5-11.0) K/mm3 RBC 1.54 L 2.29 L 2.31 L (3.65-5.03) M/mm3 Hgb 3.5 L* 5.7 L* 5.8 L* (11.8-15.2) gm/dl Hct 11.8 L* 18.1 L* D 18.5 L* (35.5-45.6) % Plt Count 169 156 147 (140-440) K/mm3 Comprehensive Metabolic Panel 02/15/21 02/15/21 02/15/21 Range/Units 13:04 13:10 19:02 Sodium 142 Cancelled 140 (137-145) mmol/L Potassium 9.7 H* Cancelled 5.5 H D (3.6-5.0) mmol/L Chloride 111.2 H Cancelled 106.3 (98-107) mmol/L Carbon Dioxide 13 L Cancelled 16 L (22-30) mmol/L BUN 73 H Cancelled 46 H (9-20) mg/dL Creatinine 6.5 H Cancelled 4.5 H (0.8-1.3) mg/dL Glucose 20 L* Cancelled 117 H (75-100) mg/dL Calcium 12.0 H Cancelled 8.3 L D (8.4-10.2) mg/dL AST 605 H (5-40) units/L ALT 406 H (7-56) units/L Alkaline Phosphatase 85 (35-129) units/L Total Protein 5.9 L (6.3-8.2) g/dL Albumin 1.5 L (3.9-5) g/dL 02/15/21 Range/Units 23:23 Sodium 140 (137-145) mmol/L Potassium 5.4 H (3.6-5.0) mmol/L Chloride 107.7 H (98-107) mmol/L Carbon Dioxide 15 L (22-30) mmol/L BUN 52 H (9-20) mg/dL Creatinine 4.8 H (0.8-1.3) mg/dL Glucose 87 (75-100) mg/dL Calcium 7.6 L (8.4-10.2) mg/dL AST (5-40) units/L ALT (7-56) units/L Alkaline Phosphatase (35-129) units/L Total Protein (6.3-8.2) g/dL Albumin (3.9-5) g/dL - Imaging and Cardiology Echo: pending EKG interpretations - Telemetry EKG Rhythm: Sinus Rhythm - EKG Sinus rhythms and dysrhythmias: sinus rhythm Repolarization changes or abnormalities: Suggestive of hyperkalemia Assessment and Plan Patient is a 30-year-old male with unknown past medical history who was found to be unresponsive at home s/p Cardiac arrest requiring pressors Bilateral PNA Anemia NSTEMI Hyperkalemia Acute renal failure on HD- nephrology consulted Anoxic Brain Injury- Neuro consulted hypoglycemia Plan: EKG sinus 85 No acute ischemic changes. Troponins noted to be elevated in setting of acute renal failure and following multiple prolong rounds of ACLS protocols BNP noted to be elevated. Echo pending Patient currently intubated and sedated on pressors Prognosis very poor Patient seen in conjunction with Dr. Stephenson who agrees with plan of care. Will continue to follow - Patient Problems (1) Anoxic brain injury Current Visit: Yes Status: Acute (2) Acute respiratory failure Current Visit: Yes Status: Acute (3) Acute renal failure Current Visit: Yes Status: Acute (4) Bilateral pneumonia Current Visit: Yes Status: Acute Qualifiers: Pneumonia type: due to unspecified organism (5) Cardiac arrest Current Visit: Yes Status: Acute (6) Elevated brain natriuretic peptide (BNP) level Current Visit: Yes Status: Acute (7) Hyperkalemia Current Visit: Yes Status: Acute (8) Hypothermia Current Visit: Yes Status: Acute (9) NSTEMI (non-ST elevated myocardial infarction) Current Visit: Yes Status: Acute (10) Severe anemia Current Visit: Yes Status: Acute
[2021-02-16] MEDS ORDERED: SIMPLE SYRUP 15 ML FEEDTUBE PRN ×2 (14:00)
[2021-02-16] MEDS ORDERED: SODIUM BICARBONATE 325 MG TAB FEEDTUBE PRN (14:00)
[2021-02-16] MEDS ORDERED: LIPASE 10,500/PROTEASE 25,000/AMYLASE 43,750 (UNITS) DR CAP FEEDTUBE PRN (14:00)
--- NOTE | 2021-02-16 14:37 | Progress Note ---
Assessment and Plan Acute hypoxemic respiratory failure Cardiac arrest with ROSC Bilateral pneumonia PUI COVID-19 infection Acute kidney injury Severe hyperkalemia Severe anemia Possible hypothyroidism Severe metabolic acidosis Oropharyngeal dysphagia Elevated serum transaminase Elevated serum troponin post-cardiac resuscitation - neurology evaluation ongoing - for MRI & EEG - continue HD/UF per nephrology precription for toxin and volume clearance - continue compensatory hyperventilation for acidosis - continue Daily SAT and SBT assessment as tolerated - continue to wean supplemental oxygen for target O2 sat's > 90% acutely - VAP bundle addressed - continue lung protective strategies - continue bronchodilators with pulmonary hygiene per RT - wean per pulmonary driven protocols otherwise - avoid nephrotoxins, renally dose all medications - continue accuchecks with glycemic control per SSI (While critically ill target blood glucose of 140-180 mg/dL; avoid hypoglycemia) - sedation prn for target RASS 0 to -1 - AB's per ID rec's - prn analgesia per CPOT score - Maintenance of sleep-wake cycle, avoid delirium - continue enteral nutritional support at goal rate as tolerated - G.I. & VTE prophylaxis - PT/OT/ROM exercises - continue mobility protocols for pressure ulcer prophylaxis - Monitor hemodynamics closely - continue other care per attending / other consultants - discharge planning ongoing concurrently COVID SPECIFIC INTERVENTIONS - COVID-19 test result pending - continue empiric isolation .... Re-evaluate in am & prn CONDITION: CRITICAL PROGNOSIS: GUARDED CODE STATUS: FULL CODE The high probability of a clinically significant, sudden or life-threatening deterioration of the [respiratory, cardiovascular, renal & neurologic] system(s) required my full and direct attention, intervention and personal management. The aggregate critical care time was [33] minutes without overlap. Time includes spent on; [x] Data Review and interpretation [x] Patient assessment and monitoring of vital signs [x] Documentation [x] Medication orders and management Subjective Date of service: 02/16/21 Principal diagnosis: Ac hypoxemic resp failure; Cardiac arrest; PNA; ZAC; PUI COVID-19 infection Interval history: Patient is seen today for: Acute hypoxemic respiratory failure; Cardiac arrest with ROSC; Pneumonia; ZAC; PUI COVID-19 infection Seen and examined at bedside; 24hour events reviewed; nursing and respiratory care staff consulted; no adverse overnight events reported to me; resting in bed; AMS is persistent; tolerated Dialysis yesterday; remains on MVS; still with severe metabolic acidosis Objective Vital Signs - 12hr 11/01/21 11/01/21 11/01/21 02:38 03:08 03:53 Temperature 97.6 F 97.7 F Pulse Rate 100 H Respiratory 22 Rate Blood Pressure 134/87 O2 Sat by Pulse 100 Oximetry 02/16/21 02/16/21 02/16/21 04:00 04:20 04:40 Temperature Pulse Rate 99 H 99 H 98 H Respiratory 21 13 20 Rate Blood Pressure 134/87 139/93 139/99 O2 Sat by Pulse 100 100 100 Oximetry 02/16/21 02/16/21 02/16/21 05:00 05:20 05:40 Temperature Pulse Rate 97 H 93 H 95 H Respiratory 21 17 24 Rate Blood Pressure 145/100 137/92 111/71 O2 Sat by Pulse 100 100 100 Oximetry 02/16/21 02/16/21 02/16/21 05:53 06:00 06:20 Temperature Pulse Rate 94 H 93 H Respiratory 23 16 Rate Blood Pressure 130/88 132/91 O2 Sat by Pulse 100 100 100 Oximetry 02/16/21 02/16/21 02/16/21 06:40 07:00 07:15 Temperature Pulse Rate 93 H 92 H 92 H Respiratory 16 16 40 H Rate Blood Pressure 129/89 134/94 130/90 O2 Sat by Pulse 100 100 100 Oximetry 02/16/21 02/16/21 02/16/21 07:30 07:53 08:01 Temperature Pulse Rate 91 H 90 90 Respiratory 28 H 15 28 H Rate Blood Pressure 130/90 134/94 134/94 O2 Sat by Pulse 100 100 100 Oximetry 02/16/21 02/16/21 02/16/21 08:15 08:31 08:45 Temperature Pulse Rate 90 89 89 Respiratory 17 26 H 19 Rate Blood Pressure 135/96 144/104 145/104 O2 Sat by Pulse 100 100 100 Oximetry 02/16/21 02/16/21 02/16/21 09:01 09:15 09:28 Temperature Pulse Rate 89 88 88 Respiratory 11 L 26 H Rate Blood Pressure 141/104 144/105 141/101 O2 Sat by Pulse 100 100 100 Oximetry 02/16/21 02/16/21 02/16/21 09:31 09:45 10:00 Temperature Pulse Rate 88 88 87 Respiratory 24 18 24 Rate Blood Pressure 139/102 141/101 141/101 O2 Sat by Pulse 100 100 100 Oximetry 02/16/21 02/16/21 02/16/21 10:15 10:31 10:45 Temperature Pulse Rate 87 86 85 Respiratory 28 H 21 17 Rate Blood Pressure 140/103 139/108 134/97 O2 Sat by Pulse 100 100 100 Oximetry 02/16/21 02/16/21 02/16/21 11:01 11:15 11:31 Temperature Pulse Rate 85 85 82 Respiratory 18 18 22 Rate Blood Pressure 129/96 134/96 142/102 O2 Sat by Pulse 100 100 100 Oximetry 02/16/21 02/16/21 02/16/21 11:45 12:01 12:50 Temperature Pulse Rate 82 81 82 Respiratory 14 29 H Rate Blood Pressure 134/97 134/96 134/100 O2 Sat by Pulse 100 100 100 Oximetry 02/16/21 14:23 Temperature Pulse Rate 81 Respiratory Rate Blood Pressure 149/116 O2 Sat by Pulse Oximetry Constitutional: no acute distress, other (young male without significant patient ventilator dyssynchrony) Eyes: non-icteric ENT: oropharynx moist, other (ETT 24 cm SAMPSON) Neck: supple, no lymphadenopathy, no JVD Effort: mildly labored Ascultation: Bilateral: rhonchi Percussion: Bilateral: not dull Cardiovascular: regular rate and rhythm Gastrointestinal: normoactive bowel sounds, soft, non-tender, non-distended Integumentary: normal Extremities: no cyanosis, pulses normal, no ischemia or petechiae, edema (1++) Neurologic: pupils equal and round (fixed at 6-7 mm), unable to assess Psychiatric: other (unable to assess re: AMS) CBC and BMP: 02/16/21 20:08 02/16/21 20:08 ABG, PT/INR, D-dimer: ABG ABG pH 7.240 pH Units (7.350-7.450) L 02/16/21 09:30 POC ABG pCO2 65.8 mmHg (32.0-48.0) H 02/15/21 20:26 ABG pCO2 39.7 mm Hg 02/16/21 09:30 POC ABG pO2 88.5 mmHg (83-108) 02/15/21 20:26 ABG pO2 283.7 mm Hg (80.0-90.0) H 02/16/21 09:30 POC ABG HCO3 17.6 02/15/21 20:26 ABG O2 Saturation 99.4 % (95.0-99.0) H 02/16/21 09:30 PT/INR, D-dimer PT 19.9 Sec. (12.2-14.9) H 02/15/21 13:04 INR 1.53 (0.87-1.13) H 02/15/21 13:04 D-Dimer 3584.01 ng/mlDDU (0-234) H 02/15/21 13:04 Abnormal lab findings: Abnormal Labs 02/15/21 02/15/21 02/15/21 13:02 13:04 13:04 WBC 2.3 L RBC 1.54 L Hgb 3.5 L* Hct 11.8 L* MCV 77 L MCH 23 L MCHC 30 L RDW 22.3 H Seg Neuts % (Manual) 77.0 H Lymphocytes % (Manual) 12.0 L Nucleated RBC % 2.0 H Lymphocytes # (Manual) 0.3 L PT 19.9 H INR 1.53 H APTT 89.3 H* D-Dimer 3584.01 H ABG pH POC ABG pCO2 ABG pO2 ABG HCO3 ABG O2 Saturation ABG Base Excess ABG Hemoglobin ABG Oxyhemoglobin ABG Sodium ABG Potassium ABG Chloride ABG Glucose Carboxyhemoglobin Potassium Chloride Carbon Dioxide BUN Creatinine Glucose POC Glucose Lactic Acid 12.40 H* Calcium Phosphorus Ferritin AST ALT Lactate Dehydrogenase Total Creatine Kinase CK-MB (CK-2) CK-MB (CK-2) Rel Index Troponin T C-Reactive Protein NT-Pro-B Natriuret Pep Total Protein Albumin HDL Cholesterol TSH Arterial Blood Glucose Urine WBC (Auto) Salicylates Acetaminophen Crossmatch 02/15/21 02/15/21 02/15/21 13:04 13:04 13:04 WBC RBC Hgb Hct MCV MCH MCHC RDW Seg Neuts % (Manual) Lymphocytes % (Manual) Nucleated RBC % Lymphocytes # (Manual) PT INR APTT D-Dimer ABG pH POC ABG pCO2 ABG pO2 ABG HCO3 ABG O2 Saturation ABG Base Excess ABG Hemoglobin ABG Oxyhemoglobin ABG Sodium ABG Potassium ABG Chloride ABG Glucose Carboxyhemoglobin Potassium 9.7 H* Chloride 111.2 H Carbon Dioxide 13 L BUN 73 H Creatinine 6.5 H Glucose 20 L* POC Glucose Lactic Acid Calcium 12.0 H Phosphorus Ferritin AST 605 H ALT 406 H Lactate Dehydrogenase 1369 H Total Creatine Kinase CK-MB (CK-2) CK-MB (CK-2) Rel Index Troponin T C-Reactive Protein 5.30 H NT-Pro-B Natriuret Pep 041313 H Total Protein 5.9 L Albumin 1.5 L HDL Cholesterol TSH Arterial Blood Glucose Urine WBC (Auto) Salicylates Acetaminophen Crossmatch See Detail 02/15/21 02/15/21 02/15/21 13:04 13:04 13:04 WBC RBC Hgb Hct MCV MCH MCHC RDW Seg Neuts % (Manual) Lymphocytes % (Manual) Nucleated RBC % Lymphocytes # (Manual) PT INR APTT D-Dimer ABG pH POC ABG pCO2 ABG pO2 ABG HCO3 ABG O2 Saturation ABG Base Excess ABG Hemoglobin ABG Oxyhemoglobin ABG Sodium ABG Potassium ABG Chloride ABG Glucose Carboxyhemoglobin Potassium Chloride Carbon Dioxide BUN Creatinine Glucose POC Glucose Lactic Acid Calcium Phosphorus Ferritin AST ALT Lactate Dehydrogenase Total Creatine Kinase CK-MB (CK-2) CK-MB (CK-2) Rel Index Troponin T C-Reactive Protein NT-Pro-B Natriuret Pep Total Protein Albumin HDL Cholesterol TSH 7.000 H Arterial Blood Glucose Urine WBC (Auto) Salicylates < 0.3 L Acetaminophen 5.0 L Crossmatch 02/15/21 02/15/21 02/15/21 13:07 13:08 13:10 WBC RBC Hgb Hct MCV MCH MCHC RDW Seg Neuts % (Manual) Lymphocytes % (Manual) Nucleated RBC % Lymphocytes # (Manual) PT INR APTT D-Dimer ABG pH POC ABG pCO2 ABG pO2 ABG HCO3 ABG O2 Saturation ABG Base Excess ABG Hemoglobin ABG Oxyhemoglobin ABG Sodium ABG Potassium ABG Chloride ABG Glucose Carboxyhemoglobin Potassium Chloride Carbon Dioxide BUN Creatinine Glucose POC Glucose 11 L 13 L Lactic Acid Calcium Phosphorus Ferritin AST ALT Lactate Dehydrogenase Total Creatine Kinase 462 H CK-MB (CK-2) 20.8 H CK-MB (CK-2) Rel Index 4.5 H Troponin T 0.554 H* C-Reactive Protein NT-Pro-B Natriuret Pep Total Protein Albumin HDL Cholesterol 27 L TSH Arterial Blood Glucose Urine WBC (Auto) Salicylates Acetaminophen Crossmatch 02/15/21 02/15/21 02/15/21 14:23 16:10 17:30 WBC RBC Hgb Hct MCV MCH MCHC RDW Seg Neuts % (Manual) Lymphocytes % (Manual) Nucleated RBC % Lymphocytes # (Manual) PT INR APTT D-Dimer ABG pH 6.845 L* POC ABG pCO2 ABG pO2 296.7 H ABG HCO3 12.4 L ABG O2 Saturation 99.3 H ABG Base Excess -18.6 L ABG Hemoglobin ABG Oxyhemoglobin ABG Sodium ABG Potassium ABG Chloride ABG Glucose Carboxyhemoglobin Potassium Chloride Carbon Dioxide BUN Creatinine Glucose POC Glucose Lactic Acid Calcium Phosphorus Ferritin AST ALT Lactate Dehydrogenase Total Creatine Kinase 2102 H CK-MB (CK-2) 50.0 H CK-MB (CK-2) Rel Index Troponin T 1.290 H* D C-Reactive Protein NT-Pro-B Natriuret Pep Total Protein Albumin HDL Cholesterol TSH Arterial Blood Glucose Urine WBC (Auto) 55.0 H Salicylates Acetaminophen Crossmatch 02/15/21 02/15/21 02/15/21 19:02 19:02 19:02 WBC RBC 2.29 L Hgb 5.7 L* Hct 18.1 L* D MCV 79 L MCH 25 L MCHC RDW 22.0 H Seg Neuts % (Manual) 79.0 H Lymphocytes % (Manual) 1.0 L Nucleated RBC % Lymphocytes # (Manual) 0.1 L PT INR APTT D-Dimer ABG pH POC ABG pCO2 ABG pO2 ABG HCO3 ABG O2 Saturation ABG Base Excess ABG Hemoglobin ABG Oxyhemoglobin ABG Sodium ABG Potassium ABG Chloride ABG Glucose Carboxyhemoglobin Potassium Chloride Carbon Dioxide BUN Creatinine Glucose POC Glucose Lactic Acid 5.90 H* Calcium Phosphorus Ferritin AST ALT Lactate Dehydrogenase Total Creatine Kinase 2992 H CK-MB (CK-2) 54.3 H CK-MB (CK-2) Rel Index Troponin T 1.150 H* C-Reactive Protein NT-Pro-B Natriuret Pep Total Protein Albumin HDL Cholesterol TSH Arterial Blood Glucose Urine WBC (Auto) Salicylates Acetaminophen Crossmatch 02/15/21 02/15/21 02/15/21 19:02 20:26 23:23 WBC RBC 2.31 L Hgb 5.8 L* Hct 18.5 L* MCV 80 L MCH 25 L MCHC 31 L RDW 21.1 H Seg Neuts % (Manual) 82.0 H Lymphocytes % (Manual) 1.0 L Nucleated RBC % 8.0 H Lymphocytes # (Manual) 0.1 L PT INR APTT D-Dimer ABG pH 7.044 L POC ABG pCO2 65.8 H ABG pO2 ABG HCO3 ABG O2 Saturation ABG Base Excess ABG Hemoglobin 6.0 L ABG Oxyhemoglobin 91.1 L ABG Sodium 135.9 L ABG Potassium 5.0 H ABG Chloride 108.0 H ABG Glucose 106 H Carboxyhemoglobin 0.4 L Potassium 5.5 H D Chloride Carbon Dioxide 16 L BUN 46 H Creatinine 4.5 H Glucose 117 H POC Glucose Lactic Acid Calcium 8.3 L D Phosphorus Ferritin AST ALT Lactate Dehydrogenase Total Creatine Kinase CK-MB (CK-2) CK-MB (CK-2) Rel Index Troponin T C-Reactive Protein NT-Pro-B Natriuret Pep Total Protein Albumin HDL Cholesterol TSH Arterial Blood Glucose 106 H Urine WBC (Auto) Salicylates Acetaminophen Crossmatch 02/15/21 02/15/21 02/15/21 23:23 23:23 23:23 WBC RBC Hgb Hct MCV MCH MCHC RDW Seg Neuts % (Manual) Lymphocytes % (Manual) Nucleated RBC % Lymphocytes # (Manual) PT INR APTT D-Dimer ABG pH POC ABG pCO2 ABG pO2 ABG HCO3 ABG O2 Saturation ABG Base Excess ABG Hemoglobin ABG Oxyhemoglobin ABG Sodium ABG Potassium ABG Chloride ABG Glucose Carboxyhemoglobin Potassium 5.4 H Chloride 107.7 H Carbon Dioxide 15 L BUN 52 H Creatinine 4.8 H Glucose POC Glucose Lactic Acid 5.60 H* Calcium 7.6 L Phosphorus Ferritin 388.1 H AST ALT Lactate Dehydrogenase Total Creatine Kinase CK-MB (CK-2) CK-MB (CK-2) Rel Index Troponin T C-Reactive Protein NT-Pro-B Natriuret Pep Total Protein Albumin HDL Cholesterol TSH Arterial Blood Glucose Urine WBC (Auto) Salicylates Acetaminophen Crossmatch 02/15/21 02/15/21 02/16/21 23:23 23:23 09:30 WBC RBC Hgb Hct MCV MCH MCHC RDW Seg Neuts % (Manual) Lymphocytes % (Manual) Nucleated RBC % Lymphocytes # (Manual) PT INR APTT D-Dimer ABG pH 7.240 L POC ABG pCO2 ABG pO2 283.7 H ABG HCO3 16.6 L ABG O2 Saturation 99.4 H ABG Base Excess -10.0 L ABG Hemoglobin 7.6 L ABG Oxyhemoglobin ABG Sodium ABG Potassium ABG Chloride ABG Glucose Carboxyhemoglobin Potassium Chloride Carbon Dioxide BUN Creatinine Glucose POC Glucose Lactic Acid Calcium Phosphorus 9.60 H Ferritin AST ALT Lactate Dehydrogenase Total Creatine Kinase CK-MB (CK-2) CK-MB (CK-2) Rel Index Troponin T C-Reactive Protein 6.80 H NT-Pro-B Natriuret Pep Total Protein Albumin HDL Cholesterol TSH Arterial Blood Glucose Urine WBC (Auto) Salicylates Acetaminophen Crossmatch Chest x-ray: image reviewed (persistent cardiomegaly and stable bilateral infiltrates) Allied health notes reviewed: nursing
[2021-02-16 20:25] LABS: Hematocrit 29.4 % (35.5-45.6); Hemoglobin 9.5 gm/dl (11.8-15.2); Mean Corpuscular HGB Conc 32 % (32-34); Mean Corpuscular Volume 80 fl (84-94); Platelet Count 103 K/mm3 (140-440); Red Blood Count 3.66 M/mm3 (3.65-5.03)
[2021-02-16 20:27] LABS: Red Cell Distribution Width 20.3 % (13.2-15.2)
[2021-02-16 20:41] LABS: Calcium 6.9 mg/dL (8.4-10.2)
[2021-02-16] MEDS: dilTIAZem/D5W 100 MG/100 ML BAG IV SCH (21:46)
[2021-02-16] MEDS: AZITHROMYCIN/NS 500 MG/250 ML 500 MG/250 ML BAG IV SCH (21:48)
[2021-02-16] MEDS ORDERED: hydrALAZINE 20 MG/1 ML INJ IV ONE (22:00)
[2021-02-16] MEDS ORDERED: cloNIDine TTS 0.3 MG/24 HR PATCH TD SCH (22:00)
[2021-02-16] MEDS ORDERED: cefTRIAXone/NS 2 GM/100 ML 2 GM/100 ML BAG IV SCH (22:00)
[2021-02-16 22:23] LABS: Anisocytosis 1+; Total Cells Counted 100
[2021-02-16 22:24] LABS: Hypochromasia 1+
[2021-02-16 22:25] LABS: Large Platelets Few
[2021-02-16 22:26] LABS: Ovalocytes 1+; Schistocytes Few
[2021-02-16 22:45] LABS: ABG Base Excess -2.7 mmol/L (-2.0-3.0); ABG HCO3 21.3 mmol/L (20.0-26.0); ABG Methemoglobin 0.4 % (0.0-1.5); ABG Oxygen Saturation 99.5 % (95.0-99.0); ABG PH 7.416 pH Units (7.350-7.450)
[2021-02-17] MEDS ORDERED: hydrALAZINE 20 MG/1 ML INJ IV ONE (03:31)
[2021-02-17] MEDS: dilTIAZem/D5W 100 MG/100 ML BAG IV SCH (04:53)
[2021-02-17] MEDS ORDERED: METOPROLOL TARTRATE 5 MG/5 ML INJ IV ONE (05:53)
--- NOTE | 2021-02-17 05:54 | XRay Report ---
CHEST 1 VIEW INDICATION: follow up respiratory failure. COMPARISON: One day prior. FINDINGS: Support devices: Unchanged. Heart: Stable. Lungs/Pleura: Pulmonary opacities have improved. No pneumothorax. IMPRESSION: 1. Interval improvement. Signer Name: Jewel Pereira MD Signed: 02/17/2021 5:49 AM Workstation Name: [id number]
[2021-02-17] MEDS: methylPREDNISolone Sod Succinate 40 MG/1 ML INJ IV SCH ×2 (06:11→14:46)
[2021-02-17] MEDS ORDERED: niCARdipine 50 MG in SODIUM CHLORIDE 0.9% 250ML 230 ML IV SCH (07:00)
[2021-02-17] MEDS ORDERED: hydrALAZINE 20 MG/1 ML INJ IV PRN (07:38)
--- NOTE | 2021-02-17 09:08 | Progress Note ---
Subjective Principal diagnosis: Ac hypoxemic resp failure; Cardiac arrest; PNA; ZAC; PUI COVID-19 infection Interval history: Patient was seen today for follow-up of multiple renal related issues Remains critically ill, has had dialysis yesterday Patient appears to be doing poorly, critically ill, Events of 24 hours noted, Interdisciplinary notes reviewed Currently pending MRI brain flow scan report Remains encephalopathic Events of 24 hours vitals labs intake output medications were reviewed Past medical history: Reviewed Family history: Reviewed Social history: Reviewed Allergies: Reviewed Physical examination: Vitals: Reviewed HEENT: intubated unresponsive Neck: Supple no JVD no thyromegaly Chest: Bilateral crackles Heart: Regular rate and rhythm S1-S2 heard no S3-S4 Abdomen: Soft nontender no voluntary guarding rigidity rebound Extremity: Dry skin less than 1+ peripheral edema Psychiatric: No evidence of agitation and aggression noted Dermatology: No petechial rashes Labs and x-rays: Reviewed from today Assessment and plan #Acute kidney injury resulting from cardiac arrest most likely rule out any possibility of underlying chronic kidney disease admission potassium was 9.7, patient did receive renal placement therapy Given the history of cardiac arrest, clinical scenario is consistent with anoxic brain injury pending MR flow studies there is no emergent indication for renal placement therapy will wait for the results of the flow studies As of today hemoglobin is 9.5 which was 5.8 yesterday platelet count is 103,000 some drop from 147,000 white cell count is up to 13.6, #Severe hyperkalemia has been corrected current potassium is 5.1 #Metabolic acidosis with severely elevated lactic acid level, #Severe hyperphosphatemia, will need to start the patient on binder #Hypocalcemia consider following up with ionized calcium only/ albumin corrected calcium #Status post cardiac arrest, respiratory failure, overall prognosis appears to be very poor, his mortality risk is high, likelihood of survival is very low due to critical illness Renal care plan has been discussed with hospital medicine service If there are any further question from renal standpoint please feel contact me at [phone] time spent in critical care setting 35 minutes We'll continue to follow and make recommendation for renal standpoint Objective - Vital Signs Vital signs: Vital Signs - 12hr 02/16/21 02/16/21 02/16/21 21:11 21:21 21:30 Temperature Pulse Rate 92 H 93 H 93 H Pulse Rate [ From Monitor] Respiratory 30 H 30 H 30 H Rate Blood Pressure 267/164 267/164 256/164 O2 Sat by Pulse 100 100 100 Oximetry 02/16/21 02/16/21 02/16/21 21:40 21:46 21:48 Temperature Pulse Rate 94 H 93 H 93 H Pulse Rate [ From Monitor] Respiratory 30 H Rate Blood Pressure 256/164 256/164 256/164 O2 Sat by Pulse Oximetry 02/16/21 02/16/21 02/16/21 21:50 22:00 22:11 Temperature Pulse Rate 94 H 96 H 96 H Pulse Rate [ From Monitor] Respiratory 29 H 30 H 30 H Rate Blood Pressure 256/164 259/154 256/164 O2 Sat by Pulse Oximetry 02/16/21 02/16/21 02/16/21 22:21 22:30 22:41 Temperature Pulse Rate 93 H 92 H Pulse Rate [ From Monitor] Respiratory 27 H 30 H Rate Blood Pressure 263/146 231/124 263/146 O2 Sat by Pulse 100 100 Oximetry 02/16/21 02/16/21 02/16/21 22:51 22:54 23:01 Temperature Pulse Rate 91 H 91 H 92 H Pulse Rate [ From Monitor] Respiratory 30 H 30 H Rate Blood Pressure 222/109 222/109 201/105 O2 Sat by Pulse 100 100 Oximetry 02/16/21 02/16/21 02/16/21 23:11 23:21 23:30 Temperature Pulse Rate 94 H 90 93 H Pulse Rate [ From Monitor] Respiratory 22 30 H 30 H Rate Blood Pressure 201/105 171/95 159/92 O2 Sat by Pulse 100 100 100 Oximetry 02/16/21 02/16/21 02/16/21 23:41 23:51 23:59 Temperature Pulse Rate 90 89 88 Pulse Rate [ From Monitor] Respiratory 30 H 30 H 30 H Rate Blood Pressure 159/92 151/95 151/95 O2 Sat by Pulse 100 100 100 Oximetry 02/17/21 02/17/21 02/17/21 00:00 00:11 00:21 Temperature 93.6 F L Pulse Rate 85 86 86 Pulse Rate [ 87 From Monitor] Respiratory 30 H 30 H 30 H Rate Blood Pressure 172/106 152/91 158/97 O2 Sat by Pulse 100 100 100 Oximetry 02/17/21 02/17/21 02/17/21 00:30 00:41 00:51 Temperature Pulse Rate 85 85 86 Pulse Rate [ From Monitor] Respiratory 30 H 30 H 30 H Rate Blood Pressure 170/102 170/102 172/106 O2 Sat by Pulse 100 100 100 Oximetry 02/17/21 02/17/21 02/17/21 01:01 01:11 01:21 Temperature Pulse Rate 85 85 87 Pulse Rate [ From Monitor] Respiratory 30 H 30 H 25 H Rate Blood Pressure 156/111 156/111 167/113 O2 Sat by Pulse 100 100 100 Oximetry 02/17/21 02/17/21 02/17/21 01:30 01:41 01:51 Temperature Pulse Rate 85 85 85 Pulse Rate [ From Monitor] Respiratory 30 H 30 H 30 H Rate Blood Pressure 182/115 182/115 188/109 O2 Sat by Pulse 100 100 100 Oximetry 02/17/21 02/17/21 02/17/21 02:00 02:11 02:21 Temperature Pulse Rate 86 85 87 Pulse Rate [ From Monitor] Respiratory 30 H 30 H 29 H Rate Blood Pressure 195/107 200/111 201/112 O2 Sat by Pulse 100 100 100 Oximetry 02/17/21 02/17/21 02/17/21 02:30 02:41 02:51 Temperature Pulse Rate 89 87 86 Pulse Rate [ From Monitor] Respiratory 30 H 30 H 30 H Rate Blood Pressure 201/111 201/111 201/112 O2 Sat by Pulse 100 100 100 Oximetry 02/17/21 02/17/21 02/17/21 02:57 03:00 03:11 Temperature Pulse Rate 88 87 88 Pulse Rate [ From Monitor] Respiratory 30 H 30 H Rate Blood Pressure 202/112 198/116 198/116 O2 Sat by Pulse 100 100 Oximetry 02/17/21 02/17/21 02/17/21 03:21 03:30 03:41 Temperature Pulse Rate 90 90 91 H Pulse Rate [ From Monitor] Respiratory 30 H 30 H 30 H Rate Blood Pressure 195/98 186/95 186/95 O2 Sat by Pulse 100 100 100 Oximetry 02/17/21 02/17/21 02/17/21 03:51 04:00 04:11 Temperature 96.4 F L Pulse Rate 91 H 90 95 H Pulse Rate [ 90 From Monitor] Respiratory 30 H 30 H 30 H Rate Blood Pressure 184/94 174/91 174/91 O2 Sat by Pulse 100 100 100 Oximetry 02/17/21 02/17/21 02/17/21 04:21 04:30 04:41 Temperature Pulse Rate 97 H 99 H 105 H Pulse Rate [ From Monitor] Respiratory 30 H 30 H 18 Rate Blood Pressure 176/94 183/100 183/100 O2 Sat by Pulse 100 100 100 Oximetry 02/17/21 02/17/21 02/17/21 04:51 05:00 05:11 Temperature Pulse Rate 106 H 110 H 114 H Pulse Rate [ From Monitor] Respiratory 30 H 30 H 30 H Rate Blood Pressure 176/94 207/117 207/117 O2 Sat by Pulse 100 99 99 Oximetry 02/17/21 02/17/21 02/17/21 05:21 05:30 05:41 Temperature Pulse Rate 116 H 119 H 122 H Pulse Rate [ From Monitor] Respiratory 30 H 31 H 30 H Rate Blood Pressure 219/122 228/128 228/128 O2 Sat by Pulse 99 99 98 Oximetry 02/17/21 02/17/21 02/17/21 05:51 06:00 06:02 Temperature Pulse Rate 124 H 127 H 126 H Pulse Rate [ From Monitor] Respiratory 20 20 Rate Blood Pressure 221/127 201/111 201/111 O2 Sat by Pulse 98 98 Oximetry 02/17/21 02/17/21 02/17/21 06:11 06:21 06:30 Temperature Pulse Rate 99 H 107 H 108 H Pulse Rate [ From Monitor] Respiratory 30 H 30 H 30 H Rate Blood Pressure 201/111 195/117 205/121 O2 Sat by Pulse 99 99 100 Oximetry 02/17/21 02/17/21 02/17/21 06:41 06:51 07:00 Temperature Pulse Rate 110 H 111 H 111 H Pulse Rate [ From Monitor] Respiratory 30 H 30 H 30 H Rate Blood Pressure 205/121 205/128 206/128 O2 Sat by Pulse 99 100 100 Oximetry 02/17/21 02/17/21 02/17/21 07:11 07:21 07:30 Temperature Pulse Rate 112 H 112 H Pulse Rate [ From Monitor] Respiratory 29 H 29 H 30 H Rate Blood Pressure 206/128 208/130 213/131 O2 Sat by Pulse 100 100 100 Oximetry 02/17/21 02/17/21 02/17/21 07:41 07:45 07:51 Temperature 100.2 F H Pulse Rate 112 H 112 H Pulse Rate [ From Monitor] Respiratory 30 H 28 H Rate Blood Pressure 213/131 217/124 O2 Sat by Pulse 100 100 Oximetry 02/17/21 02/17/21 02/17/21 08:00 08:05 08:11 Temperature Pulse Rate 101 H 108 H 106 H Pulse Rate [ 108 H From Monitor] Respiratory 30 H 22 Rate Blood Pressure 205/117 205/117 205/117 O2 Sat by Pulse 99 99 100 Oximetry 02/17/21 02/17/21 02/17/21 08:21 08:31 08:40 Temperature Pulse Rate 106 H 105 H 103 H Pulse Rate [ From Monitor] Respiratory 30 H 30 H 30 H Rate Blood Pressure 193/103 165/95 165/95 O2 Sat by Pulse 98 98 97 Oximetry 02/17/21 02/17/21 08:51 09:00 Temperature Pulse Rate 103 H 107 H Pulse Rate [ From Monitor] Respiratory 30 H 30 H Rate Blood Pressure 129/79 119/72 O2 Sat by Pulse 95 97 Oximetry - Lab 02/16/21 20:08 02/17/21 10:44 Most recent lab results ABG pH 7.416 pH Units (7.350-7.450) 02/16/21 22:40 ABG pCO2 34.0 mm Hg 02/16/21 22:40 ABG pO2 330.0 mm Hg (80.0-90.0) H 02/16/21 22:40 ABG HCO3 21.3 mmol/L (20.0-26.0) 02/16/21 22:40 ABG O2 Saturation 99.5 % (95.0-99.0) H 02/16/21 22:40 Calcium 6.9 mg/dL (8.4-10.2) L 02/16/21 20:08 Phosphorus 9.60 mg/dL (2.5-4.5) H 02/15/21 23:23 Magnesium 1.80 mg/dL (1.7-2.3) 02/15/21 23:23 Medications & Allergies - Medications Allergies/Adverse Reactions: Allergies Unable to Assess Allergy (Verified 02/15/21 12:34) cardiac arrest Active Medications: Generic Name Dose Route Start Last Admin Trade Name Freq PRN Reason Stop Dose Admin Acetaminophen 650 mg 02/15/21 18:48 Acetaminophen 325 Mg Tab PO Q4H PRN Pain MILD(1-3)/Fever >100.5/AC Lipase/Protease/Amylase 1 each 02/16/21 14:00 Lipase 10,500/Protease 25,000/Amylase 43,750 (Units) Dr Cap FEEDTUBE PRN PRN For Clogged Feeding Tube Clonidine HCl 0.3 mg 02/16/21 22:00 02/16/21 22:54 Clonidine Tts 0.3 Mg/24 Hr Patch TD 0.3 mg Mo BOY Administration Dextrose 50 ml 02/15/21 14:00 Dextrose 50% In Water (25gm) 50 Ml Syringe IV Q30MIN PRN Hypoglycemia Protocol Famotidine 10 mg 02/17/21 10:00 Famotidine 20 Mg/2 Ml Inj IV BID BOY Fentanyl 50 mcg 02/15/21 13:10 Fentanyl 100 Mcg/2 Ml Inj IV Q10MIN PRN ANALGESIA Heparin Sodium (Porcine) 5,000 unit 02/15/21 22:00 02/16/21 21:48 Heparin 5,000 Unit/1 Ml Vial SUB-Q 5,000 unit Q12HR BOY Administration Hydralazine HCl 10 mg 02/17/21 07:38 Hydralazine 20 Mg/1 Ml Inj IV Q4HR PRN Hypertension Hydromorphone HCl 0.5 mg 02/15/21 18:48 Hydromorphone 1 Mg/1 Ml Inj IV Q3H PRN Pain , Severe (7-10) Hydrophilic Ointment 1 applic 02/15/21 13:10 Lip Therapy Vaseline TP Q2HR PRN Dry Lips Fentanyl Citrate 2,000 mcg in 100 mls @ 3.856 mls/hr 02/15/21 14:00 Fentanyl Drip Premix IV TITR BOY Protocol 1 MCG/KG/HR Propofol 1,000 mg in 100 mls @ 2.313 mls/hr 02/15/21 17:00 Diprivan 10 Mg/Ml IV TITR BOY Protocol 5 MCG/KG/MIN Sodium Chloride 1,000 mls @ 75 mls/hr 02/15/21 19:00 Nacl 0.9% 1000 Ml IV DIRECT BOY NORepinephrine/NS 8 MG-250 ML 8 mg in 250 mls @ 3.75 mls/hr 02/15/21 21:00 02/16/21 12:00 Norepinephrine/Ns 8 Mg-250 Ml (Double Conc) IV 0 mcg/min TITRATE BOY 0 mls/hr Titration Protocol 2 MCG/MIN Azithromycin 500 mg in 250 mls @ 250 mls/hr 02/15/21 21:00 02/16/21 21:48 Zithromax/Ns IV 02/20/21 20:59 250 mls/hr Q24H BOY Administration Ceftriaxone Sodium 2 gm in 100 mls @ 200 mls/hr 02/16/21 22:00 02/16/21 21:47 Rocephin/Ns 2 Gm/100 Ml IV 02/19/21 22:29 200 mls/hr Q24H BOY Administration Protocol Sodium Bicarbonate 150 meq/ 1,150 mls @ 100 mls/hr 02/16/21 12:00 Dextrose IV 02/17/21 23:29 DIRECT BOY Sodium Chloride 100 mls @ 999 mls/hr 02/16/21 11:09 Nacl 0.9% IV RAFIQ PRN Hypotension Diltiazem HCl 100 mg in 100 mls @ 5 mls/hr 02/16/21 22:00 02/17/21 08:57 Cardizem/D5w 100mg/100ml IV 10 mg/hr TITR BOY 10 mls/hr Titration Protocol 5 MG/HR Nicardipine HCl 50 mg/ Sodium 250 mls @ 25 mls/hr 02/17/21 07:00 02/17/21 08:39 Chloride IV 7.5 mg/hr TITR BOY 37.5 mls/hr Titration Protocol 5 MG/HR Methylprednisolone Sodium Succinate 40 mg 02/15/21 22:00 02/17/21 06:11 Methylprednisolone Sod Succinate 40 Mg/1 Ml Inj IV 40 mg Q8H BOY Administration Morphine Sulfate 2 mg 02/15/21 18:48 Morphine 2 Mg/1 Ml Inj IV Q4H PRN Pain, Moderate (4-6) Multi-Ingred Cream/Lotion/Oil/Oint 1 applic 02/15/21 13:10 Mineral Oil/Petrolatum, White Ophth Oint 3.5 Gm OU Q4HR PRN Dry Eye(s) Ondansetron HCl 4 mg 02/15/21 18:48 Ondansetron 4 Mg/2 Ml Inj IV Q8H PRN Nausea And Vomiting Senna/Docusate Sodium 1 tab 02/15/21 22:00 02/16/21 21:47 Sennosides/Docusate Sodium 8.6/50 Mg Tab FEEDTUBE Not Given BID BOY Simple Syrup 15 ml 02/16/21 14:00 Simple Syrup 15 Ml FEEDTUBE PRN PRN Hypoglycemia Simple Syrup 30 ml 02/16/21 14:00 Simple Syrup 15 Ml FEEDTUBE PRN PRN Hypoglycemia Sodium Bicarbonate 325 mg 02/16/21 14:00 Sodium Bicarbonate 325 Mg Tab FEEDTUBE PRN PRN For Clogged Feeding Tube Sodium Chloride 10 ml 02/15/21 22:00 02/16/21 21:48 Sodium Chloride 0.9% 10 Ml Flush Syringe IV 10 ml BID BOY Administration Sodium Chloride 10 ml 02/15/21 18:48 Sodium Chloride 0.9% 10 Ml Flush Syringe IV PRN PRN LINE FLUSH
[2021-02-17] MEDS ORDERED: FAMOTIDINE 20 MG/2 ML INJ IV SCH (10:00)
[2021-02-17] MEDS: HEPARIN 5,000 UNIT/1 ML VIAL SUB-Q SCH (10:03)
--- NOTE | 2021-02-17 10:24 | XRay Report ---
ABDOMEN 1 VIEW(S) INDICATION / CLINICAL INFORMATION: sbo. COMPARISON: 02/16/2021 FINDINGS: TUBES / LINES: NG tube tube tip projects over the body the stomach. BOWEL GAS PATTERN/EXTRALUMINAL GAS: No significant abnormality. No pneumatosis or secondary signs of free air. ADDITIONAL FINDINGS: No significant additional findings. IMPRESSION: 1. No acute findings. Signer Name: Jacobo Horton MD Signed: 02/17/2021 10:20 AM Workstation Name: [id number]
[2021-02-17] MEDS ORDERED: ATROPINE 0.1% (1 MG/10 ML) CARDIAC SYRINGE ONE (10:37)
[2021-02-17] MEDS ORDERED: SODIUM BICARB 8.4% 50 MEQ/50 ML SYRINGE IV ONE (10:40)
[2021-02-17] MEDS ORDERED: EPINEPHrine 1 MG/10 ML SYRINGE ONE (10:40)
[2021-02-17] MEDS ORDERED: DOPamine/D5W 800 MG/250 ML DRIP IV ONE (10:40)
--- NOTE | 2021-02-17 11:03 | Progress Note ---
Assessment and Plan Assessment and Plan Assessment and plan: Advance Directives: Yes (Full code) VTE prophylaxis?: Chemical Plan of care discussed with patient/family: Yes - Patient Problems # Post Cardiac arrest S/p cardiac arrest etiology unclear Possible hyperkalemia and severe renal failure may have been the precipitating factors had dialysis yesterday Patient is also severely anemic with a hemoglobin of 3.5-- corrected # Initial Hypothermia -87.1 currently # 97.7 # Septic shock Patient on pressors-Levophed OFF now he is with poorly controlled BP #217/124 currently on Aide drip # Hyperkalemia -Treated aggressively # Severe anemia -Etiology unclear -Probably secondary to chronic kidney disease -Transfused 3 to 4 units of packed red blood cells # Chronic kidney disease -Needs emergent hemodialysis nephrology consulted # Bilateral pneumonia -Patient started on IV IV antibiotics # NSTEMI (non-ST elevated myocardial infarction) -Defer to cardiology # Elevated brain natriuretic peptide (BNP) level -Echocardiogram for ejection fraction function # DVT prophylaxis -On anticoagulation GI prophylaxis over all prognosis is poor Suggest MRI brain and EEG -- pending OFF all sedation correct electrolytes abnormalities and hypothermia pt. today exam showed no brain stem reflexes and with slight decerbration --finding is suggestive of severe brain edema -- MRI is pending will follow Subjective Date of service: 02/17/21 Principal diagnosis: Ac hypoxemic resp failure; Cardiac arrest; PNA; ZAC; PUI COVID-19 infection Interval history: satatus is unchanged he is of sedation intubated .some decerbration is noted L>R MRI is on hold not done BP is better controlled was#217/124 currently on Aide drip. EEG is pending dialysis with Creat #6--3.6 Objective - Vital Sign Vital Signs - 12hr 02/16/21 02/16/21 02/16/21 23:01 23:11 23:21 Temperature Pulse Rate 92 H 94 H 90 Pulse Rate [ From Monitor] Respiratory 30 H 22 30 H Rate Blood Pressure 201/105 201/105 171/95 O2 Sat by Pulse 100 100 100 Oximetry 02/16/21 02/16/21 02/16/21 23:30 23:41 23:51 Temperature Pulse Rate 93 H 90 89 Pulse Rate [ From Monitor] Respiratory 30 H 30 H 30 H Rate Blood Pressure 159/92 159/92 151/95 O2 Sat by Pulse 100 100 100 Oximetry 02/16/21 02/17/21 02/17/21 23:59 00:00 00:11 Temperature 93.6 F L Pulse Rate 88 85 86 Pulse Rate [ 87 From Monitor] Respiratory 30 H 30 H 30 H Rate Blood Pressure 151/95 172/106 152/91 O2 Sat by Pulse 100 100 100 Oximetry 02/17/21 02/17/21 02/17/21 00:21 00:30 00:41 Temperature Pulse Rate 86 85 85 Pulse Rate [ From Monitor] Respiratory 30 H 30 H 30 H Rate Blood Pressure 158/97 170/102 170/102 O2 Sat by Pulse 100 100 100 Oximetry 02/17/21 02/17/21 02/17/21 00:51 01:01 01:11 Temperature Pulse Rate 86 85 85 Pulse Rate [ From Monitor] Respiratory 30 H 30 H 30 H Rate Blood Pressure 172/106 156/111 156/111 O2 Sat by Pulse 100 100 100 Oximetry 02/17/21 02/17/21 02/17/21 01:21 01:30 01:41 Temperature Pulse Rate 87 85 85 Pulse Rate [ From Monitor] Respiratory 25 H 30 H 30 H Rate Blood Pressure 167/113 182/115 182/115 O2 Sat by Pulse 100 100 100 Oximetry 02/17/21 02/17/21 02/17/21 01:51 02:00 02:11 Temperature Pulse Rate 85 86 85 Pulse Rate [ From Monitor] Respiratory 30 H 30 H 30 H Rate Blood Pressure 188/109 195/107 200/111 O2 Sat by Pulse 100 100 100 Oximetry 02/17/21 02/17/21 02/17/21 02:21 02:30 02:41 Temperature Pulse Rate 87 89 87 Pulse Rate [ From Monitor] Respiratory 29 H 30 H 30 H Rate Blood Pressure 201/112 201/111 201/111 O2 Sat by Pulse 100 100 100 Oximetry 02/17/21 02/17/21 02/17/21 02:51 02:57 03:00 Temperature Pulse Rate 86 88 87 Pulse Rate [ From Monitor] Respiratory 30 H 30 H Rate Blood Pressure 201/112 202/112 198/116 O2 Sat by Pulse 100 100 Oximetry 02/17/21 02/17/21 02/17/21 03:11 03:21 03:30 Temperature Pulse Rate 88 90 90 Pulse Rate [ From Monitor] Respiratory 30 H 30 H 30 H Rate Blood Pressure 198/116 195/98 186/95 O2 Sat by Pulse 100 100 100 Oximetry 02/17/21 02/17/21 02/17/21 03:41 03:51 04:00 Temperature 96.4 F L Pulse Rate 91 H 91 H 90 Pulse Rate [ 90 From Monitor] Respiratory 30 H 30 H 30 H Rate Blood Pressure 186/95 184/94 174/91 O2 Sat by Pulse 100 100 100 Oximetry 02/17/21 02/17/21 02/17/21 04:11 04:21 04:30 Temperature Pulse Rate 95 H 97 H 99 H Pulse Rate [ From Monitor] Respiratory 30 H 30 H 30 H Rate Blood Pressure 174/91 176/94 183/100 O2 Sat by Pulse 100 100 100 Oximetry 02/17/21 02/17/21 02/17/21 04:41 04:51 05:00 Temperature Pulse Rate 105 H 106 H 110 H Pulse Rate [ From Monitor] Respiratory 18 30 H 30 H Rate Blood Pressure 183/100 176/94 207/117 O2 Sat by Pulse 100 100 99 Oximetry 02/17/21 02/17/21 02/17/21 05:11 05:21 05:30 Temperature Pulse Rate 114 H 116 H 119 H Pulse Rate [ From Monitor] Respiratory 30 H 30 H 31 H Rate Blood Pressure 207/117 219/122 228/128 O2 Sat by Pulse 99 99 99 Oximetry 02/17/21 02/17/21 02/17/21 05:41 05:51 06:00 Temperature Pulse Rate 122 H 124 H 127 H Pulse Rate [ From Monitor] Respiratory 30 H 20 20 Rate Blood Pressure 228/128 221/127 201/111 O2 Sat by Pulse 98 98 98 Oximetry 02/17/21 02/17/21 02/17/21 06:02 06:11 06:21 Temperature Pulse Rate 126 H 99 H 107 H Pulse Rate [ From Monitor] Respiratory 30 H 30 H Rate Blood Pressure 201/111 201/111 195/117 O2 Sat by Pulse 99 99 Oximetry 02/17/21 02/17/21 02/17/21 06:30 06:41 06:51 Temperature Pulse Rate 108 H 110 H 111 H Pulse Rate [ From Monitor] Respiratory 30 H 30 H 30 H Rate Blood Pressure 205/121 205/121 205/128 O2 Sat by Pulse 100 99 100 Oximetry 02/17/21 02/17/21 02/17/21 07:00 07:11 07:21 Temperature Pulse Rate 111 H 112 H 112 H Pulse Rate [ From Monitor] Respiratory 30 H 29 H 29 H Rate Blood Pressure 206/128 206/128 208/130 O2 Sat by Pulse 100 100 100 Oximetry 02/17/21 02/17/21 02/17/21 07:30 07:41 07:45 Temperature 100.2 F H Pulse Rate 112 H Pulse Rate [ From Monitor] Respiratory 30 H 30 H Rate Blood Pressure 213/131 213/131 O2 Sat by Pulse 100 100 Oximetry 02/17/21 02/17/21 02/17/21 07:51 08:00 08:05 Temperature Pulse Rate 112 H 101 H 108 H Pulse Rate [ 108 H From Monitor] Respiratory 28 H 30 H Rate Blood Pressure 217/124 205/117 205/117 O2 Sat by Pulse 100 99 99 Oximetry 02/17/21 02/17/21 02/17/21 08:11 08:21 08:31 Temperature Pulse Rate 106 H 106 H 105 H Pulse Rate [ From Monitor] Respiratory 22 30 H 30 H Rate Blood Pressure 205/117 193/103 165/95 O2 Sat by Pulse 100 98 98 Oximetry 02/17/21 02/17/21 02/17/21 08:40 08:51 09:00 Temperature Pulse Rate 103 H 103 H 107 H Pulse Rate [ From Monitor] Respiratory 30 H 30 H 30 H Rate Blood Pressure 165/95 129/79 119/72 O2 Sat by Pulse 97 95 97 Oximetry - General Apperance Constitutional: comfortable - EENT EENT: PERRL, mucous membranes moist - Respiratory Respiratory: lungs clear, rhonchi - Cardiovascular Cardiovascular: regular rate, normal S1, normal S2 Extremities: no peripheral edema bilat, no clubbing, cyanosis - Gastrointestinal Gastrointestinal: normoactive bowel sounds - Integumentary Integumentary: normal - Neurologic Cranial nerve examination: other (pupils 4mm none reactive , no gag , no EOM ,no spontaneous breathing.) Speech examination: other (unresponsive intubated) Detailed motor examination: other (slight decerbration to stimuliL>R) - Laboratory Findings CBC and BMP: 02/16/21 20:08 02/16/21 20:08 Abnormal Lab Findings: Abnormal Labs 02/15/21 02/15/21 02/15/21 13:02 13:04 13:04 WBC 2.3 L RBC 1.54 L Hgb 3.5 L* Hct 11.8 L* MCV 77 L MCH 23 L MCHC 30 L RDW 22.3 H Plt Count Seg Neuts % (Manual) 77.0 H Lymphocytes % (Manual) 12.0 L Nucleated RBC % 2.0 H Seg Neutrophils # Man Lymphocytes # (Manual) 0.3 L PT 19.9 H INR 1.53 H APTT 89.3 H* D-Dimer 3584.01 H ABG pH POC ABG pCO2 ABG pO2 ABG HCO3 ABG O2 Saturation ABG Base Excess ABG Hemoglobin ABG Oxyhemoglobin ABG Sodium ABG Potassium ABG Chloride ABG Glucose Carboxyhemoglobin Sodium Potassium Chloride Carbon Dioxide BUN Creatinine Glucose POC Glucose Lactic Acid 12.40 H* Calcium Phosphorus Ferritin AST ALT Lactate Dehydrogenase Total Creatine Kinase CK-MB (CK-2) CK-MB (CK-2) Rel Index Troponin T C-Reactive Protein NT-Pro-B Natriuret Pep Total Protein Albumin HDL Cholesterol TSH Arterial Blood Glucose Urine WBC (Auto) Salicylates Acetaminophen Crossmatch 02/15/21 02/15/21 02/15/21 13:04 13:04 13:04 WBC RBC Hgb Hct MCV MCH MCHC RDW Plt Count Seg Neuts % (Manual) Lymphocytes % (Manual) Nucleated RBC % Seg Neutrophils # Man Lymphocytes # (Manual) PT INR APTT D-Dimer ABG pH POC ABG pCO2 ABG pO2 ABG HCO3 ABG O2 Saturation ABG Base Excess ABG Hemoglobin ABG Oxyhemoglobin ABG Sodium ABG Potassium ABG Chloride ABG Glucose Carboxyhemoglobin Sodium Potassium 9.7 H* Chloride 111.2 H Carbon Dioxide 13 L BUN 73 H Creatinine 6.5 H Glucose 20 L* POC Glucose Lactic Acid Calcium 12.0 H Phosphorus Ferritin AST 605 H ALT 406 H Lactate Dehydrogenase 1369 H Total Creatine Kinase CK-MB (CK-2) CK-MB (CK-2) Rel Index Troponin T C-Reactive Protein 5.30 H NT-Pro-B Natriuret Pep 109154 H Total Protein 5.9 L Albumin 1.5 L HDL Cholesterol TSH Arterial Blood Glucose Urine WBC (Auto) Salicylates Acetaminophen Crossmatch See Detail 02/15/21 02/15/21 02/15/21 13:04 13:04 13:04 WBC RBC Hgb Hct MCV MCH MCHC RDW Plt Count Seg Neuts % (Manual) Lymphocytes % (Manual) Nucleated RBC % Seg Neutrophils # Man Lymphocytes # (Manual) PT INR APTT D-Dimer ABG pH POC ABG pCO2 ABG pO2 ABG HCO3 ABG O2 Saturation ABG Base Excess ABG Hemoglobin ABG Oxyhemoglobin ABG Sodium ABG Potassium ABG Chloride ABG Glucose Carboxyhemoglobin Sodium Potassium Chloride Carbon Dioxide BUN Creatinine Glucose POC Glucose Lactic Acid Calcium Phosphorus Ferritin AST ALT Lactate Dehydrogenase Total Creatine Kinase CK-MB (CK-2) CK-MB (CK-2) Rel Index Troponin T C-Reactive Protein NT-Pro-B Natriuret Pep Total Protein Albumin HDL Cholesterol TSH 7.000 H Arterial Blood Glucose Urine WBC (Auto) Salicylates < 0.3 L Acetaminophen 5.0 L Crossmatch 02/15/21 02/15/21 02/15/21 13:07 13:08 13:10 WBC RBC Hgb Hct MCV MCH MCHC RDW Plt Count Seg Neuts % (Manual) Lymphocytes % (Manual) Nucleated RBC % Seg Neutrophils # Man Lymphocytes # (Manual) PT INR APTT D-Dimer ABG pH POC ABG pCO2 ABG pO2 ABG HCO3 ABG O2 Saturation ABG Base Excess ABG Hemoglobin ABG Oxyhemoglobin ABG Sodium ABG Potassium ABG Chloride ABG Glucose Carboxyhemoglobin Sodium Potassium Chloride Carbon Dioxide BUN Creatinine Glucose POC Glucose 11 L 13 L Lactic Acid Calcium Phosphorus Ferritin AST ALT Lactate Dehydrogenase Total Creatine Kinase 462 H CK-MB (CK-2) 20.8 H CK-MB (CK-2) Rel Index 4.5 H Troponin T 0.554 H* C-Reactive Protein NT-Pro-B Natriuret Pep Total Protein Albumin HDL Cholesterol 27 L TSH Arterial Blood Glucose Urine WBC (Auto) Salicylates Acetaminophen Crossmatch 02/15/21 02/15/21 02/15/21 14:23 16:10 17:30 WBC RBC Hgb Hct MCV MCH MCHC RDW Plt Count Seg Neuts % (Manual) Lymphocytes % (Manual) Nucleated RBC % Seg Neutrophils # Man Lymphocytes # (Manual) PT INR APTT D-Dimer ABG pH 6.845 L* POC ABG pCO2 ABG pO2 296.7 H ABG HCO3 12.4 L ABG O2 Saturation 99.3 H ABG Base Excess -18.6 L ABG Hemoglobin ABG Oxyhemoglobin ABG Sodium ABG Potassium ABG Chloride ABG Glucose Carboxyhemoglobin Sodium Potassium Chloride Carbon Dioxide BUN Creatinine Glucose POC Glucose Lactic Acid Calcium Phosphorus Ferritin AST ALT Lactate Dehydrogenase Total Creatine Kinase 2102 H CK-MB (CK-2) 50.0 H CK-MB (CK-2) Rel Index Troponin T 1.290 H* D C-Reactive Protein NT-Pro-B Natriuret Pep Total Protein Albumin HDL Cholesterol TSH Arterial Blood Glucose Urine WBC (Auto) 55.0 H Salicylates Acetaminophen Crossmatch 02/15/21 02/15/21 02/15/21 19:02 19:02 19:02 WBC RBC 2.29 L Hgb 5.7 L* Hct 18.1 L* D MCV 79 L MCH 25 L MCHC RDW 22.0 H Plt Count Seg Neuts % (Manual) 79.0 H Lymphocytes % (Manual) 1.0 L Nucleated RBC % Seg Neutrophils # Man Lymphocytes # (Manual) 0.1 L PT INR APTT D-Dimer ABG pH POC ABG pCO2 ABG pO2 ABG HCO3 ABG O2 Saturation ABG Base Excess ABG Hemoglobin ABG Oxyhemoglobin ABG Sodium ABG Potassium ABG Chloride ABG Glucose Carboxyhemoglobin Sodium Potassium Chloride Carbon Dioxide BUN Creatinine Glucose POC Glucose Lactic Acid 5.90 H* Calcium Phosphorus Ferritin AST ALT Lactate Dehydrogenase Total Creatine Kinase 2992 H CK-MB (CK-2) 54.3 H CK-MB (CK-2) Rel Index Troponin T 1.150 H* C-Reactive Protein NT-Pro-B Natriuret Pep Total Protein Albumin HDL Cholesterol TSH Arterial Blood Glucose Urine WBC (Auto) Salicylates Acetaminophen Crossmatch 02/15/21 02/15/21 02/15/21 19:02 20:26 23:23 WBC RBC 2.31 L Hgb 5.8 L* Hct 18.5 L* MCV 80 L MCH 25 L MCHC 31 L RDW 21.1 H Plt Count Seg Neuts % (Manual) 82.0 H Lymphocytes % (Manual) 1.0 L Nucleated RBC % 8.0 H Seg Neutrophils # Man Lymphocytes # (Manual) 0.1 L PT INR APTT D-Dimer ABG pH 7.044 L POC ABG pCO2 65.8 H ABG pO2 ABG HCO3 ABG O2 Saturation ABG Base Excess ABG Hemoglobin 6.0 L ABG Oxyhemoglobin 91.1 L ABG Sodium 135.9 L ABG Potassium 5.0 H ABG Chloride 108.0 H ABG Glucose 106 H Carboxyhemoglobin 0.4 L Sodium Potassium 5.5 H D Chloride Carbon Dioxide 16 L BUN 46 H Creatinine 4.5 H Glucose 117 H POC Glucose Lactic Acid Calcium 8.3 L D Phosphorus Ferritin AST ALT Lactate Dehydrogenase Total Creatine Kinase CK-MB (CK-2) CK-MB (CK-2) Rel Index Troponin T C-Reactive Protein NT-Pro-B Natriuret Pep Total Protein Albumin HDL Cholesterol TSH Arterial Blood Glucose 106 H Urine WBC (Auto) Salicylates Acetaminophen Crossmatch 02/15/21 02/15/21 02/15/21 23:23 23:23 23:23 WBC RBC Hgb Hct MCV MCH MCHC RDW Plt Count Seg Neuts % (Manual) Lymphocytes % (Manual) Nucleated RBC % Seg Neutrophils # Man Lymphocytes # (Manual) PT INR APTT D-Dimer ABG pH POC ABG pCO2 ABG pO2 ABG HCO3 ABG O2 Saturation ABG Base Excess ABG Hemoglobin ABG Oxyhemoglobin ABG Sodium ABG Potassium ABG Chloride ABG Glucose Carboxyhemoglobin Sodium Potassium 5.4 H Chloride 107.7 H Carbon Dioxide 15 L BUN 52 H Creatinine 4.8 H Glucose POC Glucose Lactic Acid 5.60 H* Calcium 7.6 L Phosphorus Ferritin 388.1 H AST ALT Lactate Dehydrogenase Total Creatine Kinase CK-MB (CK-2) CK-MB (CK-2) Rel Index Troponin T C-Reactive Protein NT-Pro-B Natriuret Pep Total Protein Albumin HDL Cholesterol TSH Arterial Blood Glucose Urine WBC (Auto) Salicylates Acetaminophen Crossmatch 02/15/21 02/15/21 02/16/21 23:23 23:23 09:30 WBC RBC Hgb Hct MCV MCH MCHC RDW Plt Count Seg Neuts % (Manual) Lymphocytes % (Manual) Nucleated RBC % Seg Neutrophils # Man Lymphocytes # (Manual) PT INR APTT D-Dimer ABG pH 7.240 L POC ABG pCO2 ABG pO2 283.7 H ABG HCO3 16.6 L ABG O2 Saturation 99.4 H ABG Base Excess -10.0 L ABG Hemoglobin 7.6 L ABG Oxyhemoglobin ABG Sodium ABG Potassium ABG Chloride ABG Glucose Carboxyhemoglobin Sodium Potassium Chloride Carbon Dioxide BUN Creatinine Glucose POC Glucose Lactic Acid Calcium Phosphorus 9.60 H Ferritin AST ALT Lactate Dehydrogenase Total Creatine Kinase CK-MB (CK-2) CK-MB (CK-2) Rel Index Troponin T C-Reactive Protein 6.80 H NT-Pro-B Natriuret Pep Total Protein Albumin HDL Cholesterol TSH Arterial Blood Glucose Urine WBC (Auto) Salicylates Acetaminophen Crossmatch 02/16/21 02/16/21 02/16/21 20:08 20:08 22:40 WBC 13.6 H RBC Hgb 9.5 L D Hct 29.4 L D MCV 80 L MCH 26 L MCHC RDW 20.3 H Plt Count 103 L Seg Neuts % (Manual) 97.0 H Lymphocytes % (Manual) Nucleated RBC % 2.0 H Seg Neutrophils # Man 13.2 H Lymphocytes # (Manual) 0.0 L PT INR APTT D-Dimer ABG pH POC ABG pCO2 ABG pO2 330.0 H ABG HCO3 ABG O2 Saturation 99.5 H ABG Base Excess -2.7 L ABG Hemoglobin 10.3 L ABG Oxyhemoglobin ABG Sodium ABG Potassium ABG Chloride ABG Glucose Carboxyhemoglobin Sodium 134 L Potassium 5.1 H Chloride Carbon Dioxide 20 L BUN 39 H Creatinine 3.6 H Glucose 116 H POC Glucose Lactic Acid Calcium 6.9 L Phosphorus Ferritin AST ALT Lactate Dehydrogenase Total Creatine Kinase CK-MB (CK-2) CK-MB (CK-2) Rel Index Troponin T C-Reactive Protein NT-Pro-B Natriuret Pep Total Protein Albumin HDL Cholesterol TSH Arterial Blood Glucose Urine WBC (Auto) Salicylates Acetaminophen Crossmatch 02/17/21 05:55 WBC RBC Hgb Hct MCV MCH MCHC RDW Plt Count Seg Neuts % (Manual) Lymphocytes % (Manual) Nucleated RBC % Seg Neutrophils # Man Lymphocytes # (Manual) PT INR APTT D-Dimer ABG pH POC ABG pCO2 ABG pO2 ABG HCO3 ABG O2 Saturation ABG Base Excess ABG Hemoglobin ABG Oxyhemoglobin ABG Sodium ABG Potassium ABG Chloride ABG Glucose Carboxyhemoglobin Sodium Potassium Chloride Carbon Dioxide BUN Creatinine Glucose POC Glucose 111 H Lactic Acid Calcium Phosphorus Ferritin AST ALT Lactate Dehydrogenase Total Creatine Kinase CK-MB (CK-2) CK-MB (CK-2) Rel Index Troponin T C-Reactive Protein NT-Pro-B Natriuret Pep Total Protein Albumin HDL Cholesterol TSH Arterial Blood Glucose Urine WBC (Auto) Salicylates Acetaminophen Crossmatch
[2021-02-17] MEDS: SENNOSIDES/DOCUSATE SODIUM 8.6/50 MG TAB FEEDTUBE SCH (11:04)
[2021-02-17] MEDS ORDERED: DOPamine/D5W 800 MG/250 ML 800 MG/250 ML BAG IV SCH (12:00)
--- NOTE | 2021-02-17 13:29 | Progress Note ---
Assessment and Plan Patient is a 30-year-old male with unknown past medical history who was found to be unresponsive at home s/p Cardiac arrest requiring pressors Bilateral PNA Anemia NSTEMI Hyperkalemia Acute renal failure on HD- nephrology consulted Anoxic Brain Injury- Neuro consulted hypoglycemia Plan: EKG sinus 85 No acute ischemic changes. Troponins noted to be elevated in setting of acute renal failure and following multiple prolong rounds of ACLS protocols BNP noted to be elevated. Echo pending Patient currently intubated, sedated, and on pressors Prognosis very poor Discussed patient condition and prognosis with patient family who was at bedside Patient seen in conjunction with Dr. Stephenson who agrees with plan of care. Will continue to follow - Patient Problems (1) Anoxic brain injury Current Visit: Yes Status: Acute (2) Acute respiratory failure Current Visit: Yes Status: Acute (3) Acute renal failure Current Visit: Yes Status: Acute (4) Bilateral pneumonia Current Visit: Yes Status: Acute Qualifiers: Pneumonia type: due to unspecified organism (5) Cardiac arrest Current Visit: Yes Status: Acute (6) Elevated brain natriuretic peptide (BNP) level Current Visit: Yes Status: Acute (7) Hyperkalemia Current Visit: Yes Status: Acute (8) Hypothermia Current Visit: Yes Status: Acute (9) NSTEMI (non-ST elevated myocardial infarction) Current Visit: Yes Status: Acute (10) Severe anemia Current Visit: Yes Status: Acute Subjective Date of service: 02/17/21 Principal diagnosis: Ac hypoxemic resp failure; Cardiac arrest; PNA; ZAC; PUI COVID-19 infection Interval history: Patient head PEA arrest this AM. ACLS protocol initiated and ROSC achieved. Objective Vital Signs Temp Pulse Pulse Resp BP BP Pulse Ox 02/17/21 12:00 99.5 F 89 87 30 H 119/53 100 02/17/21 11:50 86 30 H 90/57 100 02/17/21 11:40 81 30 H 107/55 100 02/17/21 11:30 87 30 H 108/52 100 02/17/21 11:21 92 H 116/42 100 02/17/21 11:20 91 H 30 H 116/42 100 02/17/21 11:10 104 H 30 H 133/50 100 02/17/21 11:00 97 H 30 H 104/46 100 02/17/21 10:51 99 H 30 H 107/45 100 02/17/21 10:41 107 H 30 H 203/69 85 02/17/21 10:31 65 30 H 104/57 99 02/17/21 10:21 92 H 30 H 104/57 100 02/17/21 10:11 85 30 H 131/50 99 02/17/21 10:00 95 H 25 H 131/50 98 02/17/21 09:51 88 14 121/57 99 02/17/21 09:41 106 H 11 L 118/62 98 02/17/21 09:30 105 H 30 H 118/62 97 02/17/21 09:21 106 H 30 H 106/73 97 02/17/21 09:11 105 H 30 H 119/72 97 02/17/21 09:00 107 H 30 H 119/72 97 02/17/21 08:51 103 H 30 H 129/79 95 02/17/21 08:40 103 H 30 H 165/95 97 02/17/21 08:31 105 H 30 H 165/95 98 02/17/21 08:21 106 H 30 H 193/103 98 02/17/21 08:11 106 H 22 205/117 100 02/17/21 08:05 108 H 205/117 99 02/17/21 08:00 101 H 108 H 30 H 205/117 99 02/17/21 07:51 112 H 28 H 217/124 100 02/17/21 07:45 100.2 F H 02/17/21 07:41 112 H 30 H 213/131 100 02/17/21 07:30 30 H 213/131 100 02/17/21 07:21 112 H 29 H 208/130 100 02/17/21 07:11 112 H 29 H 206/128 100 02/17/21 07:00 111 H 30 H 206/128 100 02/17/21 06:51 111 H 30 H 205/128 100 02/17/21 06:41 110 H 30 H 205/121 99 02/17/21 06:30 108 H 30 H 205/121 100 02/17/21 06:21 107 H 30 H 195/117 99 02/17/21 06:11 99 H 30 H 201/111 99 02/17/21 06:02 126 H 201/111 02/17/21 06:00 127 H 20 201/111 98 02/17/21 05:51 124 H 20 221/127 98 02/17/21 05:41 122 H 30 H 228/128 98 02/17/21 05:30 119 H 31 H 228/128 99 02/17/21 05:21 116 H 30 H 219/122 99 02/17/21 05:11 114 H 30 H 207/117 99 02/17/21 05:00 110 H 30 H 207/117 99 02/17/21 04:51 106 H 30 H 176/94 100 02/17/21 04:41 105 H 18 183/100 100 02/17/21 04:30 99 H 30 H 183/100 100 02/17/21 04:21 97 H 30 H 176/94 100 02/17/21 04:11 95 H 30 H 174/91 100 02/17/21 04:00 96.4 F L 90 90 30 H 174/91 100 02/17/21 03:51 91 H 30 H 184/94 100 02/17/21 03:41 91 H 30 H 186/95 100 02/17/21 03:30 90 30 H 186/95 100 02/17/21 03:21 90 30 H 195/98 100 02/17/21 03:11 88 30 H 198/116 100 02/17/21 03:00 87 30 H 198/116 100 02/17/21 02:57 88 202/112 02/17/21 02:51 86 30 H 201/112 100 02/17/21 02:41 87 30 H 201/111 100 02/17/21 02:30 89 30 H 201/111 100 02/17/21 02:21 87 29 H 201/112 100 02/17/21 02:11 85 30 H 200/111 100 02/17/21 02:00 86 30 H 195/107 100 02/17/21 01:51 85 30 H 188/109 100 02/17/21 01:41 85 30 H 182/115 100 02/17/21 01:30 85 30 H 182/115 100 02/17/21 01:21 87 25 H 167/113 100 02/17/21 01:11 85 30 H 156/111 100 02/17/21 01:01 85 30 H 156/111 100 02/17/21 00:51 86 30 H 172/106 100 02/17/21 00:41 85 30 H 170/102 100 02/17/21 00:30 85 30 H 170/102 100 02/17/21 00:21 86 30 H 158/97 100 02/17/21 00:11 86 30 H 152/91 100 02/17/21 00:00 93.6 F L 85 87 30 H 172/106 100 02/16/21 23:59 88 30 H 151/95 100 02/16/21 23:51 89 30 H 151/95 100 02/16/21 23:41 90 30 H 159/92 100 02/16/21 23:30 93 H 30 H 159/92 100 02/16/21 23:21 90 30 H 171/95 100 02/16/21 23:11 94 H 22 201/105 100 02/16/21 23:01 92 H 30 H 201/105 100 02/16/21 22:54 91 H 222/109 02/16/21 22:51 91 H 30 H 222/109 100 02/16/21 22:41 92 H 30 H 263/146 100 02/16/21 22:30 93 H 27 H 231/124 100 02/16/21 22:21 263/146 02/16/21 22:11 96 H 30 H 256/164 02/16/21 22:00 96 H 30 H 259/154 02/16/21 21:50 94 H 29 H 256/164 02/16/21 21:48 93 H 256/164 02/16/21 21:46 93 H 256/164 02/16/21 21:40 94 H 30 H 256/164 02/16/21 21:30 93 H 30 H 256/164 100 02/16/21 21:21 93 H 30 H 267/164 100 02/16/21 21:11 92 H 30 H 267/164 100 02/16/21 21:00 92 H 30 H 262/160 100 02/16/21 20:51 92 H 30 H 101/46 100 02/16/21 20:50 92 H 267/164 100 02/16/21 20:41 92 H 30 H 101/46 100 02/16/21 20:31 92 H 30 H 267/164 100 02/16/21 20:21 92 H 27 H 101/46 100 02/16/21 20:11 93 H 30 H 101/46 100 02/16/21 20:00 92.5 F L 94 H 93 H 29 H 101/46 100 02/16/21 19:51 95 H 20 100 02/16/21 19:41 95 H 21 100 02/16/21 19:37 95 H 29 H 100 02/16/21 19:00 94 H 17 188/146 100 02/16/21 18:51 95 H 18 189/145 100 02/16/21 18:46 98.2 F 94 H 26 H 186/147 100 02/16/21 18:41 94 H 18 188/146 100 02/16/21 18:31 94 H 22 187/145 100 02/16/21 18:21 94 H 31 H 187/145 100 02/16/21 18:11 94 H 17 186/146 100 02/16/21 18:01 95 H 21 183/147 100 02/16/21 17:51 94 H 20 183/147 100 02/16/21 17:48 98.2 F 94 H 26 H 186/147 02/16/21 17:41 94 H 20 184/147 100 02/16/21 17:30 94 H 19 186/147 100 02/16/21 17:21 95 H 20 189/147 100 02/16/21 17:15 93 H 185/145 02/16/21 17:11 95 H 17 185/145 100 02/16/21 17:01 93 H 15 180/144 100 02/16/21 17:00 93 H 180/144 02/16/21 16:51 92 H 28 H 180/144 100 02/16/21 16:45 91 H 178/141 02/16/21 16:41 91 H 13 178/141 100 02/16/21 16:40 91 H 178/141 100 02/16/21 16:31 90 14 176/141 100 02/16/21 16:30 89 177/140 02/16/21 16:21 89 15 177/140 100 02/16/21 16:15 88 176/141 02/16/21 16:11 88 20 176/141 100 02/16/21 16:01 88 22 172/137 100 02/16/21 16:00 88 176/141 02/16/21 15:51 87 31 H 172/137 100 02/16/21 15:45 87 172/137 02/16/21 15:41 87 26 H 172/137 100 02/16/21 15:31 87 27 H 174/135 100 02/16/21 15:30 85 172/137 02/16/21 15:21 87 18 174/135 100 02/16/21 15:15 85 172/137 02/16/21 15:05 96.9 F L 84 19 169/133 100 02/16/21 15:00 84 171/129 02/16/21 14:45 96.8 F L 81 18 161/125 100 02/16/21 14:41 84 15 161/125 100 02/16/21 14:30 83 19 163/121 100 02/16/21 14:23 81 149/116 02/16/21 14:21 82 29 H 149/116 100 02/16/21 14:18 81 15 149/116 100 02/16/21 14:14 96.8 F L 81 15 150/119 100 02/16/21 14:11 81 18 150/117 100 02/16/21 14:01 82 22 154/117 100 02/16/21 13:51 82 14 154/117 100 02/16/21 13:41 82 25 H 151/116 100 02/16/21 13:31 82 17 151/113 100 Pulse Ox 02/17/21 12:00 02/17/21 11:50 02/17/21 11:40 02/17/21 11:30 02/17/21 11:21 02/17/21 11:20 02/17/21 11:10 02/17/21 11:00 02/17/21 10:51 02/17/21 10:41 02/17/21 10:31 02/17/21 10:21 02/17/21 10:11 02/17/21 10:00 02/17/21 09:51 02/17/21 09:41 02/17/21 09:30 02/17/21 09:21 02/17/21 09:11 02/17/21 09:00 02/17/21 08:51 02/17/21 08:40 02/17/21 08:31 02/17/21 08:21 02/17/21 08:11 02/17/21 08:05 02/17/21 08:00 02/17/21 07:51 02/17/21 07:45 02/17/21 07:41 02/17/21 07:30 02/17/21 07:21 02/17/21 07:11 02/17/21 07:00 02/17/21 06:51 02/17/21 06:41 02/17/21 06:30 02/17/21 06:21 02/17/21 06:11 02/17/21 06:02 02/17/21 06:00 02/17/21 05:51 02/17/21 05:41 02/17/21 05:30 02/17/21 05:21 02/17/21 05:11 02/17/21 05:00 02/17/21 04:51 02/17/21 04:41 02/17/21 04:30 02/17/21 04:21 02/17/21 04:11 02/17/21 04:00 02/17/21 03:51 02/17/21 03:41 02/17/21 03:30 02/17/21 03:21 02/17/21 03:11 02/17/21 03:00 02/17/21 02:57 02/17/21 02:51 02/17/21 02:41 02/17/21 02:30 02/17/21 02:21 02/17/21 02:11 02/17/21 02:00 02/17/21 01:51 02/17/21 01:41 02/17/21 01:30 02/17/21 01:21 02/17/21 01:11 02/17/21 01:01 02/17/21 00:51 02/17/21 00:41 02/17/21 00:30 02/17/21 00:21 02/17/21 00:11 02/17/21 00:00 02/16/21 23:59 02/16/21 23:51 02/16/21 23:41 02/16/21 23:30 02/16/21 23:21 02/16/21 23:11 02/16/21 23:01 02/16/21 22:54 02/16/21 22:51 02/16/21 22:41 02/16/21 22:30 02/16/21 22:21 02/16/21 22:11 02/16/21 22:00 02/16/21 21:50 02/16/21 21:48 02/16/21 21:46 02/16/21 21:40 02/16/21 21:30 02/16/21 21:21 02/16/21 21:11 02/16/21 21:00 02/16/21 20:51 02/16/21 20:50 02/16/21 20:41 02/16/21 20:31 02/16/21 20:21 02/16/21 20:11 02/16/21 20:00 02/16/21 19:51 02/16/21 19:41 02/16/21 19:37 02/16/21 19:00 02/16/21 18:51 02/16/21 18:46 02/16/21 18:41 02/16/21 18:31 02/16/21 18:21 02/16/21 18:11 02/16/21 18:01 02/16/21 17:51 02/16/21 17:48 100 02/16/21 17:41 02/16/21 17:30 02/16/21 17:21 02/16/21 17:15 02/16/21 17:11 02/16/21 17:01 02/16/21 17:00 02/16/21 16:51 02/16/21 16:45 02/16/21 16:41 02/16/21 16:40 02/16/21 16:31 02/16/21 16:30 02/16/21 16:21 02/16/21 16:15 02/16/21 16:11 02/16/21 16:01 02/16/21 16:00 02/16/21 15:51 02/16/21 15:45 02/16/21 15:41 02/16/21 15:31 02/16/21 15:30 02/16/21 15:21 02/16/21 15:15 02/16/21 15:05 02/16/21 15:00 02/16/21 14:45 02/16/21 14:41 02/16/21 14:30 02/16/21 14:23 02/16/21 14:21 02/16/21 14:18 02/16/21 14:14 100 02/16/21 14:11 02/16/21 14:01 02/16/21 13:51 02/16/21 13:41 02/16/21 13:31 - Physical Examination General: Other (Patient intubated) HEENT: Positive: Mucus Membranes Dry, Other Neck: Positive: trachea midline Cardiac: Positive: Reg Rate and Rhythm Lungs: Positive: Ventilated Respirations Neuro: Positive: Other (unable to assess) Abdomen: Positive: Active Bowel Sounds Skin: Negative: Rash, Suspicious Lesions, Ulceration Extremities: Present: upper extr. pulses, edema (anasarcia), Cool - Labs and Meds CBC 02/16/21 Range/Units 20:08 WBC 13.6 H (4.5-11.0) K/mm3 RBC 3.66 (3.65-5.03) M/mm3 Hgb 9.5 L D (11.8-15.2) gm/dl Hct 29.4 L D (35.5-45.6) % Plt Count 103 L (140-440) K/mm3 Comprehensive Metabolic Panel 02/16/21 Range/Units 20:08 Sodium 134 L (137-145) mmol/L Potassium 5.1 H (3.6-5.0) mmol/L Chloride 99.2 (98-107) mmol/L Carbon Dioxide 20 L (22-30) mmol/L BUN 39 H (9-20) mg/dL Creatinine 3.6 H (0.8-1.3) mg/dL Glucose 116 H (75-100) mg/dL Calcium 6.9 L (8.4-10.2) mg/dL - Imaging and Cardiology EKG: report reviewed Echo: pending - Telemetry EKG Rhythm: Sinus Rhythm - EKG Sinus rhythms and dysrhythmias: sinus rhythm Repolarization changes or abnormalities: Suggestive of hyperkalemia - Allied health notes Allied health notes reviewed: nursing
--- NOTE | 2021-02-17 14:30 | Progress Note ---
Assessment and Plan Acute hypoxemic respiratory failure Cardiac arrest with ROSC Bilateral pneumonia PUI COVID-19 infection Acute kidney injury Severe hyperkalemia Severe anemia Possible hypothyroidism Severe metabolic acidosis Oropharyngeal dysphagia Elevated serum transaminase Elevated serum troponin post-cardiac resuscitation - NM brain flow scan ordered - explained to family the potential meaning of brain and they are awaiting the scan results - appreciate neurology input - 2D ECHO with pericardial effusion but no evidence of tamponade after my discussion with cardiology team - continue care as below otherwise; - continue HD/UF per nephrology precription for toxin and volume clearance - continue compensatory hyperventilation for acidosis - continue Daily SAT and SBT assessment as tolerated - continue to wean supplemental oxygen for target O2 sat's > 90% acutely - VAP bundle addressed - continue lung protective strategies - continue bronchodilators with pulmonary hygiene per RT - wean per pulmonary driven protocols otherwise - avoid nephrotoxins, renally dose all medications - continue accuchecks with glycemic control per SSI (While critically ill target blood glucose of 140-180 mg/dL; avoid hypoglycemia) - sedation prn for target RASS 0 to -1 - AB's per ID rec's - prn analgesia per CPOT score - Maintenance of sleep-wake cycle, avoid delirium - continue enteral nutritional support at goal rate as tolerated - G.I. & VTE prophylaxis - PT/OT/ROM exercises - continue mobility protocols for pressure ulcer prophylaxis - Monitor hemodynamics closely - continue other care per attending / other consultants - discharge planning ongoing concurrently COVID SPECIFIC INTERVENTIONS - COVID-19 test result pending - continue empiric isolation .... Re-evaluate in am & prn CONDITION: CRITICAL PROGNOSIS: GUARDED CODE STATUS: FULL CODE The high probability of a clinically significant, sudden or life-threatening deterioration of the [respiratory, cardiovascular, renal & neurologic] system(s) required my full and direct attention, intervention and personal management. The aggregate critical care time was [45] minutes without overlap. Time includes spent on; [x] Data Review and interpretation [x] Patient assessment and monitoring of vital signs [x] Documentation [x] Medication orders and management Subjective Date of service: 02/17/21 Principal diagnosis: Ac hypoxemic resp failure; Cardiac arrest; PNA; ZAC; PUI COVID-19 infection Interval history: Patient is seen today for: Acute hypoxemic respiratory failure; Cardiac arrest with ROSC; Pneumonia; ZAC; PUI COVID-19 infection Seen and examined at bedside; 24hour events reviewed; nursing and respiratory care staff consulted; no adverse overnight events reported to me; resting in bed; AMS is persistent; s/p cardiac arrest this morning; neurologic exam remains suggestive of brain ; discussed care plan with his father and siblings today; no emesis or overt aspiration and no seizures Objective Vital Signs - 12hr 02/17/21 02/17/21 02/17/21 02:11 02:21 02:30 Temperature Pulse Rate 85 87 89 Pulse Rate [ From Monitor] Respiratory 30 H 29 H 30 H Rate Blood Pressure 200/111 201/112 201/111 O2 Sat by Pulse 100 100 100 Oximetry 02/17/21 02/17/21 02/17/21 02:41 02:51 02:57 Temperature Pulse Rate 87 86 88 Pulse Rate [ From Monitor] Respiratory 30 H 30 H Rate Blood Pressure 201/111 201/112 202/112 O2 Sat by Pulse 100 100 Oximetry 02/17/21 02/17/21 02/17/21 03:00 03:11 03:21 Temperature Pulse Rate 87 88 90 Pulse Rate [ From Monitor] Respiratory 30 H 30 H 30 H Rate Blood Pressure 198/116 198/116 195/98 O2 Sat by Pulse 100 100 100 Oximetry 02/17/21 02/17/21 02/17/21 03:30 03:41 03:51 Temperature Pulse Rate 90 91 H 91 H Pulse Rate [ From Monitor] Respiratory 30 H 30 H 30 H Rate Blood Pressure 186/95 186/95 184/94 O2 Sat by Pulse 100 100 100 Oximetry 02/17/21 02/17/21 02/17/21 04:00 04:11 04:21 Temperature 96.4 F L Pulse Rate 90 95 H 97 H Pulse Rate [ 90 From Monitor] Respiratory 30 H 30 H 30 H Rate Blood Pressure 174/91 174/91 176/94 O2 Sat by Pulse 100 100 100 Oximetry 02/17/21 02/17/21 02/17/21 04:30 04:41 04:51 Temperature Pulse Rate 99 H 105 H 106 H Pulse Rate [ From Monitor] Respiratory 30 H 18 30 H Rate Blood Pressure 183/100 183/100 176/94 O2 Sat by Pulse 100 100 100 Oximetry 02/17/21 02/17/21 02/17/21 05:00 05:11 05:21 Temperature Pulse Rate 110 H 114 H 116 H Pulse Rate [ From Monitor] Respiratory 30 H 30 H 30 H Rate Blood Pressure 207/117 207/117 219/122 O2 Sat by Pulse 99 99 99 Oximetry 02/17/21 02/17/21 02/17/21 05:30 05:41 05:51 Temperature Pulse Rate 119 H 122 H 124 H Pulse Rate [ From Monitor] Respiratory 31 H 30 H 20 Rate Blood Pressure 228/128 228/128 221/127 O2 Sat by Pulse 99 98 98 Oximetry 02/17/21 02/17/21 02/17/21 06:00 06:02 06:11 Temperature Pulse Rate 127 H 126 H 99 H Pulse Rate [ From Monitor] Respiratory 20 30 H Rate Blood Pressure 201/111 201/111 201/111 O2 Sat by Pulse 98 99 Oximetry 02/17/21 02/17/21 02/17/21 06:21 06:30 06:41 Temperature Pulse Rate 107 H 108 H 110 H Pulse Rate [ From Monitor] Respiratory 30 H 30 H 30 H Rate Blood Pressure 195/117 205/121 205/121 O2 Sat by Pulse 99 100 99 Oximetry 02/17/21 02/17/21 02/17/21 06:51 07:00 07:11 Temperature Pulse Rate 111 H 111 H 112 H Pulse Rate [ From Monitor] Respiratory 30 H 30 H 29 H Rate Blood Pressure 205/128 206/128 206/128 O2 Sat by Pulse 100 100 100 Oximetry 02/17/21 02/17/21 02/17/21 07:21 07:30 07:41 Temperature Pulse Rate 112 H 112 H Pulse Rate [ From Monitor] Respiratory 29 H 30 H 30 H Rate Blood Pressure 208/130 213/131 213/131 O2 Sat by Pulse 100 100 100 Oximetry 02/17/21 02/17/21 02/17/21 07:45 07:51 08:00 Temperature 100.2 F H Pulse Rate 112 H 101 H Pulse Rate [ 108 H From Monitor] Respiratory 28 H 30 H Rate Blood Pressure 217/124 205/117 O2 Sat by Pulse 100 99 Oximetry 02/17/21 02/17/21 02/17/21 08:05 08:11 08:21 Temperature Pulse Rate 108 H 106 H 106 H Pulse Rate [ From Monitor] Respiratory 22 30 H Rate Blood Pressure 205/117 205/117 193/103 O2 Sat by Pulse 99 100 98 Oximetry 02/17/21 02/17/21 02/17/21 08:31 08:40 08:51 Temperature Pulse Rate 105 H 103 H 103 H Pulse Rate [ From Monitor] Respiratory 30 H 30 H 30 H Rate Blood Pressure 165/95 165/95 129/79 O2 Sat by Pulse 98 97 95 Oximetry 02/17/21 02/17/21 02/17/21 09:00 09:11 09:21 Temperature Pulse Rate 107 H 105 H 106 H Pulse Rate [ From Monitor] Respiratory 30 H 30 H 30 H Rate Blood Pressure 119/72 119/72 106/73 O2 Sat by Pulse 97 97 97 Oximetry 02/17/21 02/17/21 02/17/21 09:30 09:41 09:51 Temperature Pulse Rate 105 H 106 H 88 Pulse Rate [ From Monitor] Respiratory 30 H 11 L 14 Rate Blood Pressure 118/62 118/62 121/57 O2 Sat by Pulse 97 98 99 Oximetry 02/17/21 02/17/21 02/17/21 10:00 10:11 10:21 Temperature Pulse Rate 95 H 85 92 H Pulse Rate [ From Monitor] Respiratory 25 H 30 H 30 H Rate Blood Pressure 131/50 131/50 104/57 O2 Sat by Pulse 98 99 100 Oximetry 02/17/21 02/17/21 02/17/21 10:31 10:41 10:51 Temperature Pulse Rate 65 107 H 99 H Pulse Rate [ From Monitor] Respiratory 30 H 30 H 30 H Rate Blood Pressure 104/57 203/69 107/45 O2 Sat by Pulse 99 85 100 Oximetry 02/17/21 02/17/21 02/17/21 11:00 11:10 11:20 Temperature Pulse Rate 97 H 104 H 91 H Pulse Rate [ From Monitor] Respiratory 30 H 30 H 30 H Rate Blood Pressure 104/46 133/50 116/42 O2 Sat by Pulse 100 100 100 Oximetry 02/17/21 02/17/21 02/17/21 11:21 11:30 11:40 Temperature Pulse Rate 92 H 87 81 Pulse Rate [ From Monitor] Respiratory 30 H 30 H Rate Blood Pressure 116/42 108/52 107/55 O2 Sat by Pulse 100 100 100 Oximetry 02/17/21 02/17/21 11:50 12:00 Temperature 99.5 F Pulse Rate 86 89 Pulse Rate [ 87 From Monitor] Respiratory 30 H 30 H Rate Blood Pressure 90/57 119/53 O2 Sat by Pulse 100 100 Oximetry Constitutional: no acute distress, other (young male without significant patient ventilator dyssynchrony) Eyes: non-icteric ENT: oropharynx moist, other (ETT 24 cm SAMPSON) Neck: supple, no lymphadenopathy, no JVD Effort: mildly labored Ascultation: Bilateral: rhonchi Percussion: Bilateral: not dull Cardiovascular: regular rate and rhythm Gastrointestinal: normoactive bowel sounds, soft, non-tender, non-distended Integumentary: normal Extremities: no cyanosis, pulses normal, no ischemia or petechiae, edema (1++) Neurologic: pupils equal and round (fixed at 6-7 mm), unable to assess Psychiatric: other (unable to assess re: AMS) CBC and BMP: 02/16/21 20:08 02/16/21 20:08 ABG, PT/INR, D-dimer: ABG ABG pH 7.416 pH Units (7.350-7.450) 02/16/21 22:40 POC ABG pCO2 65.8 mmHg (32.0-48.0) H 02/15/21 20:26 ABG pCO2 34.0 mm Hg 02/16/21 22:40 POC ABG pO2 88.5 mmHg (83-108) 02/15/21 20:26 ABG pO2 330.0 mm Hg (80.0-90.0) H 02/16/21 22:40 POC ABG HCO3 17.6 02/15/21 20:26 ABG O2 Saturation 99.5 % (95.0-99.0) H 02/16/21 22:40 PT/INR, D-dimer PT 19.9 Sec. (12.2-14.9) H 02/15/21 13:04 INR 1.53 (0.87-1.13) H 02/15/21 13:04 D-Dimer 3584.01 ng/mlDDU (0-234) H 02/15/21 13:04 Abnormal lab findings: Abnormal Labs 02/15/21 02/15/21 02/15/21 13:02 13:04 13:04 WBC 2.3 L RBC 1.54 L Hgb 3.5 L* Hct 11.8 L* MCV 77 L MCH 23 L MCHC 30 L RDW 22.3 H Plt Count Seg Neuts % (Manual) 77.0 H Lymphocytes % (Manual) 12.0 L Nucleated RBC % 2.0 H Seg Neutrophils # Man Lymphocytes # (Manual) 0.3 L PT 19.9 H INR 1.53 H APTT 89.3 H* D-Dimer 3584.01 H ABG pH POC ABG pCO2 ABG pO2 ABG HCO3 ABG O2 Saturation ABG Base Excess ABG Hemoglobin ABG Oxyhemoglobin ABG Sodium ABG Potassium ABG Chloride ABG Glucose Carboxyhemoglobin Sodium Potassium Chloride Carbon Dioxide BUN Creatinine Glucose POC Glucose Lactic Acid 12.40 H* Calcium Phosphorus Ferritin AST ALT Lactate Dehydrogenase Total Creatine Kinase CK-MB (CK-2) CK-MB (CK-2) Rel Index Troponin T C-Reactive Protein NT-Pro-B Natriuret Pep Total Protein Albumin HDL Cholesterol TSH Arterial Blood Glucose Urine WBC (Auto) Salicylates Acetaminophen Crossmatch 02/15/21 02/15/21 02/15/21 13:04 13:04 13:04 WBC RBC Hgb Hct MCV MCH MCHC RDW Plt Count Seg Neuts % (Manual) Lymphocytes % (Manual) Nucleated RBC % Seg Neutrophils # Man Lymphocytes # (Manual) PT INR APTT D-Dimer ABG pH POC ABG pCO2 ABG pO2 ABG HCO3 ABG O2 Saturation ABG Base Excess ABG Hemoglobin ABG Oxyhemoglobin ABG Sodium ABG Potassium ABG Chloride ABG Glucose Carboxyhemoglobin Sodium Potassium 9.7 H* Chloride 111.2 H Carbon Dioxide 13 L BUN 73 H Creatinine 6.5 H Glucose 20 L* POC Glucose Lactic Acid Calcium 12.0 H Phosphorus Ferritin AST 605 H ALT 406 H Lactate Dehydrogenase 1369 H Total Creatine Kinase CK-MB (CK-2) CK-MB (CK-2) Rel Index Troponin T C-Reactive Protein 5.30 H NT-Pro-B Natriuret Pep 854085 H Total Protein 5.9 L Albumin 1.5 L HDL Cholesterol TSH Arterial Blood Glucose Urine WBC (Auto) Salicylates Acetaminophen Crossmatch See Detail 02/15/21 02/15/21 02/15/21 13:04 13:04 13:04 WBC RBC Hgb Hct MCV MCH MCHC RDW Plt Count Seg Neuts % (Manual) Lymphocytes % (Manual) Nucleated RBC % Seg Neutrophils # Man Lymphocytes # (Manual) PT INR APTT D-Dimer ABG pH POC ABG pCO2 ABG pO2 ABG HCO3 ABG O2 Saturation ABG Base Excess ABG Hemoglobin ABG Oxyhemoglobin ABG Sodium ABG Potassium ABG Chloride ABG Glucose Carboxyhemoglobin Sodium Potassium Chloride Carbon Dioxide BUN Creatinine Glucose POC Glucose Lactic Acid Calcium Phosphorus Ferritin AST ALT Lactate Dehydrogenase Total Creatine Kinase CK-MB (CK-2) CK-MB (CK-2) Rel Index Troponin T C-Reactive Protein NT-Pro-B Natriuret Pep Total Protein Albumin HDL Cholesterol TSH 7.000 H Arterial Blood Glucose Urine WBC (Auto) Salicylates < 0.3 L Acetaminophen 5.0 L Crossmatch 02/15/21 02/15/21 02/15/21 13:07 13:08 13:10 WBC RBC Hgb Hct MCV MCH MCHC RDW Plt Count Seg Neuts % (Manual) Lymphocytes % (Manual) Nucleated RBC % Seg Neutrophils # Man Lymphocytes # (Manual) PT INR APTT D-Dimer ABG pH POC ABG pCO2 ABG pO2 ABG HCO3 ABG O2 Saturation ABG Base Excess ABG Hemoglobin ABG Oxyhemoglobin ABG Sodium ABG Potassium ABG Chloride ABG Glucose Carboxyhemoglobin Sodium Potassium Chloride Carbon Dioxide BUN Creatinine Glucose POC Glucose 11 L 13 L Lactic Acid Calcium Phosphorus Ferritin AST ALT Lactate Dehydrogenase Total Creatine Kinase 462 H CK-MB (CK-2) 20.8 H CK-MB (CK-2) Rel Index 4.5 H Troponin T 0.554 H* C-Reactive Protein NT-Pro-B Natriuret Pep Total Protein Albumin HDL Cholesterol 27 L TSH Arterial Blood Glucose Urine WBC (Auto) Salicylates Acetaminophen Crossmatch 02/15/21 02/15/21 02/15/21 14:23 16:10 17:30 WBC RBC Hgb Hct MCV MCH MCHC RDW Plt Count Seg Neuts % (Manual) Lymphocytes % (Manual) Nucleated RBC % Seg Neutrophils # Man Lymphocytes # (Manual) PT INR APTT D-Dimer ABG pH 6.845 L* POC ABG pCO2 ABG pO2 296.7 H ABG HCO3 12.4 L ABG O2 Saturation 99.3 H ABG Base Excess -18.6 L ABG Hemoglobin ABG Oxyhemoglobin ABG Sodium ABG Potassium ABG Chloride ABG Glucose Carboxyhemoglobin Sodium Potassium Chloride Carbon Dioxide BUN Creatinine Glucose POC Glucose Lactic Acid Calcium Phosphorus Ferritin AST ALT Lactate Dehydrogenase Total Creatine Kinase 2102 H CK-MB (CK-2) 50.0 H CK-MB (CK-2) Rel Index Troponin T 1.290 H* D C-Reactive Protein NT-Pro-B Natriuret Pep Total Protein Albumin HDL Cholesterol TSH Arterial Blood Glucose Urine WBC (Auto) 55.0 H Salicylates Acetaminophen Crossmatch 02/15/21 02/15/21 02/15/21 19:02 19:02 19:02 WBC RBC 2.29 L Hgb 5.7 L* Hct 18.1 L* D MCV 79 L MCH 25 L MCHC RDW 22.0 H Plt Count Seg Neuts % (Manual) 79.0 H Lymphocytes % (Manual) 1.0 L Nucleated RBC % Seg Neutrophils # Man Lymphocytes # (Manual) 0.1 L PT INR APTT D-Dimer ABG pH POC ABG pCO2 ABG pO2 ABG HCO3 ABG O2 Saturation ABG Base Excess ABG Hemoglobin ABG Oxyhemoglobin ABG Sodium ABG Potassium ABG Chloride ABG Glucose Carboxyhemoglobin Sodium Potassium Chloride Carbon Dioxide BUN Creatinine Glucose POC Glucose Lactic Acid 5.90 H* Calcium Phosphorus Ferritin AST ALT Lactate Dehydrogenase Total Creatine Kinase 2992 H CK-MB (CK-2) 54.3 H CK-MB (CK-2) Rel Index Troponin T 1.150 H* C-Reactive Protein NT-Pro-B Natriuret Pep Total Protein Albumin HDL Cholesterol TSH Arterial Blood Glucose Urine WBC (Auto) Salicylates Acetaminophen Crossmatch 02/15/21 02/15/21 02/15/21 19:02 20:26 23:23 WBC RBC 2.31 L Hgb 5.8 L* Hct 18.5 L* MCV 80 L MCH 25 L MCHC 31 L RDW 21.1 H Plt Count Seg Neuts % (Manual) 82.0 H Lymphocytes % (Manual) 1.0 L Nucleated RBC % 8.0 H Seg Neutrophils # Man Lymphocytes # (Manual) 0.1 L PT INR APTT D-Dimer ABG pH 7.044 L POC ABG pCO2 65.8 H ABG pO2 ABG HCO3 ABG O2 Saturation ABG Base Excess ABG Hemoglobin 6.0 L ABG Oxyhemoglobin 91.1 L ABG Sodium 135.9 L ABG Potassium 5.0 H ABG Chloride 108.0 H ABG Glucose 106 H Carboxyhemoglobin 0.4 L Sodium Potassium 5.5 H D Chloride Carbon Dioxide 16 L BUN 46 H Creatinine 4.5 H Glucose 117 H POC Glucose Lactic Acid Calcium 8.3 L D Phosphorus Ferritin AST ALT Lactate Dehydrogenase Total Creatine Kinase CK-MB (CK-2) CK-MB (CK-2) Rel Index Troponin T C-Reactive Protein NT-Pro-B Natriuret Pep Total Protein Albumin HDL Cholesterol TSH Arterial Blood Glucose 106 H Urine WBC (Auto) Salicylates Acetaminophen Crossmatch 02/15/21 02/15/21 02/15/21 23:23 23:23 23:23 WBC RBC Hgb Hct MCV MCH MCHC RDW Plt Count Seg Neuts % (Manual) Lymphocytes % (Manual) Nucleated RBC % Seg Neutrophils # Man Lymphocytes # (Manual) PT INR APTT D-Dimer ABG pH POC ABG pCO2 ABG pO2 ABG HCO3 ABG O2 Saturation ABG Base Excess ABG Hemoglobin ABG Oxyhemoglobin ABG Sodium ABG Potassium ABG Chloride ABG Glucose Carboxyhemoglobin Sodium Potassium 5.4 H Chloride 107.7 H Carbon Dioxide 15 L BUN 52 H Creatinine 4.8 H Glucose POC Glucose Lactic Acid 5.60 H* Calcium 7.6 L Phosphorus Ferritin 388.1 H AST ALT Lactate Dehydrogenase Total Creatine Kinase CK-MB (CK-2) CK-MB (CK-2) Rel Index Troponin T C-Reactive Protein NT-Pro-B Natriuret Pep Total Protein Albumin HDL Cholesterol TSH Arterial Blood Glucose Urine WBC (Auto) Salicylates Acetaminophen Crossmatch 02/15/21 02/15/21 02/16/21 23:23 23:23 09:30 WBC RBC Hgb Hct MCV MCH MCHC RDW Plt Count Seg Neuts % (Manual) Lymphocytes % (Manual) Nucleated RBC % Seg Neutrophils # Man Lymphocytes # (Manual) PT INR APTT D-Dimer ABG pH 7.240 L POC ABG pCO2 ABG pO2 283.7 H ABG HCO3 16.6 L ABG O2 Saturation 99.4 H ABG Base Excess -10.0 L ABG Hemoglobin 7.6 L ABG Oxyhemoglobin ABG Sodium ABG Potassium ABG Chloride ABG Glucose Carboxyhemoglobin Sodium Potassium Chloride Carbon Dioxide BUN Creatinine Glucose POC Glucose Lactic Acid Calcium Phosphorus 9.60 H Ferritin AST ALT Lactate Dehydrogenase Total Creatine Kinase CK-MB (CK-2) CK-MB (CK-2) Rel Index Troponin T C-Reactive Protein 6.80 H NT-Pro-B Natriuret Pep Total Protein Albumin HDL Cholesterol TSH Arterial Blood Glucose Urine WBC (Auto) Salicylates Acetaminophen Crossmatch 02/16/21 02/16/21 02/16/21 20:08 20:08 22:40 WBC 13.6 H RBC Hgb 9.5 L D Hct 29.4 L D MCV 80 L MCH 26 L MCHC RDW 20.3 H Plt Count 103 L Seg Neuts % (Manual) 97.0 H Lymphocytes % (Manual) Nucleated RBC % 2.0 H Seg Neutrophils # Man 13.2 H Lymphocytes # (Manual) 0.0 L PT INR APTT D-Dimer ABG pH POC ABG pCO2 ABG pO2 330.0 H ABG HCO3 ABG O2 Saturation 99.5 H ABG Base Excess -2.7 L ABG Hemoglobin 10.3 L ABG Oxyhemoglobin ABG Sodium ABG Potassium ABG Chloride ABG Glucose Carboxyhemoglobin Sodium 134 L Potassium 5.1 H Chloride Carbon Dioxide 20 L BUN 39 H Creatinine 3.6 H Glucose 116 H POC Glucose Lactic Acid Calcium 6.9 L Phosphorus Ferritin AST ALT Lactate Dehydrogenase Total Creatine Kinase CK-MB (CK-2) CK-MB (CK-2) Rel Index Troponin T C-Reactive Protein NT-Pro-B Natriuret Pep Total Protein Albumin HDL Cholesterol TSH Arterial Blood Glucose Urine WBC (Auto) Salicylates Acetaminophen Crossmatch 02/17/21 05:55 WBC RBC Hgb Hct MCV MCH MCHC RDW Plt Count Seg Neuts % (Manual) Lymphocytes % (Manual) Nucleated RBC % Seg Neutrophils # Man Lymphocytes # (Manual) PT INR APTT D-Dimer ABG pH POC ABG pCO2 ABG pO2 ABG HCO3 ABG O2 Saturation ABG Base Excess ABG Hemoglobin ABG Oxyhemoglobin ABG Sodium ABG Potassium ABG Chloride ABG Glucose Carboxyhemoglobin Sodium Potassium Chloride Carbon Dioxide BUN Creatinine Glucose POC Glucose 111 H Lactic Acid Calcium Phosphorus Ferritin AST ALT Lactate Dehydrogenase Total Creatine Kinase CK-MB (CK-2) CK-MB (CK-2) Rel Index Troponin T C-Reactive Protein NT-Pro-B Natriuret Pep Total Protein Albumin HDL Cholesterol TSH Arterial Blood Glucose Urine WBC (Auto) Salicylates Acetaminophen Crossmatch Chest x-ray: image reviewed (improving infiltrates) Allied health notes reviewed: nursing
--- NOTE | 2021-02-17 14:32 | Nuclear Medicine Report ---
NM BRAIN FLOW HISTORY: Cardiac arrest, altered mental status COMPARISON: None. TECHNIQUE: Following administration of radiopharmaceutical, followed by a saline flush, immediate dyn amic images of the head and neck were acquired in the anterior projection for one minute. Subsequentl y, static images of the head were obtained. RADIOPHARMACEUTICAL: 22 mCi of [id number] FINDINGS: DYNAMIC IMAGING: No activity in the internal carotid arteries with no identification of the anterior and middle cerebral arteries. DELAYED IMAGING: No intracranial acitivity is identified. Increased activity in the nose is indicati ve of increased collateral flow through the external carotids. Additional Findings: None. IMPRESSION: No evidence for intracranial blood flow. Signer Name: Elmo Harper Jr, MD Signed: 02/17/2021 2:27 PM Workstation Name: [id number]
[2021-02-17 15:35] LABS: Calcium 6.4 mg/dL (8.4-10.2)
--- NOTE | 2021-02-17 17:01 | Death Summary ---
Summary - Providers Consults: 02/15/21 13:19 Consult to Physician [CONS] Urgent Comment: Consulting Provider: ANKITA CALVO Physician Instructions: Reason For Exam: arrest resp failure 02/15/21 13:54 Consult to Physician [CONS] Urgent Comment: Consulting Provider: DAFNE ALFREDO Physician Instructions: Reason For Exam: hyperkalemia 02/15/21 14:19 Consult to Physician [CONS] Urgent Comment: Consulting Provider: FERNANDO FLOWERS Physician Instructions: Reason For Exam: cardiac arrest 02/15/21 16:14 Consult to Dietitian/Nutrition [CONS] Routine Physician Instructions: Reason For Exam: Reason for Consult: Write/Manage Tube Feeding 02/15/21 20:03 Consult to Dietitian/Nutrition [CONS] Routine Physician Instructions: Reason For Exam: Reason for Consult: Evaluate nutritional intake Consult to Physician [CONS] Routine Comment: Consulting Provider: AIDAN BENITO Physician Instructions: Reason For Exam: AMS Attending: MAX ADAME MD - summary Date of admission: 02/15/21 14:24
--- NOTE | 2021-02-17 19:01 | Electrocardiograph Report ---
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
--- NOTE | 2021-02-17 19:07 | Event Note ---
Date: 02/17/21 I received a call from Dr. Gerry Jeffries. Dr. Jeffries contacted the family Mr. Hari Jace, . at [phone] who verbalized that the family did not wish for the patient to be a donor. This was conveyed to [facility]. Patient will be terminally extubated.
--- NOTE | 2021-02-17 19:19 | Death Summary ---
Summary - Providers Consults: 02/15/21 13:19 Consult to Physician [CONS] Urgent Comment: Consulting Provider: ANKITA CALVO Physician Instructions: Reason For Exam: arrest resp failure 02/15/21 13:54 Consult to Physician [CONS] Urgent Comment: Consulting Provider: DAFNE ALFREDO Physician Instructions: Reason For Exam: hyperkalemia 02/15/21 14:19 Consult to Physician [CONS] Urgent Comment: Consulting Provider: FERNANDO FLOWERS Physician Instructions: Reason For Exam: cardiac arrest 02/15/21 16:14 Consult to Dietitian/Nutrition [CONS] Routine Physician Instructions: Reason For Exam: Reason for Consult: Write/Manage Tube Feeding 02/15/21 20:03 Consult to Dietitian/Nutrition [CONS] Routine Physician Instructions: Reason For Exam: Reason for Consult: Evaluate nutritional intake Consult to Physician [CONS] Routine Comment: Consulting Provider: AIDAN BENITO Physician Instructions: Reason For Exam: AMS Attending: MAX ADAME MD - summary Date of admission: 02/15/21 14:24 Date of : 02/17/21 Reason for admission: s/p cardiac arrest Significant findings: This is a 30-year-old male who was admitted on 02/15 with no known medical history via EMS after cardiac arrest. Prior to EMS arrival patient had a downtime of approximately 10 minutes. On EMS arrival patient was pulseless with dilated pupils and ACLS was initiated intubated with Kushal airway. ACLS was continued to the emergency department and patient was emergently intubated. Emergent transthoracic echocardiogram in the ED showed pericardial effusion and possible clot in the right atrium and right ventricle and left ventricular hypokinesis and right ventricular dyskinesis. Work-up revealed hyperkalemia, severe anemia with hemoglobin of 3.5, acute kidney injury and hypoglycemia. Patient was initiated on vasopressors in the ED and he was also hypothermic. Noted to have a GCS of 3. Neurology, nephrology, cardiology and [facility] were consulted. Allergy monitored for meaningful recovery for the initiation of hemodialysis which was on achieved. Patient received transfusions of PRBCs. Neurology suspected brain injury. Patient eventually had a brain flow study which showed no blood flow to brain and EEG was almost flatline in activity. Family eventually decided to terminally extubate the patient. Patient was pro nounced at [address] Wallace. Family was informed. S/p cardiopulmonary arrest Anoxic encephalopathy Septic shock Severe hyperkalemia Pericardial effusion Intracardiac thrombus. a possible clot in the right atrium and right ventricle seen on echocardiogram. Severe anemia acute kidney disease Bilateral pneumonia NSTEMI
[2021-02-17 22:35] VITALS: BP 123/80
--- NOTE | 2021-02-18 08:38 | Electrocardiograph Report ---
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 : 1990 Requested By: ANNI BREAUX Order Number: [id number] Reading MD: Ash Stephenson Measurements Intervals [place] Rate: 93 P: 0 TN: QRS: 79 QRSD: 90 T: 228 QT: 398 QTc: 496 Interpretive Statements Sinus rhythm Second deg AVB, Mob[place] I (Sudhakeso) Abnormal T, consider ischemia, diffuse leads Prolonged QT interval Compared to ECG 02/15/2021 13:17:33 T-wave abnormality now present Prolonged QT interval now present Atrial premature complex(es) no longer present First degree AV block no longer present Left posterior fascicular block no longer present Right bundle-branch block no longer present Possible ischemia still present Electronically Signed On 02-18-2021 8:37:48 EDT by Ash Stephenson
[2021-02-18] MEDS ORDERED: methylPREDNISolone Sod Succinate 40 MG/1 ML INJ IV SCH (10:00)
== END 2021-02-17 19:49 | DRG 871 ==
LOC: ED 12:20 → CC1 14:24
PROVIDERS: ADMIT Internal Medicine; ATTEND Internal Medicine
PROC: 5A1945Z Respiratory Ventilation, 24-96 Consecutive Hours (ICD-10-PCS; principal; 2021-02-15)
PROC: 0BH17EZ Insertion of Endotracheal Airway into Trachea, Via Natural or Artificial Opening (ICD-10-PCS; 2021-02-15)
PROC: 4A033R1 Measurement of Arterial Saturation, Peripheral, Percutaneous Approach (ICD-10-PCS; 2021-02-15)
PROC: 5A1D70Z Performance of Urinary Filtration, Intermittent, Less than 6 Hours Per Day (ICD-10-PCS; 2021-02-15)
PROC: 06HY33Z Insertion of Infusion Device into Lower Vein, Percutaneous Approach (ICD-10-PCS; 2021-02-15)
PROC: 02HV33Z Insertion of Infusion Device into Superior Vena Cava, Percutaneous Approach (ICD-10-PCS; 2021-02-15)
PROC: B548ZZA Ultrasonography of Superior Vena Cava, Guidance (ICD-10-PCS; 2021-02-15)
PROC: 5A12012 Performance of Cardiac Output, Single, Manual (ICD-10-PCS; 2021-02-15)
PROC: 5A1D70Z Performance of Urinary Filtration, Intermittent, Less than 6 Hours Per Day (ICD-10-PCS; 2021-02-16)
DX: A41.9 Sepsis, unspecified organism (principal); J18.9 Pneumonia, unspecified organism; I21.4 Non-ST elevation (NSTEMI) myocardial infarction; R65.21 Severe sepsis with septic shock; J96.01 Acute respiratory failure with hypoxia; N18.5 Chronic kidney disease, stage 5; G93.1 Anoxic brain damage, not elsewhere classified; I31.3 Pericardial effusion (noninflammatory); I46.9 Cardiac arrest, cause unspecified; D64.9 Anemia, unspecified; E87.5 Hyperkalemia; Z20.822 Contact with and (suspected) exposure to COVID-19; E16.2 Hypoglycemia, unspecified; R13.12 Dysphagia, oropharyngeal phase
CPT/HCPCS: 36415; 36430; 36600; 71045; 74018; 78601; 80048; 80053; 80061; 80074; 80307; 80320; 81001; 82140; 82330; 82550; 82553; 82728; 82803; 82805; 82962; 83615; 83735; 83880; 84100; 84145; 84439; 84443; 84484; 85007; 85025; 85379; 85610; 85730; 86140; 86850; 86900; 86901; 86920; 87040; 87070; 87086; 87205; 93005; 93306; 94002; 94003; 94644; 95819; 99292; G0378; A9512; C9113; G0480; J0171; J0360; J0456; J0461; J0696; J1265; J1644; J1720; J2001; J2597; J2704; J2920; J3475; J7040; J7050; J7070; P9016; U0003